=== PATIENT | female | born 1985 | race Caucasian/White ===

== ENCOUNTER 2016-05-19 13:56 | Emergency (ER) | payer BC ==
[~2016-05-19] VITALS: Ht 152.4 cm; Wt 104.1 kg
[~2016-05-19 13:56] MED LIST: ACET-1256 PO; LEVO200T32 PO
[2016-05-19 14:00] VITALS: TEMP 36.8; Ht 152.4 cm; Wt 104.1 kg
[2016-05-19] MEDS ORDERED: PRENTAB65 PO (14:27)
[2016-05-19] MEDS ORDERED: LEVO25TA5 PO (14:27)
[2016-05-19] MEDS ORDERED: LEVO200T6 PO (14:28)
[2016-05-19 14:47] LABS: BASO % 0.3 %; BASO ABS # 0.02 K/uL (0-0.2); COMPLETE YES; HEMATOCRIT 32.4 % (37-47); IG% 0.2 %; LYMPH % 28.1 %; LYMPH ABS # 1.76 K/uL (1.2-3.4); MEAN CELL VOLUME 89.5 fL (80-100); MEAN CORPUSCULAR HEMOGLOBIN 29.8 pg (25-34); MEAN CORPUSCULAR HGB CONC 33.3 g/dl (32-36); MEAN PLATELET VOLUME 9.5 fL (7.4-10.4); MONO % 9.6 %; NEUT % 60.8 %; PLATELET COUNT 262 K/uL (130-400); RED BLOOD COUNT 3.62 M/uL (4.2-5.4); WHITE BLOOD COUNT 6.27 K/uL (4.8-10.8)
[2016-05-19 14:57] LABS: PARTIAL THROMBOPLASTIN RATIO 1.1; PROTHROMBIN TIME (PATIENT) 10.7 SECONDS (9.0-12.0)
[2016-05-19 15:14] LABS: BUN/CREATININE RATIO 14.1 (10-20); CALCIUM 8.4 mg/dl (8.5-10.1); CREATININE 0.87 mg/dl (0.60-1.20); POTASSIUM 3.7 mmol/L (3.5-5.1)
[2016-05-19 15:17] LABS: ALB/GLOB RATIO 1.1 (0.9-2)
[2016-05-19 15:34] LABS: URINE APPEARANCE CLEAR (CLEAR); URINE BILIRUBIN NEG (NEG); URINE COLOR YELLOW; URINE NITRITE NEG (NEG); URINE PH 7.5 (4.5-7.5); URINE SPECIFIC GRAVITY 1.014 (1.000-1.030); UROBILINOGEN NEG (NEG)
[2016-05-19 15:36] LABS: MANUAL MICROSCOPIC REQUIRED? NO; REVIEW REQ? NO
--- NOTE | 2016-05-19 15:47 | DIAGNOSTIC IMAGING REPORT ---
Limited ultrasound <14 WKS SINGLE CLINICAL HISTORY: EVALUATE OB-MEDICAL SCRIBE/VAGINAL BLEEDING vaginal bleeding TECHNIQUE: Transabdominal as well as transvaginal ultrasound COMPARISON STUDY: None FINDINGS: Intrauterine gestational sac is confirmed. pole is not identified. This may gestational sac age is 5 weeks 1 day. It is possible that it is too early to evaluate for viable . The ovaries show no evidence for enlargement. IMPRESSION: 1. Intrauterine gestational sac estimated at 5 3 -- 5 weeks 1 day age. 2. A pole cannot be confirmed based on this exam, although it potentially is secondary to the early gestational age. 3. Follow-up study is recommended in 7-10 days to confirm or exclude viability. Electronically signed by: Jose C Fan M.D. 05/19/2016 3:45 PM Dictated Date/Time: 05/19/2016 3:43 PM
[2016-05-19 17:26] VITALS: BP 110/64; PULSE 91; O2SAT 97
--- NOTE | 2016-05-19 17:52 | EMERGENCY ROOM VISIT NOTE ---
History Report prepared by Akila: Ashvin Doty Under the Supervision of: Dr. Marko Juarez M.D. First contact with patient: 14:07 Chief Complaint: ED VAG BLEEDING Stated Complaint: 7 1/2 WKS PREG., BLEEDING, CRAMPS History of Present Illness The patient is a 30 year old female who presents to the Emergency Room with complaints of mild vaginal bleeding starting today. Yesterday, the patient had an orange-tinge discharge noticed after wiping. Today, the patient started having spotting with bright red blood. She denies passing any blood clots or tissues. She currently complains of a cramping abdominal pain starting today. The patient is currently 7 and a half weeks based on her last period. She denies any prior bleeding with her current . This is her third . She has a history of one miscarriage which occurred very early in the first . She has one daughter. Pt denies LOC, headache, fevers, chills, diaphoresis, visual changes, neck pain, chest pain, breathing difficulties, nausea, vomiting, back pain, melena, hematochezia, urinary symptoms, numbness, weakness, lymphadenopathy, rash, or other complaints. Her first OB-SEMICONDUCTOR PROCESSOR appointment for her current is on May 23. The patient's blood type is O positive. Source of History: patient Onset: today Position: other (global) Symptom Intensity: mild Quality: other (vaginal bleeding) Associated Symptoms: + abdominal pain Review of Systems See HPI for pertinent positives and negatives. A total of ten systems were reviewed and were otherwise negative. Past Medical & Surgical Medical Problems: (1) Miscarriage (2) (3) Sciatica Family History Patient reports no known family medical history. Social History Smoking Status: Never Smoker Marital Status: single Occupation Status: employed Current/Historical Medications Scheduled Levothyroxine Sodium (Levothyroxine Sodium), 25 MCG PO DAILY Levothyroxine Sodium (Levothyroxine Sodium), 200 MCG PO DAILY Multivit-Min W/Fe-Fa (), 1 TAB PO DAILY Allergies Coded Allergies: No Known Allergies (Verified , 05/19/16) Physical Exam Vital Signs Date Time Temp Pulse Resp B/P Pulse Ox O2 Delivery O2 Flow Rate FiO2 05/19/16 17:26 91 16 110/64 97 05/19/16 16:36 79 14 101/64 99 Room Air 05/19/16 15:30 84 118/77 100 Room Air 05/19/16 14:00 36.8 87 20 107/66 100 Room Air Physical Exam GENERAL: Awake, alert, well-appearing, in no distress HENT: Normocephalic, atraumatic. Oropharynx unremarkable. EYES: Normal conjunctiva. Sclera non-icteric. NECK: Supple. No nuchal rigidity. FROM. No JVD. RESPIRATORY: Clear to auscultation. CARDIAC: Regular rate, normal rhythm. Extremities warm and well perfused. Pulses equal. ABDOMEN: Soft, non-distended. Minimal suprapubic tenderness to palpation. No rebound or guarding. No masses. : Normal female anatomy. Cervix is closed with scant amount of bleeding from the os. Small amount of blood in the vaginal vault. MUSCULOSKELETAL: Chest examination reveals no tenderness. The back is symmetrical on inspection without obvious abnormality. There is no CVA tenderness to palpation. No joint edema. LOWER EXTREMITIES: Calves are equal size bilaterally and non-tender. No edema. No discoloration. NEURO: Normal sensorium. No sensory or motor deficits noted. SKIN: No rash or jaundice noted. Medical Decision & Procedures ER Provider Diagnostic Interpretation: US: Radiology results as stated below per my review and radiologist interpretation Limited ultrasound <14 WKS SINGLE CLINICAL HISTORY: EVALUATE OB-SEMICONDUCTOR PROCESSOR/VAGINAL BLEEDING vaginal bleeding TECHNIQUE: Transabdominal as well as transvaginal ultrasound COMPARISON STUDY: None FINDINGS: Intrauterine gestational sac is confirmed. pole is not identified. This may gestational sac age is 5 weeks 1 day. It is possible that it is too early to evaluate for viable . The ovaries show no evidence for enlargement. IMPRESSION: 1. Intrauterine gestational sac estimated at 5 3 -- 5 weeks 1 day age. 2. A pole cannot be confirmed based on this exam, although it potentially is secondary to the early gestational age. 3. Follow-up study is recommended in 7-10 days to confirm or exclude viability. Electronically signed by: Jose C Fan M.D. 05/19/2016 3:45 PM Dictated Date/Time: 05/19/2016 3:43 PM Laboratory Results 05/19/16 14:35 Red Blood Count 3.62, Mean Corpuscular Volume 89.5, Mean Corpuscular Hemoglobin 29.8, Mean Corpuscular Hemoglobin Concent 33.3, Mean Platelet Volume 9.5, Neutrophils (%) (Auto) 60.8, Lymphocytes (%) (Auto) 28.1, Monocytes (%) (Auto) 9.6, Eosinophils (%) (Auto) 1.0, Basophils (%) (Auto) 0.3, Neutrophils # (Auto) 3.82, Lymphocytes # (Auto) 1.76, Monocytes # (Auto) 0.60, Eosinophils # (Auto) 0.06, Basophils # (Auto) 0.02 05/19/16 14:35 Test 05/19/16 14:35 05/19/16 14:45 White Blood Count 6.27 K/uL (4.8-10.8) Red Blood Count 3.62 M/uL (4.2-5.4) Hemoglobin 10.8 g/dL (12.0-16.0) Hematocrit 32.4 % (37-47) Mean Corpuscular Volume 89.5 fL (80-100) Mean Corpuscular Hemoglobin 29.8 pg (25-34) Mean Corpuscular Hemoglobin Concent 33.3 g/dl (32-36) Platelet Count 262 K/uL (130-400) Mean Platelet Volume 9.5 fL (7.4-10.4) Neutrophils (%) (Auto) 60.8 % Lymphocytes (%) (Auto) 28.1 % Monocytes (%) (Auto) 9.6 % Eosinophils (%) (Auto) 1.0 % Basophils (%) (Auto) 0.3 % Neutrophils # (Auto) 3.82 K/uL (1.4-6.5) Lymphocytes # (Auto) 1.76 K/uL (1.2-3.4) Monocytes # (Auto) 0.60 K/uL (0.11-0.59) Eosinophils # (Auto) 0.06 K/uL (0-0.5) Basophils # (Auto) 0.02 K/uL (0-0.2) RDW Standard Deviation 47.9 fL (36.4-46.3) RDW Coefficient of Variation 14.5 % (11.5-14.5) Immature Granulocyte % (Auto) 0.2 % Immature Granulocyte # (Auto) 0.01 K/uL (0.00-0.02) Prothrombin Time 10.7 SECONDS (9.0-12.0) Prothromb Time International Ratio 1.0 (0.9-1.1) Activated Partial Thromboplast Time 28.7 SECONDS (21.0-31.0) Partial Thromboplastin Ratio 1.1 Anion Gap 9.0 mmol/L (3-11) Est Creatinine Clear Calc Drug Dose 104.8 ml/min Estimated GFR () 105.1 Estimated GFR (Non- 90.7 BUN/Creatinine Ratio 14.1 (10-20) Calcium Level 8.4 mg/dl (8.5-10.1) Total Bilirubin 0.6 mg/dl (0.2-1) Aspartate Amino Transf (AST/SGOT) 14 U/L (15-37) Alanine Aminotransferase (ALT/SGPT) 16 U/L (12-78) Alkaline Phosphatase 57 U/L (45-117) Total Protein 7.4 gm/dl (6.4-8.2) Albumin 3.9 gm/dl (3.4-5.0) Globulin 3.5 gm/dl (2.5-4.0) Albumin/Globulin Ratio 1.1 (0.9-2) Human Chorionic Gonadotropin, Quant 3083 mIU/mL Urine Color YELLOW Urine Appearance CLEAR (CLEAR) Urine pH 7.5 (4.5-7.5) Urine Specific Guy 1.014 (1.000-1.030) Urine Protein NEG (NEG) Urine Glucose (UA) NEG (NEG) Urine Ketones NEG (NEG) Urine Occult Blood TRACE (NEG) Urine Nitrite NEG (NEG) Urine Bilirubin NEG (NEG) Urine Urobilinogen NEG (NEG) Urine Leukocyte Esterase NEG (NEG) Urine WBC (Auto) 0 /hpf (0-5) Urine RBC (Auto) 0-4 /hpf (0-4) Urine Hyaline Casts (Auto) 0 /lpf (0-5) Urine Epithelial Cells (Auto) 10-20 /lpf (0-5) Urine Bacteria (Auto) NEG (NEG) Urine Test POS (NEG) Laboratory results reviewed by ms ED Course 1407: The patient was evaluated in room C08. A complete history and physical exam was performed. 1611: I discussed the patient's case with Dr. Betancourt, OB-SEMICONDUCTOR PROCESSOR with [facility]. She recommended bleeding precautions which have already been discussed with the patient. She advised for the patient to keep her OB-SEMICONDUCTOR PROCESSOR appointment on May [id number]: I reevaluated the patient. Discussed results and discharge instructions: She verbalized understanding and agreement. The patient is ready for discharge. Medical Decision Prior records/ancillary studies reviewed. Triage Nursing notes reviewed and agree them. Additional history obtained from the family. The patient's history was concerning for vaginal bleeding and abdominal pain. Differential diagnosis: Etiologies such as ectopic , dysfunction uterine bleeding, bleeding dyscrasia, trauma, infection, as well as others were entertained. Physical examination: As above. Closed os. Minimal blood noted in the cervix and the vaginal vault ER treatment provided: Patient was hydrated with IV fluids On reassessment the patient felt better. Diagnostic interpretation by me: The labs revealed the patient to the Rh positive. CBC, coagulation studies, and chemistries were unremarkable. Quantitative hCG was 3083 Imaging studies: Ultrasound as above Consultation: A consultation was placed with the director of teaching and learning physician, Dr. Betancourt. The case was discussed and diagnostics were reviewed. As the patient is very early vaginal bleeding instructions and precautions are recommended. She will be followed up closely in the office first thing next week. If she worsens in any way or has any complication she will come back to the emergency department for reevaluation.. The patient has first trimester vaginal bleeding. It is too early to tell what will happen with this . There is no evidence of ectopic . Clinically the patient is doing well. She and her significant other feel comfortable with conservative management. She will return if she has any problems. By the evaluation outlined above emergent etiologies such as bleeding dyscrasia , ectopic , trauma, as well as others were deemed relatively unlikely. The patient and significant other were informed about the findings as listed above. All questions were answered and they were pleased with the treatment. Return instructions were outlined and the patient was discharged in stable condition. Outpatient prescription management: None Referral: The patient was referred to WORKFORCE ADVISOR for follow-up for a recheck of her current condition. The chart was completed utilizing [employer] Speech voice recognition software. Grammatical errors, random word insertions, pronoun errors, and incomplete sentences are an occasional consequence of this system due to software limitations, ambient noise, and hardware issues. Any formal questions or concerns about the content, text, or information contained within the body of this dictation should be directly addressed to the physician for clarification. Consults Time Called: 1606 Consulting Physician: Dr. Betancourt, OB-SEMICONDUCTOR PROCESSOR with [facility]. Returned Call: 1 I discussed the patient's case with Dr. Betancourt, OB-SEMICONDUCTOR PROCESSOR with [facility]. She recommended bleeding precautions which have already been discussed with the patient. She advised for the patient to keep her OB-SEMICONDUCTOR PROCESSOR appointment on May 23. Impression Primary Impression: First trimester bleeding Scribe Attestation The scribe's documentation has been prepared under my direction and personally reviewed by me in its entirety. I confirm that the note above accurately reflects all work, treatment, procedures, and medical decision making performed by me. Departure Information Dispostion Home / Self-Care Referrals Karthikeyan Sevilla M.D. (PCP) Forms HOME CARE DOCUMENTATION FORM, IMPORTANT VISIT INFORMATION, WORK / SCHOOL INSTRUCTIONS Patient Instructions My [facility] Additional Instructions Return to the emergency department for passing out, abdominal pain, bleeding more than 3 pads an hour for 3 consecutive hours, or as needed. No tampon use, intercourse, physical exertion, or strenuous activity. Rest and drink plenty of fluids. Follow-up with WORKFORCE ADVISOR as scheduled on Monday.
--- NOTE | 2016-05-20 09:36 | DIAGNOSTIC IMAGING REPORT ---
Limited ultrasound <14 WKS SINGLE CLINICAL HISTORY: EVALUATE OB-THREAD SINGER/VAGINAL BLEEDING vaginal bleeding TECHNIQUE: Transabdominal as well as transvaginal ultrasound COMPARISON STUDY: None FINDINGS: Intrauterine gestational sac is confirmed. pole is not identified. This may gestational sac age is 5 weeks 1 day. It is possible that it is too early to evaluate for viable . The ovaries show no evidence for enlargement. IMPRESSION: 1. Intrauterine gestational sac estimated at 5 3 -- 5 weeks 1 day age. 2. A pole cannot be confirmed based on this exam, although it potentially is secondary to the early gestational age. 3. Follow-up study is recommended in 7-10 days to confirm or exclude viability. Electronically signed by: Jose C Fan M.D. 05/19/2016 3:45 PM Dictated Date/Time: 05/19/2016 3:43 PM
[2016-05-23] MEDS ORDERED: METR500T PO (21:06)
[2016-06-28] MEDS ORDERED: OXYC-57 PO (16:18)
== END 2016-05-19 17:29 | disposition home or self-care (01) ==
LOC: C.EDB 13:58 → C.EDC 17:29
DX: O46.91 Antepartum hemorrhage, unspecified, first trimester (principal)

== ENCOUNTER 2016-05-21 08:09 | Emergency (ER) | payer BC ==
[~2016-05-21] VITALS: Ht 162.6 cm; Wt 100.7 kg
[~2016-05-21 08:09] MED LIST changes: -ACET-1256 PO; -LEVO200T32 PO; +LEVO200T6 PO; +LEVO25TA5 PO; +PRENTAB65 PO
[2016-05-21 08:12] VITALS: TEMP 36.9; Ht 162.6 cm; Wt 100.7 kg
[2016-05-21] MEDS ORDERED: SODIUM CHLORIDE 0.9% 1000ML 1,000 ML IV ONE ×2 (08:30→11:00)
[2016-05-21 08:52] LABS: HEMATOCRIT 33.9 % (37-47); MEAN CELL VOLUME 90.2 fL (80-100); MEAN CORPUSCULAR HEMOGLOBIN 30.6 pg (25-34); MEAN CORPUSCULAR HGB CONC 33.9 g/dl (32-36); MEAN PLATELET VOLUME 9.8 fL (7.4-10.4); PLATELET COUNT 246 K/uL (130-400); RED BLOOD COUNT 3.76 M/uL (4.2-5.4); WHITE BLOOD COUNT 6.09 K/uL (4.8-10.8)
--- NOTE | 2016-05-21 08:58 | EMERGENCY ROOM VISIT NOTE ---
History Report prepared by Akila: Catie Dunaway Under the Supervision of: Dr. Connor Tracy M.D. First contact with patient: 08:21 Chief Complaint: ED VAG BLEEDING Stated Complaint: ABD PAIN, VAGINAL BLEEDING,6 WK PREG History of Present Illness The patient is a 30 year old female who presents to the Emergency Room with complaints of worsening vaginal bleeding that began . She currently rates her discomfort as a 9/10 in severity. The patient states that this is her third , noting that she has had one previous miscarriage and has one child at home. She states that she was evaluated in the emergency department on after consulting her unix engineer with vaginal bleeding. The patient states that today she is passing clots of blood. She also associates lower abdominal pain and severe pain into her left leg. The patient states that lying flat worsens her discomfort. She states that her blood type is O+. The patient denies any fever or chills and mentions that she has had a cholecystectomy in the past. Source of History: patient Onset: Position: other (vaginal) Symptom Intensity: 9/10 Quality: other (bleeding) Timing: worsening Modifying Factors (Worsening): other (lying flat) Associated Symptoms: + abdominal pain (lower), No chills, No fevers Note: Associated Symptoms: severe pain into her left leg Review of Systems No additional complaints since visit two days ago. Past Medical & Surgical Medical Problems: (1) Miscarriage (2) (3) Sciatica Surgical Problems: (1) S/P cholecystectomy (2) S/P thyroid surgery Family History Cancer Diabetes mellitus Heart disease Hypertension Social History Smoking Status: Never Smoker Smokeless Tobacco Use: No Alcohol Use: none Marital Status: Housing Status: lives with family Occupation Status: employed Current/Historical Medications Scheduled Levothyroxine Sodium (Levothyroxine Sodium), 25 MCG PO DAILY Levothyroxine Sodium (Levothyroxine Sodium), 200 MCG PO DAILY Multivit-Min W/Fe-Fa (), 1 TAB PO DAILY Scheduled PRN Oxycodone/Acetaminophen 5MG/325MG (Percocet 5MG/325MG), 1-2 TABLETS PO Q4H PRN for Pain Allergies Coded Allergies: No Known Allergies (Verified , 05/21/16) Physical Exam Vital Signs Date Time Temp Pulse Resp B/P Pulse Ox O2 Delivery O2 Flow Rate FiO2 2/11/17 13:28 80 18 89/51 99 05/21/16 13:04 80 18 89/51 99 Room Air 05/21/16 10:55 74 18 110/66 99 Room Air 05/21/16 09:01 76 20 92/69 100 Room Air 84 103/73 88 93/71 05/21/16 08:12 36.9 105 20 98/70 100 Room Air Physical Exam GENERAL: Patient awake, alert, in moderate to severe distress. Patient appears pale. SKIN: No erythema, pallor, cyanosis or rash HEENT: Normal head, pupils equal, reactive to light and accommodation. Neck: Without adenopathy, no neck vein distention. LUNGS: Clear to auscultation. No wheezes, no rales, no rhonchi. HEART: No murmurs. No gallops. No rubs ABDOMEN: Soft, nontender PELVIC: 20-50 cc dark maroon blood in vaginal vault, os closed to ring forcep, uterus slightly enlarged and tilted to left, nontender, no adnexal masses palpated. EXTREMITIES: No signs of trauma or infection. NEUROLOGIC: Cranial nerves II-XII within normal limits. No gross motor sensory function deficits. Medical Decision & Procedures ER Provider Diagnostic Interpretation: US results are interpretations by the radiologist and per my review. ULTRASOUND OF THE PELVIS CLINICAL HISTORY: Vaginal bleeding. COMPARISON STUDY: Pelvic ultrasound dated 05/19/16. Reportedly 6 weeks . TECHNIQUE: Real-time, grayscale, and color flow sonography of the pelvis is performed both transabdominally and endovaginally. Images are reviewed in the transverse and longitudinal planes. FINDINGS: Uterus: The uterus is normal in size and echotexture, measuring 9.3 x 5.2 x 6.3 cm. Gestation: There is a small gestational sac identified. The mean gestational sac diameter measures 0.88 cm. This is too small for accurate estimation of dates. No yolk sac or parts are identified. Ovaries: The ovaries are normal in size and morphology. The right ovary measures 2.9 x 2.2 x 2.6 cm and the left ovary measures 2.5 x 1.3 x 2.5 cm. A corpus luteum is unremarkable. Normal Doppler waveforms are shown within both ovaries. Pelvis: There is no free fluid in the cul-de-sac. No concerning adnexal lesion is seen. IMPRESSION: 1. There is a small gestational sac identified. No parts are seen and this has not significantly changed from 05/19/2016. This could simply reflect an intrauterine gestation that is too small to visualize or possibly a blighted ovum. Although there is no concerning adnexal lesion identified, without a confirmed intrauterine gestation an ectopic would be impossible to exclude. Close clinical, laboratory, and sonographic follow-up is recommended. 2. The ovaries are normal as visualized noting a corpus luteum on the right. Electronically signed by: Patrick Ta M.D. 05/21/2016 10:15 AM Laboratory Results 05/21/16 08:40 Test 05/21/16 08:40 Red Blood Count 3.76 M/uL (4.2-5.4) Mean Corpuscular Volume 90.2 fL (80-100) Mean Corpuscular Hemoglobin 30.6 pg (25-34) Mean Corpuscular Hemoglobin Concent 33.9 g/dl (32-36) RDW Standard Deviation 47.9 fL (36.4-46.3) RDW Coefficient of Variation 14.5 % (11.5-14.5) Mean Platelet Volume 9.8 fL (7.4-10.4) Human Chorionic Gonadotropin, Quant 2751 mIU/mL Laboratory results as stated above per my review. Medications Administered Medications (Trade) Dose Ordered Sig/Michaelle Route Start Time Stop Time Status Last Admin Dose Admin Sodium Chloride 1,000 ml @ 1,000 mls/hr Q1H ONCE IV 05/21/16 08:30 05/21/16 09:29 DC 05/21/16 08:43 1,000 MLS/HR Sodium Chloride (Nss 1000ml) 1,000 ml @ 1,000 mls/hr Q1H ONCE IV 05/21/16 11:00 05/21/16 11:59 DC 05/21/16 10:59 1,000 MLS/HR Oxycodone/ Acetaminophen (Percocet 5-325mg Tab) 1 tab NOW ONCE PO 05/21/16 12:00 05/21/16 12:01 DC 05/21/16 11:52 1 TAB ED Course 0823: Past medical records reviewed. The patient was evaluated in room B6. A complete history and physical examination was performed. 0830: Ordered Sodium Chloride 1000 ml @ 1000 mls/hr IV. 0831: I performed the pelvic exam at this time. See physical exam for further detail. Per records from 05/17/16 the patient was typed and crossed and her blood type is O+. 1100: Ordered Sodium Chloride 1000 ml @ 1000 mls/hr IV. 1137: I reevaluated the patient and she is resting comfortably. I discussed the exam findings with her and I discussed the treatment plan. She verbalized complete understanding and agreement. She is ready to go home. 1147: I discussed the patients case with Dr. Saxena, unix engineer. He will follow up with the patient in the office. 1200: Ordered Oxycodone/Acetaminophen 1 tab PO. Medical Decision Nurses notes reviewed. Medical history sheet reviewed. Differential diagnosis includes but is not limited to: threatened ab, inevitable ab, complete ab. The patient is here with vaginal bleeding. The patient was seen 2 days ago for the same problem. Ultrasound today as listed above. Quantitative beta hCG is down from what it was 2 days ago. In all likelihood the patient has lost the . I discussed this with the patient and her . I also discussed this with Dr. Saxena over the phone. The patient is having some pelvic pain. She was given 1 Percocet here and prescription for the same. She is to follow up with EXECUTIVE DIRECTOR in 2 days. The patient was encouraged to return here sooner if she has having heavy bleeding or becoming lightheaded. The patient's hemoglobin was checked. She is Rh+. I do not believe the patient has an ectopic . [place] Drug Monitoring Program Search Results: patient reviewed within database, no issues identified Consults Time Called: 1147 Consulting Physician: Dr. Saxena, unix engineer Returned Call: 1146 I discussed the patients case with Dr. Saxena, unix engineer. He will follow up with the patient in the office. Impression Primary Impression: Inevitable Scribe Attestation The scribe's documentation has been prepared under my direction and personally reviewed by me in its entirety. I confirm that the note above accurately reflects all work, treatment, procedures, and medical decision making performed by me. Departure Information Dispostion Home / Self-Care Prescriptions Oxycodone/Acetaminophen 5MG/325MG (PERCOCET 5MG/325MG) Tab 1-2 TABLETS PO Q4H Y for Pain, #10 TAB Prov: Connor Tracy M.D. 05/21/16 Referrals Karthikeyan Sevilla M.D. (PCP) Forms HOME CARE DOCUMENTATION FORM, IMPORTANT VISIT INFORMATION Patient Instructions ED Miscarriage Poss, My [facility] Additional Instructions Drink extra fluids. Stay off your feet as much as possible. Return here if you're having heavy vaginal bleeding/cramping Follow-up with your EXECUTIVE DIRECTOR on Monday.
--- NOTE | 2016-05-21 10:16 | DIAGNOSTIC IMAGING REPORT ---
ULTRASOUND OF THE PELVIS CLINICAL HISTORY: Vaginal bleeding. COMPARISON STUDY: Pelvic ultrasound dated 05/19/16. Reportedly 6 weeks . TECHNIQUE: Real-time, grayscale, and color flow sonography of the pelvis is performed both transabdominally and endovaginally. Images are reviewed in the transverse and longitudinal planes. FINDINGS: Uterus: The uterus is normal in size and echotexture, measuring 9.3 x 5.2 x 6.3 cm. Gestation: There is a small gestational sac identified. The mean gestational sac diameter measures 0.88 cm. This is too small for accurate estimation of dates. No yolk sac or parts are identified. Ovaries: The ovaries are normal in size and morphology. The right ovary measures 2.9 x 2.2 x 2.6 cm and the left ovary measures 2.5 x 1.3 x 2.5 cm. A corpus luteum is unremarkable. Normal Doppler waveforms are shown within both ovaries. Pelvis: There is no free fluid in the cul-de-sac. No concerning adnexal lesion is seen. IMPRESSION: 1. There is a small gestational sac identified. No parts are seen and this has not significantly changed from 05/19/2016. This could simply reflect an intrauterine gestation that is too small to visualize or possibly a blighted ovum. Although there is no concerning adnexal lesion identified, without a confirmed intrauterine gestation an ectopic would be impossible to exclude. Close clinical, laboratory, and sonographic follow-up is recommended. 2. The ovaries are normal as visualized noting a corpus luteum on the right. Electronically signed by: Patrick Ta M.D. 05/21/2016 10:15 AM Dictated Date/Time: 05/21/2016 10:09 AM
[2016-05-21] MEDS ORDERED: OXYC-57 PO (11:58)
[2016-05-21] MEDS ORDERED: OXYCODONE/ACETAMINOPHEN 5-325 TAB PO ONE (12:00)
[2016-05-21 13:28] VITALS: BP 89/51; PULSE 80; O2SAT 99
[2016-05-23] MEDS ORDERED: METR500T PO (21:06)
[2016-06-28] MEDS ORDERED: OXYC-57 PO (16:18)
== END 2016-05-21 13:31 | disposition home or self-care (01) ==
LOC: C.EDB 08:12
DX: O03.9 Complete or unspecified spontaneous abortion without complication (principal); Z3A.01 Less than 8 weeks gestation of pregnancy; Z79.899 Other long term (current) drug therapy

== ENCOUNTER 2016-05-23 11:54 | Observation (INO) | payer BC ==
[2016-05-23] VITALS (7 sets, daily range): BP systolic 90–125; BP diastolic 58–79; PULSE 74–90; TEMP 36.5–37.3; O2SAT 94–100; Ht 162.6 cm; Wt 100.0 kg
[~2016-05-23] VITALS: Ht 162.6 cm; Wt 100.0 kg
[~2016-05-23 11:54] MED LIST changes: +OXYC-57 PO
[2016-05-23] MEDS ORDERED: NURSING VERBAL MED ORDER ONE ×2 (12:45→13:00)
[2016-05-23] MEDS ORDERED: SODIUM CHLORIDE 0.9% 1000ML 1,000 ML IV SCH ×2 (13:00→19:07)
[2016-05-23] MEDS: MoRPHine SULFATE 4 MG/ML 1 ML CARP\\VIAL IV PRN ×2 (13:01→14:10)
[2016-05-23 13:40] LABS: HEMATOCRIT 29.5 % (37-47); MEAN CELL VOLUME 87.8 fL (80-100); MEAN CORPUSCULAR HEMOGLOBIN 29.2 pg (25-34); MEAN CORPUSCULAR HGB CONC 33.2 g/dl (32-36); MEAN PLATELET VOLUME 9.1 fL (7.4-10.4); PLATELET COUNT 235 K/uL (130-400); RED BLOOD COUNT 3.36 M/uL (4.2-5.4); WHITE BLOOD COUNT 5.18 K/uL (4.8-10.8)
[2016-05-23] MEDS ORDERED: INFLUENZA VIRUS QUAD VACCINE 0.5 ML SYR IM. ONE (15:00)
[2016-05-23] MEDS ORDERED: INFLUENZA ADMINISTRATION CHARGE ONE (15:00)
[2016-05-23] MEDS: MoRPHine SULFATE 2 MG/ML CARP IV PRN ×2 (15:08→20:04)
[2016-05-23] MEDS ORDERED: LIDOCAINE HCL 2% 2 ML VIAL (20MG/ML) ONE (16:20)
[2016-05-23] MEDS ORDERED: PHENYLEPHRINE HCL INJ 10 MG/ML VIAL ONE (16:20)
[2016-05-23] MEDS ORDERED: MIDAZOLAM HCL 1 MG/ML 2ML VIAL ONE (16:20)
[2016-05-23] MEDS ORDERED: ROCURONIUM BROMIDE 10 MG/ML 5 ML VIAL ONE ×2 (16:20→18:18)
[2016-05-23] MEDS ORDERED: GLYCOPYRROLATE INJ 0.2 MG/ML VIAL ONE (16:20)
[2016-05-23] MEDS ORDERED: ONDANSETRON INJ 2 MG/ML 2 ML VIAL ONE (16:20)
[2016-05-23] MEDS ORDERED: SUCCINYLCHOLINE CHLORIDE 20 MG/ML 10 ML VIAL IV ONE (16:20)
[2016-05-23] MEDS ORDERED: FENTANYL CITRATE INJ 50 MCG/1 ML 2 ML VIAL ONE ×2 (16:20→18:45)
[2016-05-23] MEDS ORDERED: PROPOFOL IV EMULSION 10 MG/ML 20 ML VIAL IV ONE ×2 (16:20→18:18)
[2016-05-23] MEDS ORDERED: NEOSTIGMINE METHYLSULFATE 5 MG/5 ML SYR ONE (16:20)
[2016-05-23] MEDS ORDERED: DEXAMETHASONE SOD INJ 4 MG/ML VIAL ONE (16:20)
--- NOTE | 2016-05-23 17:39 | History and Physical ---
History & Physical Date & Time of Service: May 23, 2016 at 17:23 Chief Complaint: Missed Primary Care Physician: Karthikeyan Sevilla M.D. History of Present Illness Source: patient Patient is 30yo @ 7w6d weeks by LMP of 03/29/16. She has had pelvic pain and vaginal bleeding. Ultrasound x 3 shows gestational sac with no viable . bHCG has dropped from 3083 to 2751 over 48 hours. Today's ultrasound shows the gestational sac low in the uterus, lower than prior imaging, close to the cervix. Patient was offered options of watchful waiting, cytotec induction, or surgery, and she elected to undergo surgical treatment. History of vaginal delivery x 1, SAB that passed on its own. Past Medical/Surgical History Medical Problems: (1) Miscarriage Status: Resolved (2) Status: Resolved (3) Sciatica Status: Chronic Surgical Problems: (1) S/P cholecystectomy Status: Resolved (2) S/P thyroid surgery Status: Resolved Family History Cancer Diabetes mellitus Heart disease Hypertension Social History Smoking Status: Never Smoker Marital Status: Occupational Status: employed Immunizations History of Influenza Vaccine: Unknown History of Tetanus Vaccine?: Unknown History of Pneumococcal: Unknown History of Hepatitis B Vaccine: Unknown Hepatitis Immunization Date: Oct 14, 2002 Multi-Drug Resistant Organisms History of MDRO: No Allergies Coded Allergies: No Known Allergies (Verified , 05/21/16) Home Medications Scheduled Levothyroxine Sodium (Levothyroxine Sodium), 25 MCG PO DAILY Levothyroxine Sodium (Levothyroxine Sodium), 200 MCG PO DAILY Multivit-Min W/Fe-Fa (), 1 TAB PO DAILY Scheduled PRN Oxycodone/Acetaminophen 5MG/325MG (Percocet 5MG/325MG), 1-2 TABLETS PO Q4H PRN for Pain Review of Systems Constitutional: No problem reported Eyes: No problem reported ENT: No problem reported Respiratory: No problem reported Cardiovascular: No problem reported Abdomen: No nausea, No vomiting Musculoskeletal: + problem reported (left sciatic nerve pain) Genitourinary - Female: + vaginal bleeding, No vaginal discharge Neurologic: No problem reported Psychiatric: No problem reported Endocrine: No problem reported Hematologic / Lymphatic: No problem reported Integumentary: No problem reported Allergic / Immunologic: No problem reported Physical Exam Vital Signs Date Time Temp Pulse Resp B/P Pulse Ox O2 Delivery O2 Flow Rate FiO2 05/23/16 12:42 36.5 88 18 125/79 100 Room Air 05/23/16 12:25 36.5 88 18 125/79 100 Room Air General Appearance: no apparent distress Head: normocephalic, atraumatic Eyes: normal inspection ENT: hearing grossly normal Neck: supple, no JVD Respiratory/Chest: normal breath sounds, no respiratory distress Cardiovascular: regular rate, rhythm Abdomen/GI: non tender, soft Back: normal inspection Extremities/Musculoskelatal: + pertinent finding (pain left buttocks, sciatic) Neurologic/Psych: alert, normal mood/affect, normal reflexes, oriented x 3 Skin: normal color, warm/dry Lymphatic: no adenopathy Diagnostics Laboratory Results Results Past 24 Hours Test 05/23/16 13:31 Range/Units White Blood Count 5.18 4.8-10.8 K/uL Red Blood Count 3.36 4.2-5.4 M/uL Hemoglobin 9.8 12.0-16.0 g/dL Hematocrit 29.5 37-47 % Mean Corpuscular Volume 87.8 80-100 fL Mean Corpuscular Hemoglobin 29.2 25-34 pg Mean Corpuscular Hemoglobin Concent 33.2 32-36 g/dl RDW Standard Deviation 45.9 36.4-46.3 fL RDW Coefficient of Variation 14.2 11.5-14.5 % Platelet Count 235 130-400 K/uL Mean Platelet Volume 9.1 7.4-10.4 fL Impression Assessment and Plan Blighted ovum Plan: Suction D&C in main OR Advanced Directives Existing Living Will: No 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
--- NOTE | 2016-05-23 17:39 | History & Physical Bridge Note ---
H&P Re-Evaluation Bridge Note: I have examined the patient, reviewed the History & Physical and in the interval since the performance of the History & Physical I have noted the following changes of clinical significance: No changes noted
[2016-05-23] MEDS ORDERED: DOXYCYCLINE HYCLATE 100 MG CAP PO SCH (18:00)
[2016-05-23] MEDS ORDERED: FENTANYL CITRATE INJ 50 MCG/1 ML 2 ML VIAL IV PRN (18:30)
[2016-05-23] MEDS ORDERED: ATROPINE SULFATE 0.1 MG/ML 5ML SYR IV PRN (18:30)
[2016-05-23] MEDS ORDERED: NALOXONE HCL 0.4 MG/1 ML VIAL/CARP IV PRN (18:30)
[2016-05-23] MEDS ORDERED: ONDANSETRON INJ 2 MG/ML 2 ML VIAL IV PRN ×2 (18:30→19:15)
[2016-05-23] MEDS ORDERED: PROMETHAZINE HCL INJ 12.5 MG in SODIUM CHLORIDE 0.9% 50ML 50 ML IV PRN (18:30)
[2016-05-23] MEDS ORDERED: EpHEDrine SULFATE INJ 50 MG/ML AMP IV PRN (18:30)
[2016-05-23] MEDS ORDERED: FLUMAZENIL 0.1 MG/1 ML 10 ML VIAL IV PRN (18:30)
--- NOTE | 2016-05-23 18:36 | Medical Student: [facility] ---
Med Student History & Physical Date of Service May 23, 2016. Chief Complaint Missed History of Present Illness Source: patient, partner, clinic records, hospital records Patient is a 30 year old , LMP 03/29/17, 5 weeks 5 days GA by US on 05/19 and 7 weeks 6 days GA by LMP on 03/29, who presented today for vaginal bleeding and lower abdominal pain. The vaginal bleeding and pain began on 05/19/16. The pain was located in her lower abdomen, but she was also experiencing sharp stabbing down radiating from the middle of her left buttock to her left foot. Transabdominal and transvaginal US on 05/19 showed an intrauterine gestational sac 5 weeks 1 day. A pole could not be determined, although that could have been secondary to early gestational age. She came back to the ER on 05/21 and transvaginal US showed a small gestational sac with no parts. Again, the US could reflect an intrauterine gestation that is too small to visualize or a blighted ovum. A right corpus luteum cyst was also visualized. Transvaginal US today in clinic again showed a small gestational sac and no parts. Quantitative beta HCG went down from 3083 on 05/19 to 2781 on 05/21. Patient's PMH is significant for a previous miscarriage about 3-4 years ago. Her surgical history is significant for a cholecystectomy in 2008 and a thyroidectomy in 2000. Obstetrical history is significant for a spontaneous 3-4 years ago, and a at term 8 years ago with no complications. Gynecologic history is significant for menarche beginning at age 14. Menstruation occurs every 26 days and usually last 5 days. Mild cramping occurs with each period. No history of abnormal pap smears or STDs. Patient is blood type O +. Patient denies DIAMOND, vision changes, chest pain, and SOB. She is experiencing mild lower abdominal pain and severe left leg pain that is stabbing in nature. Patient does not feel contractions, movements and does not have any fluid leaks. She is having vaginal bleeding. She needs to change her pad about every 2-3 hours. OB History OB history significant for a spontaneous 3-4 years ago and a term 8 years ago with no complications. 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 Menstruation occurs every 26 days and lasts about 5 days with mild cramping. No history of abnormal pap smears or STDs. Past Medical History PMH is insignificant Past Surgical History Past surgical history is significant for a cholecystectomy in 2008 and a thyroidectomy in 2000. Family History Mother and Father - Diabetes Father - HTN and heart disease Grandmother - Ovarian CA Social History Smoking Status: Never Smoker Smokeless Tobacco Use: No Alcohol Use: none Drug Use: none Marital Status: Housing status: lives with significant other Occupational Status: employed Allergies Coded Allergies: No Known Allergies (Verified , 05/21/16) Home Medications Levothyroxine Sodium (Levothyroxine Sodium), 25 MCG PO DAILY Levothyroxine Sodium (Levothyroxine Sodium), 200 MCG PO DAILY Oxycodone/Acetaminophen 5MG/325MG (Percocet 5MG/325MG), 1-2 TABLETS PO Q4H PRN for Pain Multivit-Min W/Fe-Fa (), 1 TAB PO DAILY Review of Systems Constitutional: No chills, No fever Eyes: No worsening of vision Respiratory: No cough, No shortness of breath Cardiovascular: No chest pain, No palpitations Abdomen: + pain, No constipation, No diarrhea, No nausea, No vomiting Genitourinary - Female: No dysuria Neurologic: + numbness/tingling (left leg ), + weakness (left leg ) Integumentary: No itch, No rash Physical Exam Vital Signs: Vital Signs Past 12 Hours Date Time Temp Pulse Resp B/P Pulse Ox O2 Delivery O2 Flow Rate FiO2 05/23/16 12:42 36.5 88 18 125/79 100 Room Air 05/23/16 12:25 36.5 88 18 125/79 100 Room Air General Appearance: + mild distress Respiratory/Chest: lungs clear, normal breath sounds Cardiovascular: regular rate, rhythm, no edema, no gallop, no JVD, no murmur Abdomen / GI: normal bowel sounds, soft, no organomegaly, + tenderness (lower abdomen ) Back: normal inspection Extremities: no calf tenderness, normal capillary refill, no pedal edema Neurologic/Psych: normal reflexes (2 + left patellar reflex ), + motor weakness (4/5 strength left lower extremity ), + sensory deficit (decrease sensation left lower extremity ) Skin: normal color, warm/dry, no rash Laboratory Results 05/23/16 13:31 Test 05/23/16 13:31 Red Blood Count 3.36 M/uL (4.2-5.4) Mean Corpuscular Volume 87.8 fL (80-100) Mean Corpuscular Hemoglobin 29.2 pg (25-34) Mean Corpuscular Hemoglobin Concent 33.2 g/dl (32-36) RDW Standard Deviation 45.9 fL (36.4-46.3) RDW Coefficient of Variation 14.2 % (11.5-14.5) Mean Platelet Volume 9.1 fL (7.4-10.4) Assessment and Plan 30 year old , 5 weeks 5 days GA by US on 05/19, 7 weeks 6 days GA by LMP on 03/29, who presented for vaginal bleeding and lower abdominal pain for 4 days duration. Quantitative beta HCG decreased from 3083 on 05/19 to 2781 on . Transvaginal US on 05/21 and today showed a small gestational sac with no parts, most likely indicative of a blighted ovum. No heart tones were heard today at OB visit. Plan is to proceed with D & E today for spontaneous . Patient was consented and understands the risks of the procedure.
[2016-05-23] MEDS ORDERED: KETOROLAC TROMETHAMINE 30 MG/ML VIAL ONE (19:09)
[2016-05-23] MEDS ORDERED: PROMETHAZINE HCL INJ 25 MG in SODIUM CHLORIDE 0.9% 50ML 50 ML IV PRN (19:15)
[2016-05-23] MEDS ORDERED: OXYCODONE/ACETAMINOPHEN 5-325 TAB PO PRN ×2 (19:15)
[2016-05-23] MEDS ORDERED: KETOROLAC TROMETHAMINE 30 MG/ML VIAL IV. PRN (19:15)
--- NOTE | 2016-05-23 19:15 | Anesthesiology Progress Note ---
Anesthesia Post Op Note Date & Time May 23, 2016 at 19:14 Vital Signs Pain Intensity: 4 Vital Signs Past 12 Hours Date Time Temp Pulse Resp B/P Pulse Ox O2 Delivery O2 Flow Rate FiO2 05/23/16 19:00 73 20 97/64 100 Mask 10 05/23/16 18:50 74 16 95/62 100 Mask 10 05/23/16 18:40 36.6 84 18 102/65 100 Mask 10 05/23/16 15:50 Room Air 05/23/16 15:50 37.3 80 20 91/58 Room Air 05/23/16 12:42 36.5 88 18 125/79 100 Room Air 05/23/16 12:25 36.5 88 18 125/79 100 Room Air Notes Mental Status: alert / awake / arousable, participated in evaluation Pt Amnestic to Procedure: Yes Nausea / Vomiting: adequately controlled Pain: adequately controlled Airway Patency, RR, SpO2: stable & adequate BP & HR: stable & adequate Hydration State: stable & adequate Anesthetic Complications: no major complications apparent
[2016-05-23] MEDS ORDERED: KETOROLAC TROMETHAMINE 30 MG/ML VIAL IV STA (19:27)
[2016-05-23] MEDS ORDERED: DOXYCYCLINE HYCLATE 100 MG CAP PO ONE (20:00)
[2016-05-23 21:05] LABS: CREATININE 0.7 mg/dl (0.60-1.20)
[2016-05-23] MEDS ORDERED: METR500T PO (21:06)
--- NOTE | 2016-05-23 21:07 | Discharge Instructions ---
Discharge Instructions Visit Reason for Visit: Missed Discharge Discharge Diagnosis / Problem: blighted ovum Discharge Goals Goal(s): Therapeutic intervention Activity Recommendations Activity Limitations: per Instructions/Follow-up section Anesthesia . Post Anesthesia Instructions: If you have had General Anesthesia or IV Sedation: * Do not drive today. * Resume driving when surgeon permits. * Do not make important decisions or sign legal documents today. * Call surgeon for: 1. Temperature elevations greater than 101 degrees F. 2. Uncontrollable pain. 3. Excessive bleeding. 4. Persistent nausea and vomiting. 5. Medication intolerance (nausea, vomiting or rash). * For nausea and vomiting use only clear liquids such as: tea, soda, bouillon until nausea subsides, then gradually increase diet as tolerated. * If you have any concerns or questions, call your surgeon's office. If physician is unavailable and it is an emergency, call 911 or go to the nearest emergency room. . Instructions / Follow-Up Instructions / Follow-Up ACTIVITY RECOMMENDATIONS: * Avoid tampons, douching, hot tubs, pools, and intercourse until bleeding has stopped. * May shower as usual. * No strenuous activity for 24-48 hours. After 24-48 hours, you may do anything you feel like doing (driving and sports are okay). SPECIAL CARE INSTRUCTIONS: Special Diet: * Mild nausea may occur in the immediate post-operative period. * Take clear liquids such as tea, cola or bouillon until all nausea has subsided; you may then resume your normal diet. Special Care: * Light bleeding and vaginal spotting can last from a few days to 3-4 weeks. Call your doctor if bleeding becomes heavier than the heaviest part of your period. * Check your temperature twice a day for one week. If it goes above 100.4 degrees Fahrenheit (38.0 Celsius), notify your doctor. * Call your doctor's office for an appointment for 6 weeks after your surgery. FOLLOW-UP VISIT: Call your doctor's office for an appointment for 6 weeks after your surgery. Diet Recommendations Recommended Home Diet: resume previous diet Procedures Procedures Performed: Dilation and Evacuation Pending Studies Studies pending at discharge: no Medical Emergencies . Who to Call and When: Medical Emergencies: If at any time you feel your situation is an emergency, please call 911 immediately. . Non-Emergent Contact Non-Emergency issues call your: Primary Care Provider, Loom Tuner . . "Provider Documentation" section prepared by Maria Del Rosario Nesbitt.
--- NOTE | 2016-05-23 21:09 | [facility] Post Operative Brief Note ---
Immediate Operative Summary Operative Date May 23, 2016. Pre-Operative Diagnosis Blighted Ovum Post-Operative Diagnosis Same as preop Procedure(s) Performed Dilation and Evacuation Surgeon Dr. Nesbitt Estimated Blood Loss 50ml Findings Uterus with os dilated to 1cm. Small amount of uterine contents evacuated. Specimens A. Products of Conception Drains bladder emptied prior to procedure Anesthesia general Complication(s) None Disposition Recovery Room / PACU
--- NOTE | 2016-05-24 00:31 | OPERATIVE REPORT ---
DATE OF OPERATION: 05/23/2016 PREOPERATIVE DIAGNOSIS: Blighted ovum. POSTOPERATIVE DIAGNOSIS: Same. PROCEDURE: Dilation and evacuation. SURGEON: Maria Del Rosario Nesbitt DO ESTIMATED BLOOD LOSS: 50 mL. FINDINGS: Uterus with the os dilated to 1 cm, small amount of uterine contents evacuated. SPECIMENS: Products of conception. DRAINS: Bladder emptied prior to procedure. ANESTHESIA: General. COMPLICATIONS: None. DISPOSITION: Recovery room in stable and good condition. INDICATIONS FOR PROCEDURE: The patient is a 30-year-old G3, P1-0-1-1 at 7 weeks 6 days by last menstrual period. She has had 3 ultrasounds, all showing a gestational sac with no pole. Additionally, her beta hCG dropped over a 48-hour period. She was counseled in the office by Dr. Walton and given the option to proceed with watchful waiting or trying medication induction or undergo surgery. She elected to proceed with surgery. DESCRIPTION OF PROCEDURE: The patient was seen in her room in the hospital. All risks, benefits, alternatives to surgery were reviewed. She elected to proceed with the surgery. Informed consent was obtained. All questions were answered. She was taken to the operating room where she was prepared and draped in the usual sterile fashion under general anesthesia. A weighted speculum was placed in the vagina. Cervix was visualized and the anterior lip was grasped with a single tooth tenaculum. The cervix was gently dilated to admit an 8 mm suction curette curved tip. The suction curette was used to evacuate the contents of the uterus with multiple passes. Following the suction portion of the curettage, a gentle sweep was made with a sharp curette, all of this tissue was sent to pathology for further evaluation. Excellent hemostasis was achieved at the conclusion of the case, all instruments were removed from the vagina. The patient was awoken from anesthesia and taken to the recovery room in stable and good condition. She will receive 200 mg of doxycycline postoperatively and a prescription for Flagyl 500 mg twice daily x5 days. I attest to the content of the Intraoperative Record and any orders documented therein. Any exceptio ns are noted below.
--- NOTE | 2016-06-06 11:06 | DISCHARGE SUMMARY ---
DATE OF SURGERY: 05/23/2016. ADMISSION DIAGNOSIS: Blighted ovum. DISCHARGE DIAGNOSIS: Same. PROCEDURE PERFORMED: Dilation and evacuation under general anesthesia. COURSE OF STAY: The patient is a 30-year-old G3, P1-0-1-1 who at 7 weeks 6 days by last menstrual period, was found to have gestational sac with no pole. This was confirmed by ultrasound x3. Additionally, her beta hCG was dropping over a 48-hour period. She was admitted from the office to the hospital for surgical treatment. The above noted procedure was performed. The patient's postoperative course was uneventful and she was discharged to home on 05/23/2016. Follow up in the office in 2 weeks. DIET: Regular. ACTIVITY: Pelvic rest. MEDICATIONS: Motrin. CONDITION ON DISCHARGE: Stable and good.
[2016-06-28] MEDS ORDERED: OXYC-57 PO (16:18)
== END 2016-05-23 22:05 | disposition home or self-care (01) ==
LOC: C.MS4N 12:17
PROVIDERS: ADMIT Obstetrics & Gynecology; ATTEND Obstetrics & Gynecology
DX: O02.0 Blighted ovum and nonhydatidiform mole (principal); Z83.3 Family history of diabetes mellitus; Z82.49 Family history of ischemic heart disease and other diseases of the circulatory system

== ENCOUNTER 2016-06-07 07:54 | Emergency (ER) | payer BC ==
[~2016-06-07] VITALS: Ht 162.6 cm; Wt 100.7 kg
[2016-06-07 08:07] VITALS: Ht 162.6 cm; Wt 100.7 kg
[2016-06-07] MEDS ORDERED: ONDANSETRON INJ 2 MG/ML 2 ML VIAL IV STA (08:53)
[2016-06-07] MEDS ORDERED: MoRPHine SULFATE 10 MG/ML CARP/VIAL IV STA (08:53)
[2016-06-07] MEDS ORDERED: SODIUM CHLORIDE 0.9% 1000ML 1,000 ML IV ONE (09:00)
[2016-06-07] MEDS ORDERED: IBUP-1050 PO (09:14)
[2016-06-07 09:53] VITALS: TEMP 37.2
--- NOTE | 2016-06-07 09:56 | DIAGNOSTIC IMAGING REPORT ---
LEFT HIP UNILATERAL 2 VIEWS CLINICAL HISTORY: Left hip pain. Leg numbness. No known injury. COMPARISON: CT of the abdomen and pelvis May 17, 2008. FINDINGS: Alignment of the left hip is anatomic. There is no fracture or suspicious lesion. Left hip joint space is preserved. There is minimal osteophytosis. There is no evidence for avascular necrosis. IMPRESSION: 1. No acute fracture or dislocation of the left hip. 2. Minimal osteophytosis of the left hip with preserved joint space. Electronically signed by: Henrry Rothman M.D. 06/07/2016 9:54 AM Dictated Date/Time: 06/07/2016 9:53 AM
[2016-06-07] MEDS ORDERED: MoRPHine SULFATE 4 MG/ML 1 ML CARP\\VIAL IV STA (09:58)
--- NOTE | 2016-06-07 10:08 | DIAGNOSTIC IMAGING REPORT ---
CT OF THE LUMBAR SPINE WITHOUT CONTRAST CT DOSE: 687.88 mGycm CLINICAL HISTORY: Lumbar pain with left hip and leg pain. No recent trauma. TECHNIQUE: Axial images of the lumbar spine were obtained without IV contrast. Sagittal and coronal reconstructions were viewed. COMPARISON STUDY: None. FINDINGS: For purposes of numbering on this exam, the L5-S1 disc space is assigned to axial image 294 of 338. Alignment of lumbar spine is anatomic. Vertebral body heights are maintained. There is no acute fracture or suspicious lesion by CT. Paravertebral soft tissues are unremarkable. Central canal and neural foramen are suboptimally assessed by CT. There is no intracanalicular mass or fluid collection by CT. There is mild disc space narrowing at L5-S1. There is a suspected mild disc bulge at the L4-L5 level. This likely results in mild narrowing of the central canal. At L5-S1, there is a suspected large left paracentral disc protrusion. This results in moderate to marked narrowing of the left aspect of the canal and left lateral recess. There is moderate narrowing of the left neural foramen as well as suspected moderate during of the right neural foramen at this level. There is mild facet arthrosis at multiple levels within the lumbar spine. IMPRESSION: 1. No acute lumbar spine fracture or subluxation. 2. Suboptimal evaluation of the central canal and neural foramen given CT technique. 3. Suspected large left paracentral disc protrusion at L5-S1 that results in moderate to marked narrowing of the left aspect of the canal and left lateral recess. A nonemergent MRI of the lumbar spine could be performed for confirmation. 4. Mild disc bulge at the L4-L5 level. Electronically signed by: Henrry Rothman M.D. 06/07/2016 10:06 AM Dictated Date/Time: 06/07/2016 9:56 AM
[2016-06-07] MEDS ORDERED: METH4PAK PO (10:36)
[2016-06-07] MEDS ORDERED: OXYC-57 PO (10:36)
[2016-06-07 10:55] VITALS: BP 117/70; PULSE 73; O2SAT 100
--- NOTE | 2016-06-09 12:42 | EMERGENCY ROOM VISIT NOTE ---
ED Visit Note First contact with patient: 08:43 Chief Complaint: Left hip pain. History of Present Illness: Ms. Montanez is a 30-year-old white female who ambulates into the ED complaining of left hip pain and left leg weakness and numbness. Patient reports her symptoms started 3 weeks ago and has been constant but worsening in intensity. She was seen by PCP and this was felt to be related to her at that time; uterus tilted on a nerve, she was 5 weeks at that time. At approximately one week later she miscarried and had a D&C but the pain persisted. Over the last 24 hours pain has dramatically increased. Currently she complains of pain over the lateral aspect of the left hip joint. She describes it as a severe pressure sensation. She rates her discomfort 10/ 10. Her pain then goes down the leg, around the thigh to the level of the ankle. Her pain worsens with palpation and all movements of the hip, knee, weightbearing and ambulation. She has not identified any alleviating factors related to the pain. She has been using [id number] medications without relief of her discomfort. Associated with her pain she receives a sense of tingling in the feet and weakness while ambulating. She denies fevers, chills, sweats, skin eruptions, skin color changes, abdominal pain, nausea, vomiting, diarrhea, constipation, rectal bleeding, black/tarry stools, urinary symptoms, hematuria, flank pain, rectal/genital paresthesias, bowel and bladder dysfunction, recent trauma, repetitive trauma, previous significant injuries or surgeries, lumbar back pain, lumbar diseases, cancer, IV drug use. Review of Systems: As noted above in history of present illness. All body systems were reviewed and found to be negative as noted above. Past Medical History: Status post thyroidectomy, cholecystectomy the ice. Current Medications: Levothyroxine, ibuprofen. Allergies to Medications: Patient denies. Social History: Patient is currently employed; she lives with her and daughter and feels safe in her home environment; she denies tobacco and alcohol use. Physical Examination: Vital Signs: Date Time Temp Pulse Resp B/P Pulse Ox O2 Delivery O2 Flow Rate FiO2 06/07/16 10:55 73 18 117/70 100 06/07/16 09:53 37.2 67 18 117/80 100 Room Air 06/07/16 08:07 36.7 93 18 114/80 98 Room Air GENERAL: 30-year-old female in moderate distress due to pain, nontoxic-appearing , afebrile and hemodynamically stable. NEUROLOGICAL: Awake, alert and oriented to person, place and time. Answering questions appropriately and following commands. SKIN: Warm, dry and pink. No soft tissue eruptions or trauma noted. HEENT: Atraumatic and normocephalic. PERRLA. Sclera white and conjunctiva pink. No drainage from naris. Oral cavity moist and pink. Pharynx is nonerythematous or edematous. Speech normal. No lymphadenopathy. Trachea midline. No jugular venous distention. BACK: No tenderness over the bony cervical and thoracic spine. No CVA tenderness. Mild tenderness over the left side of the L4-S1 area without bony deformity, step-offs, bony crepitus or ecchymosis. There is no tenderness throughout the paraspinous muscles in the lumbar spine. No palpable spasm. Positive straight leg raise test on the left at 30. THORAX: Lungs sounds are clear to auscultation and equal bilaterally with symmetrical chest wall. No wheezing, rales or rhonchi. No crepitus, tenderness , subcutaneous air or deformities noted. HEART: Regular rate and rhythm. No gallops, rubs or murmurs are appreciated. ABDOMEN: Flat, soft and nontender. Positive bowel sounds in all quadrants. No guarding, rigidity or organomegaly. LOWER EXTREMITIES: No gross bony deformity. No shortening or malrotation. Mild tenderness over the left greater trochanter without swelling, bony deformity, bony crepitus or ecchymosis. Decreased range of motion and muscle strength due to pain. No tenderness throughout the thigh, knee, lower leg, ankle or foot. 2+ patellar and Achilles deep tendon reflexes intact and equal bilaterally. 5/5 muscle strength in all movements of the hip, knee and ankle on the right and 4/5 in hip abduction, knee extension and dorsiflexion. She was able to distinguish light sensations through all dermatomes of the lower legs and feet. ED Course: Patient is assessed as noted above. Left Hip X-Rays: Were read by myself and the radiologist showing no acute fractures or dislocations. Minimal osteophytosis with joint space preservation. No signs of avascular necrosis. Lumbar Spine CT: Was reviewed by myself and read by the radiologist showing no acute spinal fracture or subluxation. Large left paracentral disc protrusion at L5-S1 resulting in moderate to marked narrowing of the left aspect of the canal and left lateral recess. Mild disc bulging at the L4-L5 level. Patient was hydrated with normal saline and received a total of 10 mg of morphine IV for pain and 4 mg of Zofran IV. Patient was reassessed multiple times during her stay in the emergency department. Patient's case was reviewed with Dr. Shin; we agreed on diagnostic approach, treatment, disposition and plan. Patient was educated about tonight's findings and instructed on her treatment plan; she verbalized understanding and agreement with this plan. Clinical Impression: Lumbar back pain with radiculopathy affecting the left lower extremity. Decision-Making: Initially my differential diagnosis I considered hip fracture, hip dislocation, avascular necrosis, hip arthritis, herniated disc, cauda equina syndrome, spinal abscess and other causes. Disposition: Patient discharged home in stable condition; prior to departure she was reassessed and subjectively reported she was feeling much better and rated her discomfort 5/10. Plan: Comfort measures were discussed with the patient including ice, rest, proper lifting and moving techniques and a sliding pain medication scale of ibuprofen, acetaminophen and Percocet; appropriate narcotic precautions were discussed with the patient. Patient was prescribed a Medrol Dosepak and instructed on its use. Patient was encouraged to keep her upcoming appointment with her primary care provider for follow-up care and treatment and possible outpatient MRI. Patient was encouraged return the ED for uncontrolled pain, fevers, leg weakness , worsening numbness sensation, rectal/genital paresthesias, bowel and bladder dysfunction, fevers or any new/concerning symptoms.
[2016-06-28] MEDS ORDERED: OXYC-57 PO (16:18)
== END 2016-06-07 10:56 | disposition home or self-care (01) ==
LOC: C.EDB 07:56 → C.EDA 10:56
DX: M54.5 Low back pain (principal); M54.16 Radiculopathy, lumbar region; M25.552 Pain in left hip

== ENCOUNTER → 2016-06-24 | Outpatient (CLI) | payer BC ==
[~2016-06-24] MED LIST changes: +IBUP-1050 PO; +PRENTAB26 PO; -PRENTAB65 PO
--- NOTE | 2016-06-24 10:02 | DIAGNOSTIC IMAGING REPORT ---
LUMBAR SPINE MRI HISTORY: Low back pain. DISC HERNIATION TECHNIQUE: Multiplanar multisequence MRI of the lumbar spine was performed without the use of contrast. COMPARISON: Lumbar spine CT 06/07/2016. FINDINGS: For the purpose of the report the L5-S1 disc space will be located on axial image . Alignment and curvature intact. No fracture or subluxation. The conus terminus at the L1-L2 disc space level. Visualized retroperitoneal soft tissues are unremarkable. Mild disc space area L5-S1. Disc desiccation at L4-L5 and L5-S1. L1-L2: Tiny right paracentral focal disc protrusion without central canal or neural foraminal narrowing. L2-L3: No significant central canal or neural foraminal narrowing. L3-L4: No significant central canal or neural foraminal narrowing. L4-L5: Small focal central disc protrusion demonstrating mild inferior subligamentous migration. No significant central canal or neural foraminal narrowing. L5-S1: Large left paracentral disc extrusion measuring 16 x 9 mm. This compresses the transiting left S1 nerve root. This also results in moderate left-sided central canal narrowing. There is mild bilateral neural foraminal narrowing. IMPRESSION: 1. Large left paracentral disc extrusion at L5-S1 resulting in compression of the transiting left S1 nerve root. 2. Small focal central disc protrusion at L4-L5 without significant central canal or neural foraminal narrowing. 3. Tiny right paracentral focal disc protrusion at L1-L2 without central canal or neural foraminal narrowing. Electronically signed by: Jay Parekh M.D. 06/24/2016 10:01 AM Dictated Date/Time: 06/24/2016 9:42 AM
== END | disposition home or self-care (01) ==
LOC: C.MRI 08:05
PROVIDERS: ATTEND Orthopaedic Surgery Orthopaedic Surgery of the Spine
DX: M51.26 Other intervertebral disc displacement, lumbar region (principal)

== ENCOUNTER → 2016-06-28 | Outpatient (CLI) | payer BC ==
[2016-06-28 17:08] LABS: BASO % 0.4 %; BASO ABS # 0.02 K/uL (0-0.2); COMPLETE YES; EOS % 1.6 %; HEMATOCRIT 36.1 % (37-47); IG% 0.2 %; LYMPH % 34.4 %; LYMPH ABS # 1.74 K/uL (1.2-3.4); MEAN CORPUSCULAR HEMOGLOBIN 29.8 pg (25-34); MEAN CORPUSCULAR HGB CONC 33.8 g/dl (32-36); MEAN PLATELET VOLUME 9.8 fL (7.4-10.4); MONO % 10.5 %; NEUT % 52.9 %; PLATELET COUNT 313 K/uL (130-400); WHITE BLOOD COUNT 5.06 K/uL (4.8-10.8)
[2016-06-28 18:07] LABS: PREG INTERNAL NEGATIVE QC NEG CLEAR BACKGROUND; PREG INTERNAL POSITIVE QC POS CONTROL LINE
== END | disposition home or self-care (01) ==
LOC: C.LABBC 15:08
PROVIDERS: ATTEND Orthopaedic Surgery Orthopaedic Surgery of the Spine
DX: Z01.812 Encounter for preprocedural laboratory examination (principal)

== ENCOUNTER 2016-06-30 12:06 | Observation (INO) | payer BC ==
[2016-06-28 16:18] VITALS: BMI 36.0
--- NOTE | 2016-06-29 11:37 | HISTORY & PHYSICAL EXAMINATION ---
DATE OF ADMISSION: 06/30/2016 CHIEF COMPLAINT: Back and lower extremity difficulty. She has a large disc herniation at L5-S1 lumbar spine. She has failed conservative care. She is miserable, really cannot get comfortable except for supine with her leg up. Fortunately, she has no bowel or bladder incontinence. MEDICAL HISTORY: Negative for kidney disease, carcinoma, anesthesia difficulties. No rheumatoid arthritis. No acid reflux. No hypertension, COPD, asthma. SURGICAL HISTORY: Thyroidectomy, cholecystectomy. ALLERGIES: Negative. MEDICATIONS: Synthroid and Percocet. REVIEW OF SYSTEMS: Denies any blurred vision, double vision, tinnitus, vertigo. Denies chest pain, palpitations, angina. No asthma, wheezing, shortness of breath. No nausea, vomiting, urgency, frequency, dysuria. Major complaint is musculoskeletal back and lower extremity difficulties. OBJECTIVE: VITAL SIGNS: Blood pressure 130/80, pulse of 80, respiratory rate 16, temperature 97.4. HEENT: Pupils react to light and accommodation. Ear, nose and throat clear. CARDIAC: Normal S1 and S2. No S3. LUNGS: Clear to auscultation. No rales, no rhonchi, no wheezing. BACK AND EXTREMITIES: She has pain with straight leg raising. She has pain with flexion and extension. She has weakness of her Achilles reflex, loss of sensation as well on the left hand side. IMPRESSION: Large disc herniation L5-S1 left. DISPOSITION: Includes fairly urgent surgery tomorrow which is 06/30/2016 at [facility] at 1:00 p.m.
[2016-06-30] VITALS (7 sets, daily range): BP systolic 96–119; BP diastolic 53–75; PULSE 84–99; TEMP 36.5–37; O2SAT 91–99; Ht 162.6 cm; Wt 94.5 kg
[~2016-06-30] VITALS: Ht 162.6 cm; Wt 94.5 kg
[~2016-06-30 12:06] MED LIST changes: +ATROPINE SULFATE 0.1 MG/ML 5ML SYR IV PRN; +CEFAZOLIN 2000 MG/60 ML D5W IV SCH; +EpHEDrine SULFATE INJ 50 MG/ML AMP IV PRN; +FENTANYL CITRATE INJ 50 MCG/1 ML 2 ML VIAL IV PRN; +HYDROmorphone INJ 1 MG/ML SYR IV PRN; +LACTATED RINGER'S 1000ML 1,000 ML IV SCH; +ONDANSETRON INJ 2 MG/ML 2 ML VIAL IV PRN; -PRENTAB26 PO; +SODIUM CHLORIDE 0.9% 1000ML 1,000 ML IV SCH
[2016-06-30 13:21] LABS: PREG INTERNAL NEGATIVE QC NEG CLEAR BACKGROUND; PREG INTERNAL POSITIVE QC POS CONTROL LINE
[2016-06-30] MEDS ORDERED: MIDAZOLAM HCL 1 MG/ML 2ML VIAL ONE (13:50)
[2016-06-30] MEDS ORDERED: FENTANYL CITRATE INJ 50 MCG/1 ML 2 ML VIAL ONE ×4 (13:50→15:46)
--- NOTE | 2016-06-30 13:52 | History & Physical Bridge Note ---
H&P Re-Evaluation Bridge Note: I have examined the patient, reviewed the History & Physical and in the interval since the performance of the History & Physical I have noted the following changes of clinical significance: Procedure: Disectomy L5-S1
[2016-06-30] MEDS ORDERED: GELATIN SPONGE SZ 100 ONE (13:58)
[2016-06-30] MEDS ORDERED: THROMBIN FOR SOLN 20000 UNIT KIT ONE (13:59)
[2016-06-30] MEDS ORDERED: BUPIVACAINE/EPINEPHRINE 0.5% MPF 1:200,000 30 ML VIAL ONE (13:59)
[2016-06-30] MEDS ORDERED: VANCOMYCIN HCL 1000MG/20ML VIAL ONE (13:59)
[2016-06-30] MEDS ORDERED: BACITRACIN 50000 UNIT VIAL ONE (13:59)
[2016-06-30] MEDS ORDERED: ROCURONIUM BROMIDE 10 MG/ML 5 ML VIAL ONE (14:27)
[2016-06-30] MEDS ORDERED: LIDOCAINE HCL 2% 2 ML VIAL (20MG/ML) ONE (14:27)
[2016-06-30] MEDS ORDERED: PROPOFOL IV EMULSION 10 MG/ML 20 ML VIAL IV ONE (14:27)
[2016-06-30] MEDS ORDERED: DEXAMETHASONE SOD INJ 4 MG/ML VIAL ONE (14:27)
[2016-06-30] MEDS ORDERED: GLYCOPYRROLATE INJ 0.2 MG/ML VIAL ONE (14:35)
[2016-06-30] MEDS ORDERED: ONDANSETRON INJ 2 MG/ML 2 ML VIAL ONE ×2 (14:35)
[2016-06-30] MEDS ORDERED: NEOSTIGMINE METHYLSULFATE 1 MG/ML 10ML VIAL ONE (14:35)
[2016-06-30] MEDS ORDERED: LORAZEPAM INJ 1 MG in SYRINGE 0 ML IV PRN (15:45)
[2016-06-30] MEDS ORDERED: ACETAMINOPHEN 325 MG TAB PO PRN (15:45)
[2016-06-30] MEDS ORDERED: ONDANSETRON INJ 2 MG/ML 2 ML VIAL IV PRN (15:45)
[2016-06-30] MEDS ORDERED: IBUPROFEN 200 MG TAB PO PRN (15:45)
[2016-06-30] MEDS ORDERED: HYDROmorphone INJ 1 MG/ML SYR IV PRN ×2 (15:45→16:30)
[2016-06-30] MEDS ORDERED: OXYCODONE/ACETAMINOPHEN 5-325 TAB PO PRN (15:45)
[2016-06-30] MEDS ORDERED: MAGNESIUM HYDROXIDE SUSP 30 ML UDC PO PRN (15:45)
[2016-06-30] MEDS ORDERED: LORAZEPAM 1 MG TAB PO PRN ×2 (15:45→20:30)
[2016-06-30] MEDS ORDERED: PROMETHAZINE HCL INJ 12.5 MG in SODIUM CHLORIDE 0.9% 50ML 50 ML IV PRN (15:45)
[2016-06-30] MEDS ORDERED: METOCLOPRAMIDE HCL INJ 5 MG/ML 2 ML VIAL IV PRN (15:45)
[2016-06-30] MEDS ORDERED: HYDROmorphone INJ 2 MG/ML SYR/VIAL IV PRN (15:45)
[2016-06-30] MEDS ORDERED: LORAZEPAM INJ 1 MG in SYRINGE 0.5 ML IV PRN (15:45)
[2016-06-30] MEDS ORDERED: HYDROmorphone INJ 1 MG/ML SYR ONE ×2 (15:46→16:06)
--- NOTE | 2016-06-30 15:46 | [facility] Post Operative Brief Note ---
Immediate Operative Summary Operative Date Jun 30, 2016. Pre-Operative Diagnosis Large Disc Herniation L5-S1 Post-Operative Diagnosis Large Disc Herniation L5-S1 Procedure(s) Performed L5-S1 Discectomy Surgeon Dr. Marko Pedraza Test Architect Surgeon(s) Eligio Penny PA-C Estimated Blood Loss 48mL Findings large disc herniation Specimens none per surgeon Dr. Marko Pedraza Complication(s) None Disposition Recovery Room / PACU
[2016-06-30 16:20] LABS: HEMATOCRIT 32.7 % (37-47)
--- NOTE | 2016-06-30 16:20 | DIAGNOSTIC IMAGING REPORT ---
INTRAOPERATIVE RADIOGRAPH CLINICAL HISTORY: L5-S1 discectomy. Fluoroscopy time: 1 seconds. FINDINGS: A single spot fluoroscopic view of the lower lumbar spine is presented. Surgical implants projecting posteriorly at the level of S1. IMPRESSION: Intraoperative image from L5 -S1 discectomy as above. Electronically signed by: Patrick Ta M.D. 06/30/2016 4:19 PM Dictated Date/Time: 06/30/2016 4:18 PM
[2016-06-30] MEDS ORDERED: ACETAMINOPHEN 1000 MG/100 ML IV IV ONE ×2 (16:21→16:30)
[2016-06-30] MEDS ORDERED: HYDROmorphone INJ 2 MG/ML SYR/VIAL ONE (16:21)
[2016-06-30] MEDS ORDERED: IV FLUIDS COMPLETED PRN (16:30)
[2016-06-30] MEDS ORDERED: KETOROLAC TROMETHAMINE 30 MG/ML VIAL ONE (16:41)
--- NOTE | 2016-06-30 16:58 | Anesthesiology Progress Note ---
Anesthesia Post Op Note Date & Time Jun 30, 2016 at 16:58 Vital Signs Pain Intensity: 7 Vital Signs Past 12 Hours Date Time Temp Pulse Resp B/P Pulse Ox O2 Delivery O2 Flow Rate FiO2 06/30/16 16:45 88 16 97/68 98 Nasal Cannula 2 06/30/16 16:35 86 16 109/61 98 Nasal Cannula 2 06/30/16 16:25 93 16 99/71 99 Nasal Cannula 2 06/30/16 16:15 102 16 111/52 99 Nasal Cannula 2 06/30/16 16:05 92 16 116/73 100 Mask 10 06/30/16 15:55 100 16 95/69 100 Mask 10 06/30/16 15:48 37.2 93 16 109/64 100 Mask 10 06/30/16 12:35 36.7 94 20 119/70 97 Room Air Notes Mental Status: alert / awake / arousable, participated in evaluation Pt Amnestic to Procedure: Yes Nausea / Vomiting: adequately controlled Pain: improving with treatment Airway Patency, RR, SpO2: stable & adequate BP & HR: stable & adequate Hydration State: stable & adequate Anesthetic Complications: no major complications apparent Pain now rated 5/10 in intensity and improving after fentanyl, dilaudid, toradol and IV tylenol. Denies nausea. Will be ok for transfer to the floor.
--- NOTE | 2016-06-30 17:04 | OPERATIVE REPORT ---
DATE OF OPERATION: 06/30/2016 PREOPERATIVE DIAGNOSIS: Large disk herniation L5-S1. POSTOPERATIVE DIAGNOSIS: Same. PROCEDURE: Include lumbar spine discectomy L5-S1. SURGEON: Dr. Pedraza. SOFA INSPECTOR: Eligio Penny PA-C. COMPLICATIONS: Zero. BLOOD LOSS: 48 mL. ANESTHETIC: General. DESCRIPTION OF PROCEDURE: The patient was taken to the main operating room and general intubated anesthetic provided to the patient, placed prone, prepped and draped sterile. We made a skin incision from L5 to the sacrum dissecting the soft tissue, putting a deep self-retaining retractor over the facet joints. We did a left-sided laminectomy at L5-S1, foraminotomy, partial facetectomy. We protected all vascular and bony structures and ligamentous structures. We took off the ligamentum flavum, we retracted the dura in a medial direction. After the foraminotomy was completed, I used a 15 scalpel blade, we made an incision to the disc, we took out considerable amount of disc material with a straight and up and downbiting pituitary rongeur micro and regular. I was pleased with the decompression. We then accentuated the foraminotomy, irrigated thoroughly, closed over vancomycin powder with 1-0 Vicryl, 2-0 and 3-0 nylon on the skin, sterile dressing applied. I also used a Hemovac drain deep to the wound. I also used a small fat graft over the dura. The patient tolerated it well, extubated to PACU stable. No apparent anesthesia or surgical complications. Sponge and needle count correct at the close. I attest to the content of the Intraoperative Record and any orders documented therein. Any exceptio ns are noted below.
[2016-06-30] MEDS ORDERED: INSULIN ASPART 100 UNITS/ML 3 ML PEN SC SCH (17:15)
[2016-06-30] MEDS ORDERED: KETOROLAC TROMETHAMINE 30 MG/ML VIAL IV SCH ×2 (18:00)
[2016-06-30] MEDS: OXYCODONE/ACETAMINOPHEN 5-325 TAB PO PRN ×2 (18:25→22:53)
[2016-06-30] MEDS: SODIUM CHLORIDE 0.9% 1000ML 1,000 ML IV SCH (18:26)
[2016-06-30] MEDS ORDERED: NURSING VERBAL MED ORDER ONE (20:30)
[2016-06-30] MEDS: DEXAMETHASONE INJ 10 MG in SYRINGE 0 ML IV SCH (21:51)
[2016-06-30] MEDS: KETOROLAC TROMETHAMINE 30 MG/ML VIAL IV SCH (21:52)
[2016-06-30] MEDS: CEFAZOLIN IV 2,000 MG in DEXTROSE 5% 50ML 50 ML IV SCH (21:58)
[2016-07-01] MEDS: DEXAMETHASONE INJ 10 MG in SYRINGE 0 ML IV SCH ×2 (03:36→11:23)
[2016-07-01] MEDS: KETOROLAC TROMETHAMINE 30 MG/ML VIAL IV SCH ×2 (03:37→09:42)
[2016-07-01 03:55] VITALS: BP 92/57; PULSE 68; TEMP 36.9; O2SAT 91
[2016-07-01] MEDS: CEFAZOLIN IV 2,000 MG in DEXTROSE 5% 50ML 50 ML IV SCH ×2 (05:35→13:34)
[2016-07-01] MEDS: OXYCODONE/ACETAMINOPHEN 5-325 TAB PO PRN ×2 (05:37→09:47)
[2016-07-01] MEDS ORDERED: BISACODYL 10 MG SUPP PR PRN (06:00)
[2016-07-01] MEDS ORDERED: BISACODYL 5 MG TABEC PO PRN (06:00)
[2016-07-01] MEDS ORDERED: LEVOTHYROXINE 25 MCG TAB PO SCH (06:00)
[2016-07-01] MEDS ORDERED: LEVOTHYROXINE 200 MCG TAB PO SCH (06:00)
[2016-07-01] MEDS: SODIUM CHLORIDE 0.9% 1000ML 1,000 ML IV SCH (06:26)
[2016-07-01 07:15] VITALS: BP 91/56; PULSE 66; TEMP 36.8; O2SAT 94
--- NOTE | 2016-07-01 07:42 | Discharge Instructions ---
Discharge Instructions Date of Service Jul 01, 2016. Admission Reason for Admission: Disc Herniation Discharge Discharge Diagnosis / Problem: spine surgery Discharge Goals Goal(s): Improve function Activity Recommendations Activity Limitations: as noted below Lifting Limitations: until after follow-up appointment Exercise/Sports Limitations: until after follow-up appointment May Resume Sexual Activity: after follow-up appointment Shower/Bathe: keep incision dry Driving or Machine Use: home, rest, recover . Instructions / Follow-Up Instructions / Follow-Up MEDICATIONS: Please take your prescriptions as instructed at your pre-op appointment. SPECIAL CARE: The following information is intended to answer some of the common questions and concerns regarding your surgery. Each patient is an individual and receives individual counselling throughout the course of treatment, from diagnosis to surgery all the way through recovery. What follows is not an exhaustive list, but should be a useful guide to some of the common questions and concerns patients have regarding their surgeries. These are not provided to keep you from calling us; rather, they give you something accurate and concrete to reference as you recover from your procedure. If you need us, we are available to you. As always, if you are not sure about something, call us at [phone]. MEDICAL EMERGENCIES: For these conditions, call 911 or go to your local hospital-based Emergency Department - not [facility] or equivalent. * Paralysis * Severe chest pain or difficulty breathing * Swelling or redness of either leg Spine procedures can be rather complex and though complications are rare, they do occur. In such cases, effective advice regarding emergency situations cannot always be addressed over the telephone. You may be referred to the emergency department for more effective management of your problem. Activity Limitations: It is important to give your body time to heal, so please limit your activities : * In general, don't do anything that moves your spine too much. You should avoid contact sports, twisting or heavy lifting while you recover. * 5-10 pounds is all you should attempt to lift. * You should not plan on driving for approximately 3 weeks and you should avoid traveling more than 30-45 minutes at a time. Longer trips should be broken down with walking breaks spaced appropriately. * Physical therapy is not usually required. * Walking and good posture practices will help you recover and regain your function. * Avoid straining or sudden changes in position. * In general, the goal is to take it easy and recover. Don't cause any new problems. Just relax. Showers: * Do not take a bath, use a Jacuzzi or hot tub or otherwise submerge your incision. * It is usually safe to take a shower 4-5 days after your surgery. * Your incision does not require any special creams or ointments. * Simply clean it with soap and water, dry and re-dress with a clean bandage afterwards. Incision: * Keep incision clean, dry and protected until your first follow-up appointment. * Some amount of drainage and redness is normal. Any drainage should be fairly clear and not have a foul odor. * If you feel anything is wrong or you have excessive drainage, please call us. * Your stitches and davie will be removed 10-14 days after your surgery. At the time of your first post-op visit. * Neck surgeries are typically closed with a suture underneath the skin. The steri-strips over the incision should be maintained until we see you in the office. Bracing: * You may be provided with a back or neck brace to encourage good posture and prevent injury. It will remind you not to do too much as you heal and will alert others to the fact that you have had a surgery. * Back braces may be removed for showers and when you are resting at home. They must be worn when you are walking around for any period of time or for travel. * For neck surgery, you will likely be provided with two cervical collars. The soft collar ([place] or foam rubber) is worn most commonly throughout the day and while sleeping. The plastic collar (provided at the hospital) is for showering/bathing. * Except while eating, collars should remain in place. More specifically, bracing is provided for a purpose and should be worn. * Please obtain your brace or collars prior to your operation and bring them to the hospital with you on the day of surgery. * You should also bring your collars to your post-op appointment with Dr. Pedraza. You should always take good care of your body and practice healthy habits, especially following surgery. You should: * Follow your doctor's treatment plan * Sit and stand properly with good posture (ears over shoulders, shoulders over hips) Don't slouch * Learn to lift correctly * Exercise regularly (low-impact aerobic exercise is especially good, but check with your doctor first) * Generally, be up and walking for 5-10 minutes at a time at least 3-4 times per day from the day you get home * Increasing walking to tolerance until you can walk for 20-30 minutes at a time * Attain and maintain a healthy body weight * Eat healthy foods ( a well-balanced, low-fat diet rich in fruits and vegetables) and get enough calcium * Avoid excessive use of alcohol When to call our office - If you notice any of the following: * Increased pain not relieve by pain medicine * Fevers greater then 100 degrees F, chills or flu symptoms * Increased redness around incision * Drainage from the incision that is not clear * Any foul smelling drainage * Swelling or fluid collection beneath the skin Miscellaneous: * In the hospital, you may be given a walker or cane for support while walking. These are temporary needs and are intended to prevent injuries due to falls. You may discontinue them when you feel strong and steady enough on your feet. * Sleep in a comfortable position. We find that many patients find a lounge chair or recliner with several pillows to be beneficial in the early post-operative period. * The support stockings should be used for 7-10 days and may be discontinued when you are back to walking more and conducting usual household activities. No problem is insignificant. We are here to help you and get you well. Contact us at [phone]. Definitions: Foraminotomy: If part of the disc or a bone spur (osteophyte) is pressing on a nerve as it leaves the vertebra (through an exit called the foramen), a foraminotomy may be done. Otomy means "to make an opening." A foraminotomy is making the opening of the foramen larger, so the nerve can exit without being compressed. Laminotomy: Similar to the foraminotomy, a laminotomy makes a larger opening, this time in your bony plate protecting your spinal canal and spinal cord (the lamina). The lamina may be pressing on your nerve, so the surgeon may make more room for the nerves using a laminotomy. Laminectomy: Sometimes, a laminotomy is not sufficient. The surgeon may need to remove all or part of the lamina. This procedure is called a laminectomy. This can often be done at many levels without any harmful effects. Current Hospital Diet Patient's current hospital diet: Regular Diet Discharge Diet Recommended Diet: Regular Diet Procedures Procedures Performed: L5-S1 Discectomy Pending Studies Studies pending at discharge: no Medical Emergencies . Who to Call and When: Medical Emergencies: If at any time you feel your situation is an emergency, please call 911 immediately. . Non-Emergent Contact Non-Emergency issues call your: Specialist Call Non-Emergent contact if: you have any medication questions . "Provider Documentation" section prepared by Marko Pedraza. VTE Core Measure Inpt VTE Proph given/why not?: Treatment not tolerated
[2016-07-01] MEDS ORDERED: POLYETHYLENE (MIRALAX) 17 GM PACK PO SCH (09:00)
[2016-07-01 11:10] VITALS: BP 118/72; PULSE 112; O2SAT 98
[2016-07-01] MEDS ORDERED: NURSING DECISION MEDICATION ORDER SCH (11:30)
[2016-07-01 12:00] VITALS: BP 95/60; PULSE 74; TEMP 36.6; O2SAT 98
[2016-07-01 14:17] VITALS: BP 95/60; PULSE 74; TEMP 36.6; O2SAT 98
[2016-07-01] MEDS ORDERED: NURSING VERBAL MED ORDER ONE (14:30)
[2016-07-01] MEDS ORDERED: OXYCODONE HCL IR 5 MG TAB (IMMEDIATE RELEASE) ONE (14:33)
[2016-07-01] MEDS ORDERED: OXYCODONE HCL IR 5 MG TAB (IMMEDIATE RELEASE) PO ONE (14:45)
--- NOTE | 2016-07-19 14:09 | DISCHARGE SUMMARY ---
SUBJECTIVE: She is improved, stable date of discharge 07/01/2016. Vital signs stable, alert, oriented. Minimal complaints of pain. Denies chest pain, shortness of breath. ASSESSMENT: Status post discectomy, doing well in the short run with no worrisome issues currently. DISPOSITION: Includes discharge home. Instructions, precautions, education. Keep her wound clean and dry. Follow up in the office in 10 days. Instructions have been provided in great detail along with prescriptions.
== END 2016-07-01 14:45 | disposition home or self-care (01) ==
LOC: ENRESERVTM → ENRESERV → ENRESERVDT → C.ACU 12:06 → C.3E 13:00
PROVIDERS: ADMIT Orthopaedic Surgery Orthopaedic Surgery of the Spine; ATTEND Orthopaedic Surgery Orthopaedic Surgery of the Spine
DX: M51.26 Other intervertebral disc displacement, lumbar region (principal)

== ENCOUNTER 2016-07-23 14:05 | Inpatient (IN) | payer BC ==
[~2016-07-23] VITALS: Ht 160 cm; Wt 91.0 kg
[~2016-07-23 14:05] MED LIST changes: -ATROPINE SULFATE 0.1 MG/ML 5ML SYR IV PRN; -CEFAZOLIN 2000 MG/60 ML D5W IV SCH; -EpHEDrine SULFATE INJ 50 MG/ML AMP IV PRN; -FENTANYL CITRATE INJ 50 MCG/1 ML 2 ML VIAL IV PRN; -HYDROmorphone INJ 1 MG/ML SYR IV PRN; -LACTATED RINGER'S 1000ML 1,000 ML IV SCH; -ONDANSETRON INJ 2 MG/ML 2 ML VIAL IV PRN; -SODIUM CHLORIDE 0.9% 1000ML 1,000 ML IV SCH
[2016-07-23] MEDS ORDERED: SODIUM CHLORIDE 0.9% 1000ML 1,000 ML IV STA (14:44)
[2016-07-23 14:55] LABS: BASO % 0.3 %; BASO ABS # 0.03 K/uL (0-0.2); COMPLETE YES; EOS % 4.7 %; HEMATOCRIT 37.2 % (37-47); IG% 0.1 %; LYMPH % 20.8 %; LYMPH ABS # 1.85 K/uL (1.2-3.4); MEAN CELL VOLUME 87.3 fL (80-100); MEAN CORPUSCULAR HGB CONC 34.4 g/dl (32-36); MEAN PLATELET VOLUME 9.9 fL (7.4-10.4); MONO % 8.9 %; NEUT % 65.2 %; PLATELET COUNT 334 K/uL (130-400); RED BLOOD COUNT 4.26 M/uL (4.2-5.4)
[2016-07-23 15:06] LABS: BUN/CREATININE RATIO 12.3 (10-20); CALCIUM 9.1 mg/dl (8.5-10.1); CREATININE 0.79 mg/dl (0.60-1.20); PARTIAL THROMBOPLASTIN RATIO 1.1; POTASSIUM 3.3 mmol/L (3.5-5.1); PROTHROMBIN TIME (PATIENT) 10.8 SECONDS (9.0-12.0)
[2016-07-23 15:09] LABS: ALB/GLOB RATIO 1.2 (0.9-2)
[2016-07-23] MEDS ORDERED: PRENTAB26 PO (15:21)
--- NOTE | 2016-07-23 16:42 | DIAGNOSTIC IMAGING REPORT ---
MRI OF THE LUMBAR SPINE WITHOUT CONTRAST CLINICAL HISTORY: Low back and left leg pain. Recent spine surgery. COMPARISON STUDY: MRI of the lumbar spine June 24, 2016. TECHNIQUE: Utilizing a 1.5 Shabana magnet and dedicated coil, multiplanar, multiecho imaging of the lumbar spine was performed without IV contrast. FINDINGS: For purposes of numbering on this exam, the L5-S1 disc space is assigned to axial image 27 of 30. There are findings consistent with a left L5-S1 hemilaminectomy. Alignment of lumbar spine is anatomic. Vertebral body heights are maintained. There is no intracanalicular mass or fluid collection. Paravertebral soft tissues are unremarkable. L1-2: Central canal and neural foramen are patent. There is a tiny right paracentral disc protrusion. L2-3: The central canal and neural foramen are patent. L3-4: The central canal and neural foramen are patent. L4-5: There is a central annular tear with a small central disc protrusion. There is no central canal or neural foraminal narrowing. This is unchanged since MRI of June 24, 2016. L5-S1: Interval postoperative findings are noted since MRI of June 24, 2016. Evaluation is suboptimal given the lack of postcontrast imaging. A suspected large left upper central disc protrusion is noted which results in marked narrowing of the left lateral recess with mass effect upon the descending left S1 nerve root. The neural foramen are patent at this level. IMPRESSION: 1. Status post interval left hemilaminectomy at the L5-S1 level. 2. Large left paracentral disc protrusion at L5-S1 which results in marked narrowing of the left lateral recess with mass effect upon the descending left S1 nerve root. 3. No change in a small central disc protrusion and annular tear at L4-L5. Electronically signed by: Henrry Rothman M.D. 07/23/2016 4:40 PM Dictated Date/Time: 07/23/2016 4:33 PM
--- NOTE | 2016-07-23 17:01 | DIAGNOSTIC IMAGING REPORT ---
FIRST TRIMESTER ULTRASOUND CLINICAL HISTORY: 2 wks preg, severe back pain, r/o ectopic COMPARISON STUDY: ultrasound May 21, 2016. TECHNIQUE: Transabdominal and transvaginal sonography of the pelvis was performed. FINDINGS: The uterus measures 8.5 x 5 x 7.4 cm. Endometrium measures 1.1 cm in thickness. There is a tiny cystic structure within the endometrium which measures 0.28 x 0.2 x 0.22 cm for a mean diameter 0.23 cm. This is indeterminate. The right ovary measures 2.6 x 1.8 x 2.4 cm and the left measures 3.6 x 2 x 2.7 cm. There is color flow within each ovary. There is a small amount of fluid within the cul-de-sac. IMPRESSION: 1. Tiny endometrial cystic focus which measures 0.23 cm. This is indeterminate and could reflect a tiny intrauterine gestational sac. Given positive test, differential considerations include a normal early intrauterine gestation, sonographically occult ectopic and missed spontaneous . Close clinical follow-up, including serial beta hCG levels, is recommended. 2. Normal sonographic appearance of the ovaries. 3. Small amount of fluid within the pelvis. Electronically signed by: Henrry Rothman M.D. 07/23/2016 4:59 PM Dictated Date/Time: 07/23/2016 4:55 PM
--- NOTE | 2016-07-23 17:55 | EMERGENCY ROOM VISIT NOTE ---
History Report prepared by Akila: Eligio Hall Under the Supervision of: Dr. Pop Ruiz D.O. First contact with patient: 14:31 Chief Complaint: LEG PAIN,LEG INJURY Stated Complaint: POST OP BACK SURGERY, PAIN DOWN L LEG History of Present Illness The patient is a 30 year old female who presents to the Emergency Room with complaints of persistent left leg pain beginning yesterday. She had back surgery 3 weeks ago for a herniated disc, and that yesterday, while standing in the kitchen washing dishes, she sneezed which caused a sudden pain in her back radiating down the back of her left leg to her calf. She did not taking anything for pain, and reports she is about 2 weeks per a home test. Her last period was 1 month ago, and she has not had vaginal bleeding since then. She adds that she had a miscarriage in this past May. The patient notes having similar symptoms before her back surgery, but thought she was doing better. She denies having any abdominal pain. Source of History: patient Onset: yesterday Position: leg (left) Quality: other (leg pain) Timing: other (persistent) Associated Symptoms: + back pain, No abdominal pain Note: The patient denies having vaginal bleeding. Review of Systems See HPI for pertinent positives & negatives. A total of 10 systems reviewed and were otherwise negative. Past Medical & Surgical Medical Problems: (1) Lumbar disc herniation with radiculopathy (2) Miscarriage (3) (4) Sciatica Surgical Problems: (1) S/P cholecystectomy (2) S/P thyroid surgery Family History Cancer Diabetes mellitus Heart disease Hypertension Social History Smoking Status: Never Smoker Alcohol Use: none Drug Use: none Marital Status: Housing Status: lives with family Occupation Status: employed Current/Historical Medications Scheduled Levothyroxine Sodium (Levothyroxine Sodium), 25 MCG PO QAM Levothyroxine Sodium (Levothyroxine Sodium), 200 MCG PO QAM Multivit/Min/Iron/Fol Ac/Pren ( Vitamin), 1 TAB PO DAILY Allergies Coded Allergies: No Known Allergies (Verified , 06/28/16) Physical Exam Vital Signs Date Time Temp Pulse Resp B/P Pulse Ox O2 Delivery O2 Flow Rate FiO2 07/23/16 18:45 88 18 94/60 100 Room Air 07/23/16 17:51 79 110/58 07/23/16 16:57 99 16 137/48 96 Room Air 07/23/16 14:15 36.5 97 18 105/74 100 Room Air Physical Exam CONSTITUTIONAL/VITAL SIGNS: Reviewed / noted above. GENERAL: Non-toxic in appearance. INTEGUMENTARY: Warm, dry, and [place]. HEAD: Normocephalic. EYES: without scleral icterus or trauma. ENT/OROPHARYNX: clear and moist. LYMPHADENOPATHY/NECK: Is supple without lymphadenopathy or meningismus. RESPIRATORY: Lungs clear and equal. CARDIOVASCULAR: Regular rate and rhythm. GI/ABDOMEN: Soft and nontender. No organomegaly or pulsatile mass. No rebound or guarding. Normal bowel sounds. EXTREMITIES: Warm and well perfused. Normal lower extremity reflexes. BACK: Post surgical findings. No evidence of infection. NEUROLOGICAL: Intact without focal deficits. PSYCHIATRIC: normal affect. MUSCULOSKELETAL: Normally developed with good muscle tone. Medical Decision & Procedures ER Provider Diagnostic Interpretation: Radiology results as stated below per my review and radiologist interpretation: MRI OF THE LUMBAR SPINE WITHOUT CONTRAST FINDINGS: For purposes of numbering on this exam, the L5-S1 disc space is assigned to axial image 27 of 30. There are findings consistent with a left L5-S1 hemilaminectomy. Alignment of lumbar spine is anatomic. Vertebral body heights are maintained. There is no intracanalicular mass or fluid collection. Paravertebral soft tissues are unremarkable. L1-2: Central canal and neural foramen are patent. There is a tiny right paracentral disc protrusion. L2-3: The central canal and neural foramen are patent. L3-4: The central canal and neural foramen are patent. L4-5: There is a central annular tear with a small central disc protrusion. There is no central canal or neural foraminal narrowing. This is unchanged since MRI of June 24, 2016. L5-S1: Interval postoperative findings are noted since MRI of June 24, 2016. Evaluation is suboptimal given the lack of postcontrast imaging. A suspected large left upper central disc protrusion is noted which results in marked narrowing of the left lateral recess with mass effect upon the descending left S1 nerve root. The neural foramen are patent at this level. IMPRESSION: 1. Status post interval left hemilaminectomy at the L5-S1 level. 2. Large left paracentral disc protrusion at L5-S1 which results in marked narrowing of the left lateral recess with mass effect upon the descending left S1 nerve root. 3. No change in a small central disc protrusion and annular tear at L4-L5. Electronically signed by: Henrry Rothman M.D. 07/23/2016 4:40 PM Dictated Date/Time: 07/23/2016 4:33 PM FIRST TRIMESTER ULTRASOUND FINDINGS: The uterus measures 8.5 x 5 x 7.4 cm. Endometrium measures 1.1 cm in thickness. There is a tiny cystic structure within the endometrium which measures 0.28 x 0.2 x 0.22 cm for a mean diameter 0.23 cm. This is indeterminate. The right ovary measures 2.6 x 1.8 x 2.4 cm and the left measures 3.6 x 2 x 2.7 cm. There is color flow within each ovary. There is a small amount of fluid within the cul-de-sac. IMPRESSION: 1. Tiny endometrial cystic focus which measures 0.23 cm. This is indeterminate and could reflect a tiny intrauterine gestational sac. Given positive test, differential considerations include a normal early intrauterine gestation, sonographically occult ectopic and missed spontaneous . Close clinical follow-up, including serial beta hCG levels, is recommended. 2. Normal sonographic appearance of the ovaries. 3. Small amount of fluid within the pelvis. Electronically signed by: Henrry Rothman M.D. 07/23/2016 4:59 PM Dictated Date/Time: 07/23/2016 4:55 PM Laboratory Results 07/23/16 14:29 Red Blood Count 4.26, Mean Corpuscular Volume 87.3, Mean Corpuscular Hemoglobin 30.0, Mean Corpuscular Hemoglobin Concent 34.4, Mean Platelet Volume 9.9, Neutrophils (%) (Auto) 65.2, Lymphocytes (%) (Auto) 20.8, Monocytes (%) (Auto) 8.9, Eosinophils (%) (Auto) 4.7, Basophils (%) (Auto) 0.3, Neutrophils # (Auto) 5.80, Lymphocytes # (Auto) 1.85, Monocytes # (Auto) 0.79, Eosinophils # (Auto) 0.42, Basophils # (Auto) 0.03 07/23/16 14:29 Test 07/23/16 14:29 White Blood Count 8.90 K/uL (4.8-10.8) Red Blood Count 4.26 M/uL (4.2-5.4) Hemoglobin 12.8 g/dL (12.0-16.0) Hematocrit 37.2 % (37-47) Mean Corpuscular Volume 87.3 fL (80-100) Mean Corpuscular Hemoglobin 30.0 pg (25-34) Mean Corpuscular Hemoglobin Concent 34.4 g/dl (32-36) Platelet Count 334 K/uL (130-400) Mean Platelet Volume 9.9 fL (7.4-10.4) Neutrophils (%) (Auto) 65.2 % Lymphocytes (%) (Auto) 20.8 % Monocytes (%) (Auto) 8.9 % Eosinophils (%) (Auto) 4.7 % Basophils (%) (Auto) 0.3 % Neutrophils # (Auto) 5.80 K/uL (1.4-6.5) Lymphocytes # (Auto) 1.85 K/uL (1.2-3.4) Monocytes # (Auto) 0.79 K/uL (0.11-0.59) Eosinophils # (Auto) 0.42 K/uL (0-0.5) Basophils # (Auto) 0.03 K/uL (0-0.2) RDW Standard Deviation 42.6 fL (36.4-46.3) RDW Coefficient of Variation 13.3 % (11.5-14.5) Immature Granulocyte % (Auto) 0.1 % Immature Granulocyte # (Auto) 0.01 K/uL (0.00-0.02) Prothrombin Time 10.8 SECONDS (9.0-12.0) Prothromb Time International Ratio 1.0 (0.9-1.1) Activated Partial Thromboplast Time 28.2 SECONDS (21.0-31.0) Partial Thromboplastin Ratio 1.1 Anion Gap 10.0 mmol/L (3-11) Est Creatinine Clear Calc Drug Dose 113.5 ml/min Estimated GFR () 118.1 Estimated GFR (Non- 101.9 BUN/Creatinine Ratio 12.3 (10-20) Calcium Level 9.1 mg/dl (8.5-10.1) Total Bilirubin 1.1 mg/dl (0.2-1) Aspartate Amino Transf (AST/SGOT) 10 U/L (15-37) Alanine Aminotransferase (ALT/SGPT) 20 U/L (12-78) Alkaline Phosphatase 49 U/L (45-117) Total Protein 8.0 gm/dl (6.4-8.2) Albumin 4.3 gm/dl (3.4-5.0) Globulin 3.7 gm/dl (2.5-4.0) Albumin/Globulin Ratio 1.2 (0.9-2) Human Chorionic Gonadotropin, Quant 874 mIU/mL Laboratory results as stated above per my review. Medications Administered Medications (Trade) Dose Ordered Sig/Michaelle Route Start Time Stop Time Status Last Admin Dose Admin Sodium Chloride (Nss 1000ml) 1,000 ml @ 999 mls/hr Q1H1M STAT IV 07/23/16 14:44 07/23/16 15:44 DC 07/23/16 15:06 999 MLS/HR Acetaminophen (Tylenol Tab) 1,000 mg STK-MED ONCE PO 07/23/16 18:39 07/23/16 18:40 DC 07/23/16 18:36 1,000 MG ED Course 1437: Previous medical records were reviewed. The patient was evaluated in room C3. A complete history and physical examination was performed. 1444: Ordered NSS 1,000 ml @ 999 mls/hr IV. 1700: Discussed the patient's case with Dr. Pedraza. The patient will be evaluated for further treatment and disposition. Medical Decision differential considered includes cauda equina syndrome, conus medullaris, spinal cord compression syndrome, peripheral nerve compression, fractures or subluxations, intra-abdominal pathology such as abdominal aortic aneurysm or kidney stones, muscle strain, transverse myelitis, spinal cord injury. This is a 30-year-old female who presents to the ED with a chief complaint of severe low back pain that radiates down her left leg. The patient had a lumbar discectomy 3 weeks ago. She states that she was feeling fine up until yesterday. She states that she sneezed and developed the pain since then. The patient also reports that she is about 2 weeks . Last menstrual period was 4 weeks ago. The patient reports that her pain is similar to the pain she had prior to her back surgery. Her vital signs are normal. Her physical exam did not reveal any abdominal tenderness. There are postsurgical changes in the back without evidence of an infection. There is no tenderness to the lumbar region. Patient's reflexes are normal. She does have some increased pain with raising her left leg. MRI of the lumbar region reveals a large left paracentral disc protrusion at the L5-S1 level resulting in market narrowing of the left lateral recess with mass effect upon the descending left S1 nerve root. Pelvic ultrasound was performed and reveals a possible small intrauterine gestational sac. The patient's hCG level was 874. She is O+. CBC and chemistry panel were unremarkable. The patient was advised that anything but Tylenol was class C and not considered safe in . The patient has had a miscarriage in the past. She did not want stronger pain medication. She was hydrated with IV fluids. After speaking with the patient about the results of the test. The patient is nervous about taking medication that was not completely safe in . The patient does not feel comfortable going home because she is in significant pain. I spoke with Dr. Pedraza about this. He will keep the patient for observation for pain management and have ASPH[employer] P[employer] SUPERINTENDENT see the patient and possibly pain management to see what a good game plan would be for the patient. Consults Time Called: 1655 Consulting Physician: Dr. Pedraza, Orthopedics Returned Call: 1700 Discussed the patient's case with Dr. Pedraza. The patient will be evaluated for further treatment and disposition. Impression Primary Impression: Lumbar disc herniation with radiculopathy Additional Impression: First trimester Scribe Attestation The scribe's documentation has been prepared under my direction and personally reviewed by me in its entirety. I confirm that the note above accurately reflects all work, treatment, procedures, and medical decision making performed by me. Departure Information Dispostion Being Evaluated By Surgeon Referrals No Doctor, Assigned (PCP) Patient Instructions My [facility] Problem Qualifiers
[2016-07-23] MEDS ORDERED: ACETAMINOPHEN 500 MG TAB PO PRN (18:00)
[2016-07-23] MEDS ORDERED: NURSING VERBAL MED ORDER ONE (18:15)
[2016-07-23] MEDS ORDERED: ACETAMINOPHEN 500 MG TAB PO ONE (18:39)
[2016-07-23 19:15] VITALS: Ht 160 cm; Wt 91.0 kg
[2016-07-23] MEDS: LACTATED RINGER'S 1000ML 1,000 ML IV SCH (21:32)
[2016-07-23 22:55] VITALS: BP 111/67; PULSE 84; TEMP 36.9; O2SAT 96
[2016-07-23] MEDS: ACETAMINOPHEN 325 MG TAB PO PRN (23:50)
[2016-07-24] MEDS: ACETAMINOPHEN 325 MG TAB PO PRN ×5 (06:18→23:57)
[2016-07-24] MEDS: LACTATED RINGER'S 1000ML 1,000 ML IV SCH ×2 (06:18→18:36)
[2016-07-24 07:20] VITALS: BP 72/47; PULSE 84; TEMP 36.7; O2SAT 95
--- NOTE | 2016-07-24 08:46 | HISTORY & PHYSICAL EXAMINATION ---
DATE OF ADMISSION: 07/24/2016 CHIEF COMPLAINT: Back and left lower extremity difficulty. SUBJECTIVE: Harini is a delightful patient. She is 30 years of age. She had lumbar spine discectomy surgery L5-S1 for a large herniation on a somewhat urgent basis on 06/30/2016; so approximately 3+ weeks ago. She had a nice short term recovery. She was at the sink on Monday, had a coughing spell, re-herniated the disc fragment at the same space which is L5-S1. She came to my office for evaluation and treatment. She was placed on Tylenol, went home. At that point in time, it was in the back and buttock region. It did not radiate below her knee. Yesterday, which was Monday, she came right back to the Emergency Room. She was miserable and poorly functional. She was re-imaged. She had disc herniation, same spot L5-S1, large herniation compromising the nerve canal. The ER physicians called me and I admitted her to my service yesterday evening approximately at 6:00 p.m. I am seeing her this morning at approximately 7:30 a.m. She has severe back and lower extremity difficulty. She is at bed rest. She was able to get up to the bathroom, but minimally and was in tears after she got back into bed she can barely get comfortable. Her symptoms were very much like they were a month ago. MEDICAL HISTORY: Benign. No hypertension, COPD or asthma. SOCIAL HISTORY: She is healthy young lady at 30. PAST SURGICAL HISTORY: Cholecystectomy and thyroidectomy. ALLERGIES: Negative. MEDICATIONS: Synthroid and Percocet. REVIEW OF SYSTEMS: She denies blurred vision, double vision, tinnitus, vertigo, numbness and tingling of course; but no nausea or vomiting. OBJECTIVE: VITAL SIGNS: Blood pressure 130/80, pulse of 80, afebrile. HEENT: Pupils react to light and accommodation. CARDIAC: Normal S1, S2. LUNGS: Clear. ABDOMEN: Soft, nontender, good bowel sounds. She has significant pain with straight leg raising on the left. She has lost Achilles reflex on the left. Loss of sensation, moderate. IMAGES: Which were just done yesterday demonstrates a large disc herniation at L5-S1, recurrent. IMPRESSION: Large, recurrent disc herniation L5-S1 on the left. DISPOSITION: Includes admission to my service for IV medication along with some Tylenol for pain. I will be consulting pain management along with anesthesia along with VETERINARY ANATOMIST to get their input. As far as pain control and management; this can be safely performed as we get to handle on the situation. I have a strong feeling she is going to need re-surgery. It may even be a fusion at the L5-S1 level for the recurrent disc as she cannot afford to go through this; again it is a delicate issue, but posterior lumbar interbody fusion is not out of the realm possibility at L5-S1. This will be approximately a 2 hour surgical endeavor under general anesthetic. As far as getting to surgery, it may be Monday or of this coming week which is coming up in 2-4 days. I will not be able to get to it tomorrow which is Easter Monday because of other patients ahead of her. We will await input from the other physicians. We thank everybody for the participation. ROLA
--- NOTE | 2016-07-24 09:02 | Anesthesiology Progress Note ---
Anesthesia Progress Note Date of Service Jul 24, 2016. Progress Notes The patient is a 30 y/o female who will possibly have back surgery on 07/26/[address] Pedraza for disc herniation in L5/S1. The patient previously had surgery on her back one month ago and was doing well until she sneezed in her kitchen which caused a reherniation of the disc. The patient also just found out that she is about 4 weeks by hcg and ultrasound. The patient had recently had a D and E for missed AB in May. Other PMH includes hypothyroidism and obesity. The patient has a history of PONV but otherwise tolerates anesthesia. Labs were significant for potassium of 3.3. On exam the patient is pleasant. She has a MP 2 airway with good neck extension. Teeth are intact. Lungs are clear and heart is RRR. She is an ASA 2. I [address] Dr[address] Alvarez to the room to discuss the risk and benefits of surgery on her . Dr. Alvarez stated that while there are increased risks to the fetus with surgery and anesthesia there are also risks of the patient lying in pain such as DVT as well as stress and pain hormones to the fetus. Additionally, the may not go to term or may have issues even if the patient did not require back surgery. The patient understood the risks and is willing to proceed with whatever Dr. Alvarez and Dr. Pedraza is the best plan. The patient was consented to a general anesthetic. I discussed the risks of anesthesia including those related to . She was counseled to remain NPO after midnight except for sips of water with pills tomorrow if the surgery is scheduled for Monday.
[2016-07-24 14:56] VITALS: BP 95/63; PULSE 77; TEMP 36.8; O2SAT 95
--- NOTE | 2016-07-24 16:35 | GYNECOLOGICAL CONSULTATION ---
DATE OF CONSULTATION: 07/24/2016 REQUESTING PHYSICIAN: Marko Pedraza DO PROVIDING PHYSICIAN: Elizabeth Alvarez MD CHIEF COMPLAINT: Back pain and . HISTORY OF PRESENT ILLNESS: This is a 30-year-old G3, P1-0-1-1, who is currently admitted to the hospital with recurrent lumbar disk herniation. Recent history includes a back surgery done by Dr. Pedraza to repair a prior lumbar herniation, which was about 3 weeks ago. Prior to that surgery, the patient was in poor condition with limited mobility. After surgery, she felt significantly better. The patient was at home yesterday evening and doing dishes when she sneezed and reports that at that time, she had sudden onset of incapacitating low back pain, which began to radiate down her legs. She returned to the hospital, where she was found to have a recurrence of her herniation from the L5 to sacral levels. Dr. Pedraza had requested gynecologic consultation before taking the patient for repeat repair of this due to her becoming in the interim. Interestingly, Harini has had a recent miscarriage, for which she was managed with a D\T\E in May of 2016. Her quants were not followed, so we do not have evidence that they went definitively to 0. However, she reports a last menstrual period of 06/23/2016. She reports sexual activity which could have been consistent with the conception on July 07. Two days ago, when she would have had her menstrual period but missed it, she got a positive home test. Based on her last menstrual period of June 23, she is currently estimated to be 4 weeks 3 days gestational age. She reports that there has been no vaginal bleeding, no cramping and no symptoms as yet either. OBSTETRIC HISTORY: She is a 3, para 1-0-1-1. She had an uncomplicated vaginal delivery 8 years ago for a healthy daughter. She had the aforementioned miscarriage treated by D\T\Es at May and then she has the current . ALLERGIES: No known drugs. CURRENT MEDICATIONS: vitamins and 225 mcg daily of Synthroid. 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 PAST SURGICAL HISTORY: Complete thyroidectomy, D\T\E, gallbladder removal and a prior back surgery. FAMILY HISTORY: Negative for any related problems or defects. SOCIAL HISTORY: She is a female who does not use tobacco, alcohol or recreational drugs. PHYSICAL EXAMINATION: VITAL SIGNS: This patient is noted to have a blood pressure during this admission of 111/67 and 72/47, pulse ox 95%-96%, respiratory rate 16, pulse 84, and temperature 36.7. GENERAL: She is alert, seated in semi-Robert's position in bed and appears to be in mild distress, especially with any movements. She is speaking fluently and is obviously frustrated with her current condition. HEART: Shows regular rate and rhythm. No rubs, murmurs or gallops. LUNGS: Clear to auscultation bilaterally. ABDOMEN: Soft and nontender. GENITOURINARY: Deferred at this time. LABORATORY VALUES: On admission, had a white count of 8.9, hemoglobin 12.8, and platelets of 334 and a quantitative hCG was reported at 874. ASSESSMENT AND PLAN: This is a 30-year-old G3, P1-0-1-1 with at 4 weeks and 3 days based on a positive home test and quant of 800+, admitted for recurrent herniation of the lumbar disk with significant disability resulting from the same. METAL MODEL BUILDER is consulted from the standpoint of management and considerations in treatment of her back surgery given her current . My discussion with Dr. Pedraza this morning, as well as with the patient, and also with Dr. Cabrera who saw her concurrently with myself, was that in general, care of a maternal medical issue should not be deferred or delayed unnecessarily on the basis of a concurrent . Mom's health is of course paramount to wellbeing. If the patient were to remain bedbound due to her back issues, she would be at increased risk for blood clots, deep venous thromboses, pulmonary embolus and other serious complications. Therefore, getting the patient up and moving as well as treating her pain are not merely a matter of compassion, but also of preventing significant health complications. We discussed that the period of in which the fetus is most susceptible to teratogenetic agents is organogenesis, which is generally thought to include the gestational ages up to about 8 weeks. During that time, if it is possible to avoid general anesthesia or teratogenetic agents, it would be solis to do so; however, as I pointed out to the patient this morning, were she to have a ruptured appendix, it would be addressed with surgery even during organogenesis. If her back surgery is felt to be urgent, it may need to be completed without delay. We further discussed that, as she is well aware, early pregnancies do carry some risk of miscarriage. We discussed that while this is a desired and we will do everything possible to maximize maternal and wellbeing and minimize risks by making balanced medical choices, unfortunately her medical condition requires treatment and cannot go ignored. She expressed good understanding of these unfortunate realities and expressed her gratitude that the team is taking into consideration doing what we can to protect both her and the baby. At this point, her quantitative hCG is very low, and the is so early that US cannot even demonstrate that it is intrauterine. I would recommend and will order a followup quantitative hCG to be done in 48 hours after her most recent one to document that it is rising appropriately. Assuming that the continues normally and her surgery or other back treatments are successful, we recommend that her first visit be around 8 weeks. The patient relays to me today that she already has been scheduled. ROLA
--- NOTE | 2016-07-24 20:29 | PROGRESS NOTE ---
DATE: 07/23/2016 SUBJECTIVE: Her pain is still very difficult to control. She is mostly at bed rest. I can get her out of bed to the bathroom and that is about all. She has loss of sensation, slight loss of reflex. She has no bowel or bladder consequences. No fevers, sweats or chills. Images demonstrate large disc herniation lumbar spine L5-S1. IMPRESSION: A delightful young lady, 30 years of age with a large disc herniation lumbar spine, is also 4 weeks . DISPOSITION: Includes pain medication tonight and tomorrow which is Monday, pain management and we will see her in consultation. She may be a candidate for injection. As it stands right now, I will be scheduling her for surgery on this coming Monday which should be 26 July under general anesthetic. It will be approximately a 2 to 2.5 hours surgery, posterior lumbar interbody fusion. I have gone over the procedure with the patient. She is alert, understands and asked intelligent questions.
[2016-07-24 22:56] VITALS: BP 96/54; PULSE 79; TEMP 36.8; O2SAT 95
[2016-07-24 23:59] VITALS: BP 99/66; PULSE 82
[2016-07-25] VITALS (7 sets, daily range): BP systolic 80–126; BP diastolic 54–85; PULSE 65–99; TEMP 36.6–37.1; O2SAT 94–100
[2016-07-25] MEDS: ACETAMINOPHEN 325 MG TAB PO PRN (06:22)
[2016-07-25] MEDS: LACTATED RINGER'S 1000ML 1,000 ML IV SCH ×2 (07:25→19:22)
[2016-07-25] MEDS ORDERED: OXYCODONE/ACETAMINOPHEN 5-325 TAB PO PRN (07:45)
[2016-07-25] MEDS ORDERED: NALOXONE HCL 0.4 MG/1 ML VIAL/CARP IV PRN (09:00)
[2016-07-25] MEDS: LEVOTHYROXINE 200 MCG TAB PO SCH (09:03)
[2016-07-25] MEDS: PRENATAL VITAMIN TAB PO SCH (09:03)
[2016-07-25] MEDS: LEVOTHYROXINE 25 MCG TAB PO SCH (09:03)
--- NOTE | 2016-07-25 10:10 | Pain Management Consultation ---
Pain Management Consultation Date of Consultation Jul 25, 2016. Reason for Consultation Assistance with perioperative pain management. History Uvaldo Montanez is a 30-year-old G3, P1-0-1-[address] female [address] [facility] with recurrent disc herniation. She is also approximately 4 weeks with a positive hCG. She underwent a recent L5/S1 disc surgery for radiculopathy on 06/30/2016. She reports that she was at a kitchen counter and had a vigorous sneeze and had immediate pain in the back and both lower extremities. Today she complains experiencing left-sided low back pain with radiation into the posterior aspect of her thigh and posterior lateral aspect of her left lower extremity all the way to the ankle. Pain is described a sharp and stabbing with burning component. She also reports experiencing weakness in the left lower extremity in a generalized manner but denies any paresthesia, settling seizure, bowel bladder incontinence. She rates the pain as 10/10 when severe and 4/10 when minimal. Next When she remains in supine, immobile position, she reports being relatively "comfortable". Any movement the trunk such as rotating, or ambulating to go to the bathroom, causes her severe left lower extremity pain. Pain occurs with activities required for daily living. Currently, she is ordered oxycodone/acetaminophen and regular acetaminophen. She has not used the oxycodone/acetaminophen. She reports minimal efficacy form the acetaminophen. She has undergone spine surgery evaluation and tentatively repeat surgery is scheduled to be performed tomorrow. She has also undergone anesthesia and obstetric evaluation and she is agreeable to proceeding with surgery because of severe symptoms and radiculapathy. Pain management consultation was requested for assistance and recommendation regarding perioperative analgesic management. Past Medical/Surgical History (1) S/P cholecystectomy (2) S/P thyroid surgery Social / Work History Marital Status: Housing Status: lives with significant other Occupation: employed Allergies Coded Allergies: No Known Allergies (Verified , 06/28/16) Medications Current Inpatient Medications Medications (Trade) Dose Ordered Sig/Michaelle Route Start Time Stop Time Status Last Admin Dose Admin Lactated Ringer's (Lr 1000ml) 1,000 ml @ 80 mls/hr [id number] IV 07/23/16 18:30 08/22/16 18:29 07/25/16 07:25 80 MLS/HR Acetaminophen (Tylenol Tab) `1-2 tabs for pain 1 tab ... Q4H PRN PO 07/23/16 18:30 08/22/16 18:29 07/25/16 06:22 650 MG Levothyroxine Sodium (Synthroid Tab) 25 mcg DAILYBB PO 07/25/16 09:00 08/24/16 08:59 Levothyroxine Sodium (Synthroid Tab) 200 mcg DAILYBB PO 07/25/16 09:00 08/24/16 08:59 Prenat Multivit/ Power/Iron/Folic Ac ( Vitamin Tab) 1 tab DAILY PO 07/25/16 09:00 08/24/16 08:59 Oxycodone/ Acetaminophen (Percocet 5-325mg Tab) 1 tab Q4H PRN PO 07/25/16 07:45 08/08/16 07:44 Review of Systems Denies any recent history of fever, night sweats, unexplained weight loss, or constitutional symptoms. Otherwise, 8 point review of system has been reported to be negative. Physical Exam Height & Weight: Height 5 feet, 3.00 inches. Weight 91.000 (Kilograms) 200 (Pounds) Last Vital Signs Documentation Date Time Temp Pulse Resp B/P Pulse Ox O2 Delivery O2 Flow Rate FiO2 07/25/16 07:41 100/68 07/25/16 07:20 Room Air 07/25/16 07:16 36.9 81 20 100 Exam: Harini Montanez is alert and oriented. Mood and affect are appropriate. Short- term and long-term memory is intact. Sensorium is clear. Inspection of the lumbar spine demonstrates normal curvatures. No lesions are noted in the lumbar spine region. Provocative testing of the facet joints is unremarkable. Provocative testing of the sacroiliac joints bilaterally including 5 provocative tests is unremarkable. Diffuse myofascial tenderness is identifiable in the paraspinous musculature in the left distal lumbar spine. Neurologically, straight leg raising is severely positive on the left side at 15 and worsens with Achilles stretch. Straight leg raising is negative on the right side past 90 and no changes noted Achilles stretch. Sensation in the lower extremities is negative without deficit. She has weakness in the left foot dorsiflexion and extensor hallucis longus on the left side. Although the appears to some motor weakness left shimmy generally, it is more from guarding from pain rather than true, intrinsic weakness. No pathologic reflexes are noted in the lower extremities. Gait was not tested.. Patellar Reflex L +2 R +2 Achilles Reflex L +2 R +2 Laboratory / Imaging Results Laboratory Results (Last CBC): 07/23/16 14:29 Red Blood Count 4.26, Mean Corpuscular Volume 87.3, Mean Corpuscular Hemoglobin 30.0, Mean Corpuscular Hemoglobin Concent 34.4, Mean Platelet Volume 9.9, Neutrophils (%) (Auto) 65.2, Lymphocytes (%) (Auto) 20.8, Monocytes (%) (Auto) 8.9, Eosinophils (%) (Auto) 4.7, Basophils (%) (Auto) 0.3, Neutrophils # (Auto) 5.80, Lymphocytes # (Auto) 1.85, Monocytes # (Auto) 0.79 H, Eosinophils # (Auto ) 0.42, Basophils # (Auto) 0.03 Imaging: MRI performed this admission demonstrates: IMPRESSION: 1. Status post interval left hemilaminectomy at the L5-S1 level. 2. Large left paracentral disc protrusion at L5-S1 which results in marked narrowing of the left lateral recess with mass effect upon the descending left S1 nerve root. 3. No change in a small central disc protrusion and annular tear at L4-L5. Electronically signed by: Henrry Rothman M.D. 07/23/2016 4:40 PM Dictated Date/Time: 07/23/2016 4:33 PM [place] Drug Monitoring Program Search Results: patient reviewed within database, no issues identified Assessment 1. Acute disc herniation. 2. Lumbar radiculopathy. 3. Early first trimester . Recommendations 1. Risks of opioid use in general during , specifically with the use of IV morphine and hydromorphone, in the first trimester were discussed with the patient. She was informed that opioids in general, and specifically IV morphine and hydromorphone, are classified as category C during ...meaning that the risk of the use including, teratogenicity, during the first trimester versus the benefits must be evaluated. The risks of uncontrolled pain, debility, possibility of DVT and PE from being immobile, as well as postoperative pain must outweigh the risk of use of opioids in early . Apparently, patient has significant pain at the present time and will require potent analgesics postoperatively for surgical pain from undergoing further discectomy and fusion. Understandings and risks to the developing fetus, She would like to proceed with the use of IV agents. She accepts the potential side effects and risks to the developing fetus in early . Therefore, we will provide Harini with IV hydromorphone DECORATOR INSPECTOR with the use of minimal dosages to provide sufficient pain relief. Would recommend the use of lowest dosages and shortness duration of hydromorphone or oxycodone after surgery. Would not recommend use of opioids postoperatively throughout the as it might cause opiate dependence. [employer] Voice Recognition This chart was completed in part utilizing [employer] Voice Recognition Software. Random word insertions, pronoun errors, and incomplete sentences are an occasional consequence of this system due to software limitations and ambient noise. Any questions or concerns about the content, text or information contained within the body of this dictation should be directly addressed to the provider for clarification.
[2016-07-25] MEDS: HYDROmorphone HCL 0.5MG/ML 50 ML CASSETTE IV PRN ×2 (11:30→23:10)
[2016-07-25] MEDS: SODIUM CHLORIDE 0.9% 1000ML 1,000 ML IV SCH (11:31)
[2016-07-25] MEDS: LOCK-OUT PCA TITRATION SCH (16:00)
[2016-07-26] VITALS (10 sets, daily range): BP systolic 87–104; BP diastolic 55–70; PULSE 71–108; TEMP 36.6–36.9; O2SAT 96–100
[2016-07-26] MEDS: LEVOTHYROXINE 200 MCG TAB PO SCH (06:00)
[2016-07-26] MEDS: LEVOTHYROXINE 25 MCG TAB PO SCH (06:00)
[2016-07-26] MEDS: HYDROmorphone HCL 0.5MG/ML 50 ML CASSETTE IV PRN ×4 (07:05→22:58)
[2016-07-26] MEDS: LACTATED RINGER'S 1000ML 1,000 ML IV SCH (07:33)
[2016-07-26] MEDS: LOCK-OUT PCA TITRATION SCH ×4 (08:00→23:52)
[2016-07-26] MEDS: SODIUM CHLORIDE 0.9% 1000ML 1,000 ML IV SCH ×2 (08:51→20:42)
[2016-07-26] MEDS: PRENATAL VITAMIN TAB PO SCH (09:00)
[2016-07-26] MEDS ORDERED: NURSING VERBAL MED ORDER ONE (15:45)
[2016-07-26] MEDS ORDERED: CEFAZOLIN IV 2,000 MG/60 ML D5W IV ONE (15:50)
--- NOTE | 2016-07-26 15:50 | History & Physical Bridge Note ---
H&P Re-Evaluation Bridge Note: I have examined the patient, reviewed the History & Physical and in the interval since the performance of the History & Physical I have noted the following changes of clinical significance: No changes noted L5-S1 discectomy and probable fusion L5-S1,
[2016-07-26] MEDS ORDERED: GELATIN SPONGE SZ 100 ONE (16:04)
[2016-07-26] MEDS ORDERED: THROMBIN FOR SOLN 20000 UNIT KIT ONE (16:04)
[2016-07-26] MEDS ORDERED: BACITRACIN 50000 UNIT VIAL ONE (16:05)
[2016-07-26] MEDS ORDERED: BUPIVACAINE/EPINEPHRINE 0.5% MPF 1:200,000 30 ML VIAL ONE (16:05)
[2016-07-26] MEDS ORDERED: VANCOMYCIN HCL 1000MG/20ML VIAL ONE (16:05)
[2016-07-26] MEDS ORDERED: FENTANYL CITRATE INJ 50 MCG/1 ML 2 ML VIAL ONE ×2 (16:06)
[2016-07-26] MEDS ORDERED: LACTATED RINGER'S 1000ML 1,000 ML IV PRN (16:08)
[2016-07-26] MEDS ORDERED: HYDROmorphone INJ 1 MG/ML SYR IV PRN (16:15)
[2016-07-26] MEDS ORDERED: FENTANYL CITRATE INJ 50 MCG/1 ML 2 ML VIAL IV PRN (16:15)
[2016-07-26] MEDS ORDERED: ONDANSETRON INJ 2 MG/ML 2 ML VIAL IV PRN (16:45)
[2016-07-26] MEDS ORDERED: ATROPINE SULFATE 0.1 MG/ML 5ML SYR IV PRN (16:45)
[2016-07-26] MEDS ORDERED: HYDROmorphone INJ 2 MG/ML SYR/VIAL IV PRN (16:45)
[2016-07-26] MEDS ORDERED: LIDOCAINE HCL 2% 2 ML VIAL (20MG/ML) ONE (17:03)
[2016-07-26] MEDS ORDERED: NEOSTIGMINE METHYLSULFATE 5 MG/5 ML SYR ONE (17:03)
[2016-07-26] MEDS ORDERED: ROCURONIUM BROMIDE 10 MG/ML 5 ML VIAL ONE ×2 (17:03→17:18)
[2016-07-26] MEDS ORDERED: METOCLOPRAMIDE HCL INJ 5 MG/ML 2 ML VIAL ONE (17:03)
[2016-07-26] MEDS ORDERED: ONDANSETRON INJ 2 MG/ML 2 ML VIAL ONE (17:03)
[2016-07-26] MEDS ORDERED: HYDROmorphone INJ 2 MG/ML SYR/VIAL ONE (17:03)
[2016-07-26] MEDS ORDERED: PROPOFOL IV EMULSION 10 MG/ML 20 ML VIAL IV ONE (17:03)
[2016-07-26] MEDS ORDERED: GLYCOPYRROLATE INJ 0.2 MG/ML VIAL ONE (17:03)
[2016-07-26] MEDS ORDERED: DiphenhydrAMINE HCL 50 MG/ML VIAL ONE (17:03)
[2016-07-26] MEDS ORDERED: SODIUM CHLORIDE 0.9% 1000ML 1,000 ML IV SCH (18:51)
--- NOTE | 2016-07-26 18:53 | [facility] Post Operative Brief Note ---
Immediate Operative Summary Operative Date Jul 26, 2016. Pre-Operative Diagnosis Large, Recurrent Disc Herniation L5-S1 Post-Operative Diagnosis Large, Recurrent Disc Herniation L5-S1 Procedure(s) Performed L5-S1 Posterior Lumbar Interbody Fusion Surgeon Dr. Marko Pedraza Delivery Crew Member Surgeon(s) Eligio Penny PA-C Estimated Blood Loss 150ML Findings large disc and instability Specimens none, Per Surgeon Complication(s) None Disposition Recovery Room / PACU
[2016-07-26] MEDS ORDERED: METOCLOPRAMIDE HCL INJ 5 MG/ML 2 ML VIAL IV PRN (19:00)
[2016-07-26] MEDS ORDERED: LORAZEPAM 1 MG TAB PO PRN (19:00)
[2016-07-26] MEDS ORDERED: LORAZEPAM INJ 1 MG in SYRINGE 0.5 ML IV PRN (19:00)
[2016-07-26] MEDS ORDERED: MAGNESIUM HYDROXIDE SUSP 30 ML UDC PO PRN (19:00)
[2016-07-26] MEDS ORDERED: HYDROmorphone HCL 0.5MG/ML 50 ML CASSETTE IV PRN (19:00)
[2016-07-26] MEDS ORDERED: NALOXONE HCL 0.4 MG/1 ML VIAL/CARP IV PRN (19:00)
[2016-07-26] MEDS ORDERED: PROMETHAZINE HCL INJ 12.5 MG in SODIUM CHLORIDE 0.9% 50ML 50 ML IV PRN (19:00)
[2016-07-26] MEDS: HYDROmorphone INJ 2 MG/ML SYR/VIAL IV PRN ×5 (19:10→19:30)
--- NOTE | 2016-07-26 20:55 | Anesthesiology Progress Note ---
Anesthesia Post Op Note Date & Time Jul 26, 2016 at 20:55 Vital Signs Pain Intensity: 4 Vital Signs Past 12 Hours Date Time Temp Pulse Resp B/P Pulse Ox O2 Delivery O2 Flow Rate FiO2 07/26/16 20:20 36.6 92 12 96/61 99 Nasal Cannula 4.0 07/26/16 19:40 36.5 96 18 97/57 99 Nasal Cannula 4 07/26/16 19:30 83 18 97/50 99 Nasal Cannula 4 07/26/16 19:20 74 18 98/51 99 Nasal Cannula 4 07/26/16 19:10 74 18 109/55 100 Mask 10 07/26/16 19:00 74 18 114/51 100 Mask 10 07/26/16 18:53 36.8 85 18 114/51 100 Mask 10 07/26/16 15:24 37 77 18 95/58 97 Room Air 07/26/16 12:02 36.9 71 16 89/58 97 Room Air Notes Mental Status: alert / awake / arousable, participated in evaluation Pt Amnestic to Procedure: Yes Nausea / Vomiting: adequately controlled Pain: adequately controlled Airway Patency, RR, SpO2: stable & adequate BP & HR: stable & adequate Hydration State: stable & adequate Anesthetic Complications: no major complications apparent
[2016-07-27] VITALS (7 sets, daily range): BP systolic 88–100; BP diastolic 57–69; PULSE 87–98; TEMP 36.7–37.2; O2SAT 93–100
[2016-07-27] MEDS: CEFAZOLIN IV 2,000 MG in DEXTROSE 5% 50ML 50 ML IV SCH ×3 (00:02→15:37)
[2016-07-27] MEDS ORDERED: BISACODYL 10 MG SUPP PR PRN (06:00)
[2016-07-27] MEDS ORDERED: BISACODYL 5 MG TABEC PO PRN (06:00)
[2016-07-27] MEDS: LEVOTHYROXINE 200 MCG TAB PO SCH (06:08)
[2016-07-27] MEDS: LEVOTHYROXINE 25 MCG TAB PO SCH (06:08)
[2016-07-27] MEDS: HYDROmorphone HCL 0.5MG/ML 50 ML CASSETTE IV PRN ×3 (07:02→23:43)
--- NOTE | 2016-07-27 07:03 | OPERATIVE REPORT ---
DATE OF OPERATION: 07/26/2016 PREOPERATIVE DIAGNOSIS: Large recurrent disc herniation, lumbar spine. POSTOPERATIVE DIAGNOSIS: Same. PROCEDURES: Include a posterior lumbar spine decompression laminectomy, foraminotomy, partial facetectomy, removal and excision of a huge disc herniation several fragments at L5-S1, posterior lumbar interbody L5-S1, pedicle screw instrumentation L5-S1. SURGEON: Dr. Pedraza. HAND TUBE BENDER: Eligio Penny PA-C. COMPLICATIONS: Zero. ESTIMATED BLOOD LOSS: 150. DESCRIPTION OF PROCEDURE: The patient was taken to the operating room. General intubated anesthetic provided to the patient, placed prone, prepped and draped sterile. I made a skin incision and fascial incision, dissecting the soft tissue down the same plane, down on the lamina of L5-S1. We were able to put in deep self-retaining retractors. We were 4 inches just to the spine itself. We then started decompression laminectomy of L5 and S1, foraminotomies, partial facetectomies bilaterally. I was able to retract the dura and nerve root over on the left hand side, taking out large amounts of disc material that had herniated into the nerve root. I thought at the end we were free of obstruction. We then prepared the spine for a posterior lumbar interbody fusion. Different shaving techniques from the Kadmon were used to shave up to a size 10. We then put in some pedicle screws. We safely got pedicle screws into 5 and sacrum. They were near anatomic, well placed on using anatomic landmarks and C-arm guidance. We then put in the interbody cage. This was first preceded and packed with autograft. We also locked down the pedicle screw construct. We then bone grafted out over transverse processes as well. We closed the fascia to fascia with #1 Vicryl suture, 2-0 in a subcuticular layer, 3-0 nylon on the skin, sterile dressing applied. This was all closed over vancomycin powder and a Hemovac drain. Sterile dressing was applied. The patient returned supine to PACU stable. No apparent complications. I attest to the content of the Intraoperative Record and any orders documented therein. Any exceptio ns are noted below.
[2016-07-27] MEDS: SODIUM CHLORIDE 0.9% 1000ML 1,000 ML IV SCH ×3 (07:21→07:54)
[2016-07-27] MEDS ORDERED: NURSING VERBAL MED ORDER ONE ×2 (07:30→08:45)
--- NOTE | 2016-07-27 07:39 | DIAGNOSTIC IMAGING REPORT ---
INTRAOPERATIVE RADIOGRAPH CLINICAL HISTORY: L5-S1 spinal fusion. Fluoroscopy time: 6 seconds. FINDINGS: A single spot fluoroscopic view of the lower lumbar spine is presented. There has been discectomy at L5-S1 with laminectomy and posterior fusion. Interpedicular screws are present at both levels. The orthopedic hardware appears intact. IMPRESSION: Intraoperative image from L5 -S1 spinal fusion as above. Electronically signed by: Patrick Ta M.D. 07/26/2016 6:41 PM Dictated Date/Time: 07/26/2016 6:35 PM
--- NOTE | 2016-07-27 07:40 | ORTHOPEDICS PROGRESS NOTE ---
DATE: 07/27/2016 Alert, oriented. Pain is moderately controlled. Vital signs stable. Alert, oriented. No chest pain or shortness of breath. No abdominal distention. ASSESSMENT: Status post revision lumbar spine surgery. She had a posterior lumbar spine interbody fusion performed. We finished up last night at 6:30 p.m. DISPOSITION: We will get her up and try to get her ambulatory today. We will continue with her DIRECTOR IMMUNOLOGY for approximately another 8-12 hours. We will then transfer over to p.o. medications. I anticipate her being in the hospital today and tomorrow, home Monday which would be in 48 hours from now.
[2016-07-27] MEDS: LOCK-OUT PCA TITRATION SCH ×2 (07:53→16:00)
[2016-07-27] MEDS ORDERED: DC PCA ONE (07:59)
[2016-07-27] MEDS ORDERED: HYDROmorphone INJ 2 MG/ML SYR/VIAL IV PRN (08:00)
[2016-07-27] MEDS ORDERED: HYDROmorphone INJ 1 MG/ML SYR IV PRN (08:00)
[2016-07-27] MEDS ORDERED: OXYCODONE/ACETAMINOPHEN 5-325 TAB PO PRN ×2 (08:00)
[2016-07-27] MEDS: PRENATAL VITAMIN TAB PO SCH (09:20)
[2016-07-27] MEDS: POLYETHYLENE (MIRALAX) 17 GM PACK PO SCH (09:22)
[2016-07-27] MEDS: ONDANSETRON INJ 2 MG/ML 2 ML VIAL IV PRN ×3 (10:21→18:16)
--- NOTE | 2016-07-27 10:57 | Pain Management Progress Note ---
Pain Management Progress Note Date of Service Jul 27, 2016. Subjective Ms. Montanez is seen for follow-up this morning. She underwent lumbar spine surgery yesterday uneventfully. This morning she reports improvement radicular symptoms and has been able to move the lower extremities without any pain in the leg. She complains experiencing low back pain related to the surgery. She is currently undergoing physical therapy in bed. Has been using IV hydromorphone NETWORK SUPPORT MANAGER. Denies any other complaints this morning. Objective Vital Signs: Last Vital Signs Documentation Date Time Temp Pulse Resp B/P Pulse Ox O2 Delivery O2 Flow Rate FiO2 07/27/16 08:14 Room Air 07/27/16 07:30 36.7 87 16 88/57 95 07/27/16 04:05 2.0 Physical Exam: Harini is alert and oriented. Mood and affect are appropriate. Short-term and long-term memory is intact. Sensorium is clear. She diminishes intact sensation and motor strength in lower extremities. Dressing is intact in the lumbar spine. The diffuse tenderness to palpation of the operative site. Laboratory (Last CBC): 07/23/16 14:29 Red Blood Count 4.26, Mean Corpuscular Volume 87.3, Mean Corpuscular Hemoglobin 30.0, Mean Corpuscular Hemoglobin Concent 34.4, Mean Platelet Volume 9.9, Neutrophils (%) (Auto) 65.2, Lymphocytes (%) (Auto) 20.8, Monocytes (%) (Auto) 8.9, Eosinophils (%) (Auto) 4.7, Basophils (%) (Auto) 0.3, Neutrophils # (Auto) 5.80, Lymphocytes # (Auto) 1.85, Monocytes # (Auto) 0.79 H, Eosinophils # (Auto ) 0.42, Basophils # (Auto) 0.03 Assessment 1. Status post lumbar spine surgery for recurrent herniated disc. 2. First trimester . Recommendations 1. Continue judicious use of IV NETWORK SUPPORT MANAGER. 2. Recommend after 24 hours, recommended patient be switched to oral oxycodone for the minimal duration postoperatively after discharge. 3. If any further assistance required, please reconsult [facility] pain service. [employer] Voice Recognition This chart was completed in part utilizing [employer] Voice Recognition Software. Random word insertions, pronoun errors, and incomplete sentences are an occasional consequence of this system due to software limitations and ambient noise. Any questions or concerns about the content, text or information contained within the body of this dictation should be directly addressed to the provider for clarification.
--- NOTE | 2016-07-27 11:00 | Anesthesiology Progress Note ---
Anesthesia Post Op Note Date & Time Jul 27, 2016 at 10:59 Vital Signs Pain Intensity: 0.0 Vital Signs Past 12 Hours Date Time Temp Pulse Resp B/P Pulse Ox O2 Delivery O2 Flow Rate FiO2 07/27/16 08:14 Room Air 07/27/16 07:30 36.7 87 16 88/57 95 Room Air 07/27/16 06:34 96 Room Air 07/27/16 04:05 36.7 88 16 91/58 99 Nasal Cannula 2.0 07/26/16 23:50 36.7 93 16 96/62 100 Nasal Cannula 4.0 07/26/16 23:45 Nasal Cannula 2.0 Notes Mental Status: alert / awake / arousable, participated in evaluation Pt Amnestic to Procedure: Yes Nausea / Vomiting: improving with treatment Pain: adequately controlled Airway Patency, RR, SpO2: stable & adequate BP & HR: stable & adequate Hydration State: stable & adequate Anesthetic Complications: no major complications apparent
[2016-07-28 03:50] VITALS: BP 99/65; PULSE 100; TEMP 36.9; O2SAT 93
[2016-07-28] MEDS: ONDANSETRON INJ 2 MG/ML 2 ML VIAL IV PRN ×3 (06:15→19:32)
[2016-07-28] MEDS: HYDROmorphone HCL 0.5MG/ML 50 ML CASSETTE IV PRN (06:59)
[2016-07-28] MEDS: LEVOTHYROXINE 25 MCG TAB PO SCH (07:26)
[2016-07-28] MEDS: LEVOTHYROXINE 200 MCG TAB PO SCH (07:26)
[2016-07-28 07:42] VITALS: BP 90/59; PULSE 98; TEMP 36.8; O2SAT 92
[2016-07-28] MEDS ORDERED: NURSING VERBAL MED ORDER ONE (09:00)
[2016-07-28] MEDS: LOCK-OUT PCA TITRATION SCH ×2 (09:10)
[2016-07-28] MEDS: POLYETHYLENE (MIRALAX) 17 GM PACK PO SCH (09:11)
[2016-07-28] MEDS: PRENATAL VITAMIN TAB PO SCH (09:11)
[2016-07-28 12:24] VITALS: BP 96/65; PULSE 101; TEMP 36.8; O2SAT 95
[2016-07-28] MEDS: ACETAMINOPHEN 325 MG TAB PO PRN ×2 (13:32→19:31)
--- NOTE | 2016-07-28 13:33 | Discharge Instructions ---
Discharge Instructions Date of Service Jul 28, 2016. Admission Reason for Admission: Post Op Back Surgery, Pain Down L Leg Discharge Discharge Diagnosis / Problem: disc herniation Discharge Goals Goal(s): Improve function Activity Recommendations Activity Limitations: as noted below Lifting Limitations: until after follow-up appointment Exercise/Sports Limitations: until after follow-up appointment May Resume Sexual Activity: after follow-up appointment Shower/Bathe: keep incision dry Driving or Machine Use: . Current Hospital Diet Patient's current hospital diet: Regular Diet Discharge Diet Recommended Diet: Regular Diet Procedures Procedures Performed: L5-S1 Posterior Lumbar Interbody Fusion Pending Studies Studies pending at discharge: no Medical Emergencies . Who to Call and When: Medical Emergencies: If at any time you feel your situation is an emergency, please call 911 immediately. . Non-Emergent Contact Non-Emergency issues call your: Surgeon . "Provider Documentation" section prepared by Marko Pedraza. . VTE Core Measure Inpt VTE Proph given/why not?: Cesar Corado
[2016-07-28 15:05] VITALS: BP 95/64; PULSE 105; TEMP 37.1; O2SAT 96
[2016-07-28 23:36] VITALS: BP 108/73; PULSE 91; TEMP 37; O2SAT 99
[2016-07-29] MEDS: ACETAMINOPHEN 325 MG TAB PO PRN (06:01)
[2016-07-29] MEDS: LEVOTHYROXINE 25 MCG TAB PO SCH (06:01)
[2016-07-29] MEDS: LEVOTHYROXINE 200 MCG TAB PO SCH (06:01)
[2016-07-29 07:11] VITALS: BP 98/65; PULSE 65; TEMP 37.1; O2SAT 92
[2016-07-29] MEDS: PRENATAL VITAMIN TAB PO SCH (08:48)
[2016-07-29] MEDS: POLYETHYLENE (MIRALAX) 17 GM PACK PO SCH (08:48)
[2016-07-29 10:51] VITALS: BP 98/65; PULSE 65; TEMP 37.1; O2SAT 92
--- NOTE | 2016-07-29 12:07 | DISCHARGE SUMMARY ---
SUBJECTIVE: She is alert, oriented. Pain controlled. No shortness of breath, chest pain, confusion. OBJECTIVE: Vital signs stable. Wound clean, dry. ASSESSMENT: Post-spinal surgery, lumbar spine PLIF procedure posterior lumbar interbody fusion. Doing well in the short run. DISPOSITION: We will get her up and ambulatory today. Discharge her home today. She has prescription on her chart. Instructions, precautions provided here at the hospital and were provided to her in the past.
== END 2016-07-29 11:00 | disposition home or self-care (01) | DRG 460 ==
LOC: ENRESERVDT → ENRESERVTM → C.EDB 14:06 → C.MSW 18:07
PROVIDERS: ADMIT Orthopaedic Surgery Orthopaedic Surgery of the Spine; ATTEND Orthopaedic Surgery Orthopaedic Surgery of the Spine
PROC: 01NA0ZZ Release Lumbosacral Plexus, Open Approach (ICD-10-PCS; principal; 2016-07-26 14:30)
PROC: 0SG30AJ Fusion of Lumbosacral Joint with Interbody Fusion Device, Posterior Approach, Anterior Column, Open Approach (ICD-10-PCS; principal; 2016-07-26 14:30)
PROC: 0SG30J1 Fusion of Lumbosacral Joint with Synthetic Substitute, Posterior Approach, Posterior Column, Open Approach (ICD-10-PCS; principal; 2016-07-26 14:30)
DX: M51.17 Intervertebral disc disorders with radiculopathy, lumbosacral region (principal); Z98.890 Other specified postprocedural states; Z33.1 Pregnant state, incidental; Z3A.01 Less than 8 weeks gestation of pregnancy; E66.9 Obesity, unspecified; Z68.35 Body mass index [BMI] 35.0-35.9, adult; E89.0 Postprocedural hypothyroidism; Z90.49 Acquired absence of other specified parts of digestive tract

== ENCOUNTER → 2016-08-18 | Outpatient (CLI) | payer BC ==
[~2016-08-18] MED LIST changes: -IBUP-1050 PO; +LEVO150T PO; +ONDA4TAB10 SL; -OXYC-57 PO; +PRENTAB26 PO
== END | disposition home or self-care (01) ==
LOC: C.PAPS 07:42
PROVIDERS: ATTEND Obstetrics & Gynecology
DX: O26.891 Other specified pregnancy related conditions, first trimester (principal); R87.610 Atypical squamous cells of undetermined significance on cytologic smear of cervix (ASC-US)

== ENCOUNTER → 2016-08-19 | Outpatient (CLI) | payer BC ==
[2016-08-19 16:40] LABS: BASO % 0.3 %; BASO ABS # 0.02 K/uL (0-0.2); COMPLETE YES; EOS % 2.9 %; IG% 0.3 %; LYMPH % 21.5 %; LYMPH ABS # 1.72 K/uL (1.2-3.4); MEAN CORPUSCULAR HEMOGLOBIN 29.3 pg (25-34); MEAN CORPUSCULAR HGB CONC 32.6 g/dl (32-36); MONO % 8.9 %; NEUT % 66.1 %; PLATELET COUNT 318 K/uL (130-400); RED BLOOD COUNT 3.89 M/uL (4.2-5.4); WHITE BLOOD COUNT 7.99 K/uL (4.8-10.8)
[2016-08-19 17:11] LABS: THYROID STIMULATING HORMONE 16.4 uIu/ml (0.300-4.500)
== END | disposition home or self-care (01) ==
LOC: C.LAB1850 15:39
PROVIDERS: ATTEND Obstetrics & Gynecology
DX: Z34.81 Encounter for supervision of other normal pregnancy, first trimester (principal); E03.9 Hypothyroidism, unspecified

== ENCOUNTER → 2016-08-19 | Outpatient (CLI) | payer BC ==
[2016-08-22 11:23] LABS: CHLAMYDIA TRACH RNA*** NOT DETECTED (NOT DETECTED); GC (NEIS GONORRHOEAE)RNA** NOT DETECTED (NOT DETECTED)
== END | disposition home or self-care (01) ==
LOC: C.LABSPEC 17:20
PROVIDERS: ATTEND Obstetrics & Gynecology
DX: Z34.81 Encounter for supervision of other normal pregnancy, first trimester (principal)

== ENCOUNTER → 2016-09-14 | Outpatient (CLI) | payer BC, OTHER ==
[2016-09-14 15:29] LABS: THYROID STIMULATING HORMONE 57.3 uIu/ml (0.300-4.500)
== END | disposition home or self-care (01) ==
LOC: C.LAB1850 13:14
PROVIDERS: ATTEND Internal Medicine Endocrinology, Diabetes & Metabolism
DX: O99.280 Endocrine, nutritional and metabolic diseases complicating pregnancy, unspecified trimester (principal)

== ENCOUNTER → 2016-09-28 | Outpatient (CLI) | payer BC, OTHER ==
[2016-09-28 12:36] LABS: THYROID STIMULATING HORMONE 4.13 uIu/ml (0.300-4.500)
== END | disposition home or self-care (01) ==
LOC: C.LAB1850 10:49
PROVIDERS: ATTEND Internal Medicine Endocrinology, Diabetes & Metabolism
DX: E89.0 Postprocedural hypothyroidism (principal)

== ENCOUNTER → 2016-10-14 | Outpatient (CLI) | payer BC, OTHER ==
[~2016-10-14] MED LIST changes: -LEVO150T PO; -ONDA4TAB10 SL
[2016-10-14 11:52] LABS: THYROID STIMULATING HORMONE 1.61 uIu/ml (0.300-4.500)
[2016-10-14 12:49] LABS: GTGD 50 Grams
== END | disposition home or self-care (01) ==
LOC: C.LAB1850 09:53
PROVIDERS: ATTEND Internal Medicine Endocrinology, Diabetes & Metabolism
DX: Z34.82 Encounter for supervision of other normal pregnancy, second trimester (principal); O99.280 Endocrine, nutritional and metabolic diseases complicating pregnancy, unspecified trimester; E89.0 Postprocedural hypothyroidism; Z3A.00 Weeks of gestation of pregnancy not specified

== ENCOUNTER → 2016-10-25 | Outpatient (CLI) | payer OTHER ==
[2016-10-25 10:34] LABS: THYROID STIMULATING HORMONE 1.66 uIu/ml (0.300-4.500)
== END | disposition home or self-care (01) ==
LOC: C.LAB1850 08:44
PROVIDERS: ATTEND Obstetrics & Gynecology
DX: O99.280 Endocrine, nutritional and metabolic diseases complicating pregnancy, unspecified trimester (principal); E03.9 Hypothyroidism, unspecified; O28.1 Abnormal biochemical finding on antenatal screening of mother; Z3A.00 Weeks of gestation of pregnancy not specified

== ENCOUNTER → 2016-12-01 | Outpatient (CLI) | payer OTHER ==
[2016-12-01 10:55] LABS: THYROID STIMULATING HORMONE 5.27 uIu/ml (0.300-4.500)
[2016-12-05 15:38] LABS: TSI <89 % baseline (<140)
== END | disposition home or self-care (01) ==
LOC: C.LAB1850 09:27
PROVIDERS: ATTEND Internal Medicine Endocrinology, Diabetes & Metabolism
DX: O99.280 Endocrine, nutritional and metabolic diseases complicating pregnancy, unspecified trimester (principal); E89.0 Postprocedural hypothyroidism; Z3A.00 Weeks of gestation of pregnancy not specified

== ENCOUNTER → 2016-12-29 | Outpatient (CLI) | payer OTHER ==
[2016-12-29 10:58] LABS: THYROID STIMULATING HORMONE 0.309 uIu/ml (0.300-4.500)
== END | disposition home or self-care (01) ==
LOC: C.LAB1850 09:37
PROVIDERS: ATTEND Internal Medicine Endocrinology, Diabetes & Metabolism
DX: O99.280 Endocrine, nutritional and metabolic diseases complicating pregnancy, unspecified trimester (principal)

== ENCOUNTER → 2017-01-10 | Outpatient (CLI) | payer OTHER ==
[2017-01-10 12:01] LABS: URINE APPEARANCE CLEAR (CLEAR); URINE BILIRUBIN NEG (NEG); URINE COLOR DK YELLOW; URINE EPITHELIAL CELL AUTO 20-30 /lpf (0-5); URINE NITRITE NEG (NEG); URINE PH 6.5 (4.5-7.5); URINE SPECIFIC GRAVITY 1.025 (1.000-1.030); UROBILINOGEN NEG (NEG)
[2017-01-10 12:09] LABS: MANUAL MICROSCOPIC REQUIRED? NO; REVIEW REQ? NO
== END | disposition home or self-care (01) ==
LOC: C.LABSPEC 11:28
PROVIDERS: ATTEND Obstetrics & Gynecology
DX: Z34.82 Encounter for supervision of other normal pregnancy, second trimester (principal)

== ENCOUNTER → 2017-01-24 | Outpatient (CLI) | payer OTHER ==
[2017-01-24 10:40] LABS: HEMATOCRIT 34.7 % (37-47)
[2017-01-24 10:50] LABS: THYROID STIMULATING HORMONE 0.425 uIu/ml (0.300-4.500)
[2017-01-24 12:25] LABS: HEMATOCRIT 33.6 % (37-47)
== END | disposition home or self-care (01) ==
LOC: C.LAB1850 09:05
PROVIDERS: ATTEND Internal Medicine Endocrinology, Diabetes & Metabolism
DX: Z34.83 Encounter for supervision of other normal pregnancy, third trimester (principal); Z34.82 Encounter for supervision of other normal pregnancy, second trimester; O99.280 Endocrine, nutritional and metabolic diseases complicating pregnancy, unspecified trimester; Z3A.00 Weeks of gestation of pregnancy not specified; E03.9 Hypothyroidism, unspecified

== ENCOUNTER 2017-03-01 13:44 | Emergency (ER) | payer OTHER ==
[~2017-03-01] VITALS: Ht 160 cm; Wt 104.4 kg
[2017-03-01 13:45] VITALS: TEMP 36.5; Ht 160 cm; Wt 104.4 kg
[2017-03-01] MEDS ORDERED: ONDANSETRON INJ 2 MG/ML 2 ML VIAL IV STA (13:56)
[2017-03-01] MEDS ORDERED: SODIUM CHLORIDE 0.9% 1000ML 1,000 ML IV ONE ×2 (14:00→15:00)
[2017-03-01] MEDS ORDERED: LEVO150T PO (14:09)
[2017-03-01 14:13] LABS: BASO % 0.1 %; BASO ABS # 0.01 K/uL (0-0.2); COMPLETE YES; EOS % 0.3 %; IG% 0.4 %; LYMPH % 11.3 %; LYMPH ABS # 1.18 K/uL (1.2-3.4); MEAN CORPUSCULAR HEMOGLOBIN 27.7 pg (25-34); MEAN CORPUSCULAR HGB CONC 32.6 g/dl (32-36); MEAN PLATELET VOLUME 10.7 fL (7.4-10.4); MONO % 7.8 %; NEUT % 80.1 %; PLATELET COUNT 287 K/uL (130-400); RED BLOOD COUNT 4.47 M/uL (4.2-5.4); WHITE BLOOD COUNT 10.44 K/uL (4.8-10.8)
[2017-03-01 14:30] LABS: BUN/CREATININE RATIO 13.4 (10-20); CALCIUM 8.4 mg/dl (8.5-10.1); CREATININE 0.6 mg/dl (0.60-1.20); POTASSIUM 3.8 mmol/L (3.5-5.1)
[2017-03-01 14:40] LABS: ALB/GLOB RATIO 0.6 (0.9-2); THYROID STIMULATING HORMONE 2.39 uIu/ml (0.300-4.500)
[2017-03-01] MEDS ORDERED: ONDA4TAB10 SL (15:25)
[2017-03-01] MEDS ORDERED: ONDANSETRON HOME PACK 4MG OD TAB PO ONE (15:30)
[2017-03-01 15:44] VITALS: BP 90/54; PULSE 85; O2SAT 100
--- NOTE | 2017-03-01 17:21 | EMERGENCY ROOM VISIT NOTE ---
History First contact with patient: 13:49 Chief Complaint: DEHYDRATION Stated Complaint: DEHYDRATED,9 MON PREG, TO LD FOR STRESS TEST AFTER Nursing Triage Summary: Pt c/o n/v/d all day, Cnc Router Operator sent her in to have fluids and then go upstairs (L&D for stress test) 9 months . History of Present Illness The patient is a 31 year old female who presents to the Emergency Room with complaints of nausea and vomiting 8 episodes today. The patient did not have symptoms yesterday. Chills reports having 2 episodes of diarrhea. The patient is evidently 9 months (36 weeks) with no complications to this point. She contacted her CERTIFIED MASSAGE THERAPIST, who referred her to the ER for evaluation and IV fluids. The patient is expected to go up to labor and delivery for a nonstress test after her ER visit. She does follow with the [facility]. The patient does report some abdominal discomfort during vomiting, but no other distinct pain. She does not report recent travel history. She states that her daughter was ill with similar symptoms last week. The patient has not had difficulty urinating. She rates her discomfort a 2/10 and has not been able to tolerate anything for her symptoms. She considers herself usually healthy, only taking Synthroid daily. Review of Systems More than 10 systems were reviewed and otherwise negative with the exception of history of present illness. Past Medical/Surgical History Medical Problems: (1) Lumbar disc herniation with radiculopathy (2) Miscarriage (3) (4) Sciatica Surgical Problems: (1) S/P cholecystectomy (2) S/P thyroid surgery Family History Cancer Diabetes mellitus Heart disease Hypertension Social History Smoking Status: Never Smoker Alcohol Use: none Drug Use: none Marital Status: Housing Status: lives with family Occupation Status: employed Current/Historical Medications Scheduled Levothyroxine Sodium (Synthroid), 300 MCG PO DAILY Multivit/Min/Iron/Fol Ac/Pren ( Vitamin), 1 TAB PO DAILY Ondasetron Odt (Zofran Odt), 4 MG SL Q6H Physical Exam Vital Signs Date Time Temp Pulse Resp B/P (MAP) Pulse Ox O2 Delivery O2 Flow Rate FiO2 03/01/17 15:44 85 18 90/54 100 03/01/17 14:41 94 20 98 Room Air 03/01/17 14:28 90 03/01/17 13:45 36.5 123 18 110/73 99 Room Air Physical Exam VITALS: Vitals are noted on the nurse's note and reviewed by myself. Vital signs with tachycardia. GENERAL: Well-developed, well-nourished, white female, who is in no acute distress and resting comfortably. Patient is cooperative with the examination. MOUTH: Mucous membranes moist. Tonsils are not enlarged. Pharynx without erythema, blood, or exudate. Uvula midline. Airway patent. NECK: Supple without nuchal rigidity. No lymphadenopathy. No thyromegaly. Cervical spine is nontender. HEART: Tachycardic rate with regular rhythm LUNGS: Clear to auscultation bilaterally without wheezes, rales or rhonchi. No retractions or accessory muscle use. ABDOMEN: Positive normal bowel sounds x 4. Soft and consistent with nine-month . No distinct palpable tenderness. NEURO: Patient was alert and oriented to person place and time. CN II through XII grossly intact. Medical Decision & Procedures Laboratory Results 03/01/17 14:00 Red Blood Count 4.47, Mean Corpuscular Volume 85.0, Mean Corpuscular Hemoglobin 27.7, Mean Corpuscular Hemoglobin Concent 32.6, Mean Platelet Volume 10.7, Neutrophils (%) (Auto) 80.1, Lymphocytes (%) (Auto) 11.3, Monocytes (%) (Auto) 7.8, Eosinophils (%) (Auto) 0.3, Basophils (%) (Auto) 0.1, Neutrophils # (Auto) 8.37, Lymphocytes # (Auto) 1.18, Monocytes # (Auto) 0.81, Eosinophils # (Auto) 0.03, Basophils # (Auto) 0.01 03/01/17 14:00 Test 03/01/17 14:00 White Blood Count 10.44 K/uL (4.8-10.8) Red Blood Count 4.47 M/uL (4.2-5.4) Hemoglobin 12.4 g/dL (12.0-16.0) Hematocrit 38.0 % (37-47) Mean Corpuscular Volume 85.0 fL (80-100) Mean Corpuscular Hemoglobin 27.7 pg (25-34) Mean Corpuscular Hemoglobin Concent 32.6 g/dl (32-36) Platelet Count 287 K/uL (130-400) Mean Platelet Volume 10.7 fL (7.4-10.4) Neutrophils (%) (Auto) 80.1 % Lymphocytes (%) (Auto) 11.3 % Monocytes (%) (Auto) 7.8 % Eosinophils (%) (Auto) 0.3 % Basophils (%) (Auto) 0.1 % Neutrophils # (Auto) 8.37 K/uL (1.4-6.5) Lymphocytes # (Auto) 1.18 K/uL (1.2-3.4) Monocytes # (Auto) 0.81 K/uL (0.11-0.59) Eosinophils # (Auto) 0.03 K/uL (0-0.5) Basophils # (Auto) 0.01 K/uL (0-0.2) RDW Standard Deviation 44.9 fL (36.4-46.3) RDW Coefficient of Variation 14.6 % (11.5-14.5) Immature Granulocyte % (Auto) 0.4 % Immature Granulocyte # (Auto) 0.04 K/uL (0.00-0.02) Anion Gap 11.0 mmol/L (3-11) Est Creatinine Clear Calc Drug Dose 159.8 ml/min Estimated GFR () 142.8 Estimated GFR (Non- 123.2 BUN/Creatinine Ratio 13.4 (10-20) Calcium Level 8.4 mg/dl (8.5-10.1) Total Bilirubin 0.9 mg/dl (0.2-1) Aspartate Amino Transf (AST/SGOT) 23 U/L (15-37) Alanine Aminotransferase (ALT/SGPT) 29 U/L (12-78) Alkaline Phosphatase 166 U/L (45-117) Total Protein 7.7 gm/dl (6.4-8.2) Albumin 2.9 gm/dl (3.4-5.0) Globulin 4.8 gm/dl (2.5-4.0) Albumin/Globulin Ratio 0.6 (0.9-2) Thyroid Stimulating Hormone (TSH) 2.390 uIu/ml (0.300-4.500) Medications Administered Medications (Trade) Dose Ordered Sig/Michaelle Route Start Time Stop Time Status Last Admin Dose Admin Sodium Chloride 1,000 ml @ 999 mls/hr Q1H1M ONCE IV 03/01/17 14:00 03/01/17 15:00 DC 03/01/17 14:08 999 MLS/HR Ondansetron HCl (Zofran Inj) 4 mg NOW STAT IV 03/01/17 13:56 03/01/17 13:58 DC 03/01/17 14:08 4 MG Sodium Chloride 1,000 ml @ 999 mls/hr Q1H1M ONCE IV 03/01/17 15:00 03/01/17 16:00 DC 03/01/17 14:57 999 MLS/HR Ondansetron HCl (ZOFRAN ODT 4MG Home Pack) 1 homepack UD ONCE PO 03/01/17 15:30 03/01/17 15:31 DC 03/01/17 15:44 1 HOMEPACK ED Course Physical exam and history were performed. Nursing notes, EMR, and Medication List were personally reviewed. Patient appears to have nausea, vomiting, and diarrhea today prompting her presentation to the emergency department. On examination she is slightly tachycardic but does not appear toxic. IV access was established and labs were obtained. The patient was hydrated with normal saline and given IV Zofran. heart tones were performed by nursing, and heart rate is 140. The patient will review those above and was reviewed. She does have very slightly elevated white blood cell count, however this is felt to be from her vomiting. She does not have a significant anemia, bandemia, or significant electrolyte imbalance. TSH shows euthyroid state. Her remaining labs are essentially unremarkable. Overall the patient had significant improvement of her symptoms after hydration and antiemetics. She had normalization of her heart rate, which was in the 80s at the end of her stay. Overall the patient appears well and I do suspect that her symptoms are viral in etiology. At this time the patient will be taken upstairs to labor and delivery for a nonstress test. The patient will be given a home pack of Zofran and continuation prescription to be used if needed. She was otherwise invited back to the ER with any new, worsening, or concerning symptoms. The chart was completed utilizing [employer] Voice Recognition Software. Grammatical errors, random word insertions, pronoun errors, and incomplete sentences are an occasional consequence of this system due to software limitations, ambient noise, and hardware issues. Any formal questions or concerns about the content, text, or information contained within the body of this dictation should be directly addressed to the provider for clarification. . Medical Decision Differential diagnosis: Etiologies such as gastroenteritis, food borne illness, infections, appendicitis , diverticulitis, inflammatory bowel disease, obstruction, GI bleed, biliary pathology, as well as others were entertained. Blood Pressure Screening Patient's blood pressure: Normal blood pressure Impression Primary Impression: Nausea & vomiting Additional Impressions: Dehydration Departure Information Prescriptions Ondasetron Odt (ZOFRAN ODT) 4 Mg Tab 4 MG SL Q6H for Nausea, #12 TAB Prov: Gunnar Hussein PA-C 03/01/17 Referrals Karthikeyan Sevilla M.D. (PCP) Patient Instructions [facility] Problem Qualifiers Primary Impression: Nausea & vomiting Vomiting type: unspecified Vomiting Intractability: non-intractable Qualified Codes: R11.2 - Nausea with vomiting, unspecified Additional Impressions: Weeks of gestation: 36 weeks Qualified Codes: Z3A.36 - 36 weeks gestation of
== END 2017-03-01 15:47 | disposition home or self-care (01) ==
LOC: C.EDB 13:45 → C.EDC 15:47
DX: O99.89 Other specified diseases and conditions complicating pregnancy, childbirth and the puerperium (principal); E86.0 Dehydration; Z3A.36 36 weeks gestation of pregnancy; Z90.49 Acquired absence of other specified parts of digestive tract; Z80.9 Family history of malignant neoplasm, unspecified; Z83.3 Family history of diabetes mellitus; Z82.49 Family history of ischemic heart disease and other diseases of the circulatory system; Z79.899 Other long term (current) drug therapy

== ENCOUNTER 2017-03-01 16:00 | Outpatient (CLI) | payer OTHER ==
[~2017-03-01 16:00] MED LIST changes: +LEVO150T PO; +ONDA4TAB10 SL
== END 2017-03-01 16:40 | disposition home or self-care (01) ==
LOC: C.LD 16:00 → C.OPB 16:00
PROVIDERS: ATTEND Obstetrics & Gynecology
DX: O36.8190 Decreased fetal movements, unspecified trimester, not applicable or unspecified (principal); Z3A.00 Weeks of gestation of pregnancy not specified

== ENCOUNTER → 2017-03-07 | Outpatient (CLI) | payer OTHER | END | disposition home or self-care (01) | LOC: C.LABSPEC 13:19 | PROVIDERS: ATTEND Obstetrics & Gynecology | DX: Z34.83 Encounter for supervision of other normal pregnancy, third trimester (principal); Z3A.00 Weeks of gestation of pregnancy not specified ==

== ENCOUNTER 2017-03-29 05:51 | Inpatient (IN) | payer OTHER ==
[~2017-03-29] VITALS: Ht 160 cm; Wt 108.0 kg
[~2017-03-29 05:51] MED LIST changes: -LEVO200T6 PO; -LEVO25TA5 PO
[2017-03-29] MEDS ORDERED: LACTATED RINGER'S 1000ML 1,000 ML IV SCH ×2 (06:01→10:41)
[2017-03-29] MEDS ORDERED: LACTATED RINGER'S 1000ML 1,000 ML IV PRN (06:01)
[2017-03-29] MEDS ORDERED: EpHEDrine SULFATE INJ 50 MG/ML AMP ONE (06:11)
[2017-03-29] MEDS ORDERED: BUPIVACAINE 0.25% 30 ML VIAL ONE (06:11)
[2017-03-29] MEDS ORDERED: FENTANYL 2MCG/ML ROPIV 1.25MG/ML 100ML BAG EPI ONE (06:11)
[2017-03-29] MEDS ORDERED: FENTANYL CITRATE INJ 50 MCG/1 ML 2 ML VIAL ONE (06:12)
[2017-03-29 06:18] LABS: HEMATOCRIT 34.5 % (37-47); MEAN CELL VOLUME 82.5 fL (80-100); MEAN CORPUSCULAR HEMOGLOBIN 27.3 pg (25-34); MEAN PLATELET VOLUME 11.2 fL (7.4-10.4); PLATELET COUNT 221 K/uL (130-400); RED BLOOD COUNT 4.18 M/uL (4.2-5.4); WHITE BLOOD COUNT 7.32 K/uL (4.8-10.8)
[2017-03-29 06:54] VITALS: Ht 160 cm; Wt 108.0 kg
[2017-03-29] MEDS ORDERED: LACTATED RINGER'S 1000ML 500 ML IV PRN (07:04)
[2017-03-29] MEDS ORDERED: NALOXONE HCL INJ 1 MG in SODIUM CHLORIDE 0.9% 1000ML 1,000 ML IV PRN (07:04)
[2017-03-29] MEDS ORDERED: NALBUPHINE HCL INJ 10 MG/ML AMP IV PRN (07:15)
[2017-03-29] MEDS ORDERED: DiphenhydrAMINE HCL 50 MG/ML VIAL IV PRN (07:15)
[2017-03-29] MEDS ORDERED: EpHEDrine SULFATE INJ 50 MG/ML AMP IV PRN (07:15)
[2017-03-29] MEDS ORDERED: FENTANYL 2MCG/ML ROPIV 1.25MG/ML 100ML BAG EPI PRN (07:15)
[2017-03-29] MEDS ORDERED: NALOXONE HCL INJ 0.4 MG/1 ML VIAL/CARP IV PRN (07:15)
[2017-03-29] MEDS ORDERED: ONDANSETRON INJ 2 MG/ML 2 ML VIAL IV PRN (07:45)
[2017-03-29] MEDS ORDERED: CALCIUM CARBONATE 500 MG CHEWABLE PO PRN (07:45)
[2017-03-29] MEDS ORDERED: ONDANSETRON INJ 2 MG/ML 2 ML VIAL ONE (07:59)
[2017-03-29] MEDS ORDERED: CALCIUM CARBONATE 500 MG CHEWABLE ONE (08:00)
[2017-03-29] MEDS ORDERED: OXYTOCIN 30 UNITS/500ML NSS IV ONE (10:31)
[2017-03-29] MEDS ORDERED: SUPERCREAM 0.870 % 15GM JAR EXT PRN (10:45)
[2017-03-29] MEDS ORDERED: OXYTOCIN 30 UNITS/500ML NSS IV PRN (10:45)
[2017-03-29] MEDS ORDERED: HYDROCORTISONE ACETATE 25 MG SUPP PR PRN (10:45)
[2017-03-29] MEDS ORDERED: OXYCODONE/ACETAMINOPHEN 5-325 TAB PO PRN (10:45)
[2017-03-29] MEDS ORDERED: ACETAMINOPHEN 325 MG TAB PO PRN (10:45)
[2017-03-29] MEDS ORDERED: LANOLIN OINT EXT PRN ×2 (10:45)
[2017-03-29] MEDS ORDERED: BENZOCAINE 20% AER SPR 82.5 GM CAN EXT PRN (10:45)
--- NOTE | 2017-03-29 11:35 | DELIVERY SUMMARY ---
DATE OF OPERATION: 03/29/2017 VAGINAL DELIVERY NOTE DATE OF DELIVERY: 03/29/2017 PREOPERATIVE DIAGNOSIS: 1. Dawson intrauterine at 39-6/7 weeks. 2. Spontaneous onset of labor. 3. Group B strep negative. POSTOPERATIVE DIAGNOSIS: 1. Dawson intrauterine at 39-6/7 weeks. 2. Spontaneous onset of labor. 3. Group B strep negative. 4. Shoulder dystocia lasting 2 minutes. PROCEDURE: Spontaneous vaginal delivery and repair of first degree laceration. SURGEON: Dr. Alvarez. ASSIST: None. ESTIMATED BLOOD LOSS: 300. COMPLICATIONS: None. DISPOSITION: Stable in labor and delivery. DESCRIPTION: Harini Montanez is a 31-year-old 3, para 1 with a previous vaginal delivery of a 9+ pound infant. She was admitted by my partner Dr. Aguilera with spontaneous onset of labor. I accepted care of the patient on the morning of 03/29/2017. Several hours later the patient was found to be completely dilated by the nurse and when I came into the room to check on the patient I found them beginning to push. The patient was pushing very well. I therefore prepped for delivery. The patient through the next several pushes brought the head to and ultimately to delivery in an SHANITA position. There was a notably long time from delivery of the crown to complete delivery of the infant's face and then a turtle effect was noted. The patient was placed in McRobert's position. The nursing staff was notified that we had a significant shoulder dystocia and the emergency alert was activated to bring additional staff to the room. Through the next push significant suprapubic pressure was applied from the posterior aspect of the 's right shoulder and the patient was instructed to push. This did not result in delivery of the anterior arm. Therefore, pressure was removed and I made an attempt to physiologically sweep and deliver the 's left/posterior arm which was successful. Through the next push with again suprapubic pressure and McRobert's position the mother was able to deliver the right/anterior shoulder of the . At that point the dystocia was considered resolved however it did take several additional pushes to deliver the remainder of the as there was a fairly large trunk as well on the infant. The infant was ultimately delivered and placed on the maternal abdomen for the cord to be quickly clamped and cut by myself. Of note, the infant was making respiratory efforts even while on the maternal abdomen. The infant was moved to the warmer where resuscitation continues. Of note, both arms and hands of the were seen to move in a normal and equivalent fashion. A first degree peroneal laceration was noted and was repaired with 3-0 Vicryl. The placenta was then delivered and was found to be intact with a 3-vessel cord however it was large in appearance and was therefore sent for examination. Fundal massage was completed and IV dilute Pitocin was run and the fundus was firm with minimal lochia immediately after delivery. I spent some time in the room explaining to the patient, the father of the baby and accompanying supportive family members the nature of a shoulder dystocia, the maneuvers that had been used and we discussed that although there is currently no evidence of injury to this infant the will be examined by a talent development coordinator and monitored for any signs of injury that could have occurred during the delivery. At this moment I am not strongly suspicious of a fracture or specific injury to this . Questions were answered to the satisfaction of the patient and family and at the present time both mother and baby are in good condition having tolerated their delivery well. I attest to the content of the Intraoperative Record and any orders documented therein. Any exception s are noted below.
[2017-03-29] MEDS: LEVOTHYROXINE 150 MCG TAB PO SCH (13:08)
--- NOTE | 2017-03-29 13:10 | Anesthesia Procedure Note ---
Anesthesia Epidural Removal Nt Date & Time Mar 29, 2017 at 13:10 Vital Signs Pain Intensity: 8.0 Notes Mental Status: alert / awake / arousable, participated in evaluation Nausea / Vomiting: adequately controlled Pain: adequately controlled Airway Patency, RR, SpO2: stable & adequate BP & HR: stable & adequate Hydration State: stable & adequate Neuraxial Anesthesia: was administered Anesthetic Complications: no major complications apparent, pt satisfied with anesthetic care Epidural: removed without complications, with tip intact
[2017-03-29 13:30] VITALS: BP 134/76; PULSE 73; TEMP 36.3
[2017-03-29 16:40] VITALS: BP 128/78; PULSE 70; TEMP 36.4
[2017-03-29] MEDS: IBUPROFEN 600 MG TAB PO PRN (20:25)
[2017-03-29] MEDS: DOCUSATE SODIUM 100 MG CAP PO SCH (20:26)
[2017-03-29 20:40] VITALS: BP 110/74; PULSE 75; TEMP 36.7
[2017-03-29 23:30] VITALS: BP 99/64; PULSE 66; TEMP 36.6
[2017-03-30 04:05] VITALS: BP 96/65; PULSE 71; TEMP 36.6
--- NOTE | 2017-03-30 07:09 | Progress Note ---
Subjective Mar 30, 2017. Subjective conversation w/ patient, physical exam Ambulation: ambulating normally Voiding: no voiding problems Passing Gas: Yes Diet Tolerance: Regular Diet Lochia: Moderate Feeding Type: Breast Feeding Review of Systems Constitutional: No fever, No chills Respiratory: No cough Cardiac: No chest pain Breast: No problem reported Abdomen: No nausea, No vomiting Female : No problem reported Objective Vital Signs Date Time Temp Pulse Resp B/P (MAP) Pulse Ox O2 Delivery O2 Flow Rate FiO2 03/30/17 04:05 36.6 71 18 96/65 (75) Room Air 03/29/17 23:30 36.6 66 16 99/64 (76) Room Air 03/29/17 23:30 Room Air 03/29/17 20:40 36.7 75 16 110/74 (86) Room Air 03/29/17 20:40 Room Air 03/29/17 16:40 Room Air 03/29/17 16:40 36.4 70 16 128/78 (95) Room Air 03/29/17 13:30 36.3 73 20 134/76 (95) Physical Exam General Appearance: WELL-APPEARING, NO APPARENT DISTRESS Respiratory/Chest: no respiratory distress, no accessory muscle use Cardiovascular: no edema Abdomen: non tender, soft Fundus: Firm Extremities: no calf tenderness Laboratory Results Last 24 Hours Test 03/30/17 06:45 Assessment and Plan Problem List Medical Problems: (1) Dehydration Status: Acute (2) First trimester bleeding Status: Acute (3) First trimester Status: Acute (4) Inevitable Status: Acute (5) Lumbar back pain with radiculopathy affecting left lower extremity Status: Acute (6) Nausea and vomiting Status: Acute (7) Status: Acute Post- Day#: 1 Continue Routine Care: Routine post care
[2017-03-30 07:14] LABS: HEMATOCRIT 31.5 % (37-47)
[2017-03-30 07:15] VITALS: BP 100/67; PULSE 72; TEMP 36.5; O2SAT 95
--- NOTE | 2017-03-30 07:17 | Discharge Instructions ---
Discharge Instructions Date of Service Mar 30, 2017. Admission Reason for Admission: LABOR Discharge Discharge Diagnosis / Problem: vaginal delivery Discharge Goals Goal(s): Specific Goal(s) Activity Recommendations Activity Limitations: per Instructions/Follow-up section . Instructions / Follow-Up Instructions / Follow-Up ACTIVITY RECOMMENDATIONS: * Gradual return to full activity over the next 2-3 weeks. * No lifting - nothing heavier than baby over the next 2-3 weeks. * Do not engage in vigorous exercise, sexual activity or sports until cleared by your physician. * Do not drive or operate any motorized equipment until cleared by your physician. * You may shower/bathe daily. MEDICATIONS: For discomfort or pain, you may use Acetaminophen (Tylenol), Ibuprofen (Advil), or Naproxen (Aleve) following the package directions. For constipation you may use Colace following the package directions. BREAST CARE: If you are not breast feeding: * Wear a supportive bra 24 hours a day for one to two weeks. * Avoid stimulating your breasts and nipples as much as possible during the first few weeks after delivery. * When taking a shower, have the warm water hit your back, not breasts. * When your breasts feel full, apply ice packs. Usually three to four times a day helps ease the discomfort. * Take a mild pain medication (Tylenol / Motrin) when you are uncomfortable. If breast feeding: * Use breast milk to lubricate nipples. Lansinoh cream may be used for sore nipples. You do not need to remove cream prior to breast feeding. If using a different brand of cream, check the label for directions regarding removal of cream prior to nursing. * Wear a supportive bra. * If having problems with breasts or breast feeding, call a qm consultant or your health care provider. EPISIOTOMY CARE: After delivery, if you have an episiotomy (stitches), the following steps will ease discomfort and aid healing. * For the first 24 hours after delivery, place ice packs next to your episiotomy to help reduce swelling. * After the first 24 hour-period, sitz baths, either portable or in the tub, are suggested. A shower with a shower arm sprayed over the episiotomy may be comforting. * Julee care should be done after each voiding and bowel movement. Squirt warm water from a plastic bottle over the perineum (region of the body between the anus and urinary opening) and pat dry. * Use Dermoplast to ease discomfort. Shake container. Roslyn directly over the episiotomy. Place a Tucks on a clean sanitary pad next to your episiotomy. SPECIAL CARE INSTRUCTIONS: When you are discharged from the hospital, it is important for you to follow the instructions listed below: * During the first week at home, you should be able to care for yourself and your baby. In addition, the usual light household activities are encouraged. * Limit your activities to the way you feel. Do not try to clean the house or move furniture. Be sensible. * If you actively engage in sports and have done so up until the time of your delivery, you may resume these activities as soon as you feel able. This may take up to one month or even longer. Use good judgment. * Continue to take your vitamins for at least six weeks after the of your baby. * Your diet need not be limited unless you were on a special diet before your delivery. Breast-feeding mothers need around 2500 calories per day and at least 64-80 ounces of fluid per day (8 to 10 glasses). * You should eat foods from the four major food groups. Crash diets or fad diets are to be avoided. Eating lean meats, fresh fruits and vegetables, low-fat dairy products, high fiber foods and a regular exercise program, will help you get back to your pre- weight without putting your health at risk. * Constipation is sometimes a problem after delivery. Take a mild laxative as needed. If breast feeding, Milk of Magnesia is acceptable to use. You may use a suppository or Fleets enema if no episiotomy. * A daily shower or tub bath is suggested. Be sure to thoroughly and gently dry the perineum. * A bloody vaginal discharge will usually continue until around four weeks post . A small amount of bleeding may continue for as long as six weeks. Vaginal discharge changes from the bright red bleeding after delivery to pink then brownish and finally yellowish-pink before becoming white and disappearing. * Bleeding may increase with activity. Your first period may come in 4-8 weeks. If you are breast feeding, your period may be delayed even longer. * Cowlic (sex) can begin whenever both you and your partner feel comfortable and do not have any form of genital infection. It is recommended that you wait at least six weeks for internal and external healing to occur. If you have questions, please talk to your health care practitioner. A condom should be used to prevent infection and . * Foreplay, gentle intercourse and lubrication is very important the first several times to prevent pain. A water-based lubricant such as K-Y jelly or Astroglide may be used. * If you have RH negative blood and your baby is RH positive, you will receive RHOGAM by injection prior to discharge. The nurse will give you a card to keep with you that has the date and place that you received RHOGAM after delivery. * During your care, you had a Rubella screen done to check for the presence of rubella antibodies in your blood. If your test was negative, you will receive a Rubella vaccine prior to discharge. This vaccine may cause a fever, soreness at the injection site and flu-like symptoms. If these symptoms persist, notify your health care practitioner. is not advised for one month after a Rubella vaccine. * Verbalizes understanding of car seat law as reviewed with patient nursing. * Car Seat hand-out given and reviewed with patient by nursing. * Shaken baby information reviewed with patient by nursing. Call you doctor if: * Heavy bleeding (saturating several pads an hour) or passing clots the size of your fist. * A fever >101 degrees F (38.3 degrees C) on two occasions four hours apart and /or chills. * Unusual pain in the pelvic or vaginal areas. * "Baby Blues" lasting longer than two weeks. If you have any questions or concerns, call your health care practitioner at . FOLLOW UP VISIT: * Please call the office at to schedule a 6 week examination. It is important you keep this appointment. It is important for you to make arrangements for either yearly or twice yearly check-ups thereafter. Current Hospital Diet Patient's current hospital diet: Regular OB Diet Discharge Diet Recommended Diet: Regular Diet Pending Studies Studies pending at discharge: no Medical Emergencies . Who to Call and When: Medical Emergencies: If at any time you feel your situation is an emergency, please call 911 immediately. . Non-Emergent Contact Non-Emergency issues call your: Primary Care Provider . . "Provider Documentation" section prepared by Elizabeth Alvarez. . VTE Core Measure Inpt VTE Proph given/why not?: Treatment not indicated
[2017-03-30] MEDS: LEVOTHYROXINE 150 MCG TAB PO SCH (07:19)
[2017-03-30] MEDS: PRENATAL VITAMIN TAB PO SCH (07:20)
[2017-03-30] MEDS: FERROUS SULFATE 325 MG TAB PO SCH (07:20)
[2017-03-30] MEDS: DOCUSATE SODIUM 100 MG CAP PO SCH ×2 (07:20→19:48)
[2017-03-30] MEDS ORDERED: DIPHTHERIA/TETANUS/PERTUSSIS 0.5 ML SYR/VIAL IM. ONE (11:00)
[2017-03-30 12:10] VITALS: BP_DIAS 67; PULSE 72; TEMP 36.5
[2017-03-30 15:30] VITALS: BP 100/65; PULSE 76; TEMP 36.6
[2017-03-30] MEDS: IBUPROFEN 600 MG TAB PO PRN (19:48)
[2017-03-31 00:50] VITALS: BP 89/54; PULSE 68; TEMP 36.7; O2SAT 97
--- NOTE | 2017-03-31 07:23 | Progress Note ---
Subjective Mar 31, 2017. Subjective conversation w/ patient, physical exam Ambulation: ambulating normally Voiding: no voiding problems Objective Vital Signs Date Time Temp Pulse Resp B/P (MAP) Pulse Ox O2 Delivery O2 Flow Rate FiO2 03/31/17 00:50 36.7 68 16 89/54 (66) 97 Room Air 03/31/17 00:50 Room Air 03/30/17 15:30 Room Air 03/30/17 15:30 36.6 76 20 100/65 (77) Room Air 03/30/17 12:10 36.5 72 20 03/30/17 08:10 Room Air Physical Exam General Appearance: WELL-APPEARING, NO APPARENT DISTRESS Fundus: Firm, Non-Tender Extremities: no calf tenderness Assessment and Plan Problem List Medical Problems: (1) Dehydration Status: Acute (2) First trimester bleeding Status: Acute (3) First trimester Status: Acute (4) Inevitable Status: Acute (5) Lumbar back pain with radiculopathy affecting left lower extremity Status: Acute (6) Nausea and vomiting Status: Acute (7) Status: Acute Post- Day#: 2 Continue Routine Care: - desires d/c - instructions given - f/u in 6 weeks
[2017-03-31 07:50] VITALS: BP 104/72; PULSE 77; TEMP 36.8; O2SAT 96
[2017-03-31] MEDS: LEVOTHYROXINE 150 MCG TAB PO SCH (07:57)
[2017-03-31] MEDS: PRENATAL VITAMIN TAB PO SCH (08:56)
[2017-03-31] MEDS: DOCUSATE SODIUM 100 MG CAP PO SCH (08:56)
[2017-03-31] MEDS: FERROUS SULFATE 325 MG TAB PO SCH (08:56)
[2017-03-31 11:00] VITALS: BP_DIAS 72; PULSE 77; TEMP 36.8
== END 2017-03-31 11:30 | disposition home or self-care (01) | DRG 775 ==
LOC: C.OPB 05:51 → C.LD 05:51 → C.OPB 06:00 → C.LD 06:00 → C.OBG 13:25
PROVIDERS: ADMIT Obstetrics & Gynecology; ATTEND Obstetrics & Gynecology
PROC: 0HQ9XZZ Repair Perineum Skin, External Approach (ICD-10-PCS; principal; 2017-03-29)
PROC: 10E0XZZ Delivery of Products of Conception, External Approach (ICD-10-PCS; principal; 2017-03-29)
DX: O66.0 Obstructed labor due to shoulder dystocia (principal); O70.0 First degree perineal laceration during delivery; O99.284 Endocrine, nutritional and metabolic diseases complicating childbirth; E03.9 Hypothyroidism, unspecified; E86.0 Dehydration; Z37.0 Single live birth; Z3A.39 39 weeks gestation of pregnancy

== ENCOUNTER → 2017-05-11 | Outpatient (CLI) | payer OTHER | END | disposition home or self-care (01) | LOC: C.LAB1850 13:17 | PROVIDERS: ATTEND Internal Medicine Endocrinology, Diabetes & Metabolism | DX: E89.0 Postprocedural hypothyroidism (principal) ==

== ENCOUNTER → 2017-11-01 | Outpatient (CLI) | payer OTHER ==
[~2017-11-01] MED LIST changes: -ONDA4TAB10 SL
== END | disposition home or self-care (01) ==
LOC: C.LAB1850 07:53
PROVIDERS: ATTEND Internal Medicine Endocrinology, Diabetes & Metabolism
DX: E89.0 Postprocedural hypothyroidism (principal)

== ENCOUNTER 2018-07-02 02:11 | Inpatient (IN) ==
[2018-07-02] MEDS ORDERED: LACTATED RINGER'S 1,000 ML IV PRN (03:05)
[2018-07-02] MEDS ORDERED: OXYTOCIN 30 UNITS/500 ML BAG IV PRN (03:05)
[2018-07-02] MEDS ORDERED: LACTATED RINGER'S 1,000 ML IV SCH (03:15)
[2018-07-02 03:43] LABS: Hematocrit (blood only) 32.5 % (37-47); Hemoglobin 10.6 g/dL (12.0-16.0); Mean Corpuscular Volume 85.3 fL (80-100); Mean Platelet Volume 10.4 fL (7.4-10.4); Platelet Count 212 K/uL (130-400); RDW Standard Deviation 46.5 fL (36.4-46.3); Red Blood Count 3.81 M/uL (4.2-5.4); White Blood Count 8.53 K/uL (4.8-10.8)
[2018-07-02 03:47] LABS: Mean Corpuscular Hgb Conc 32.6 g/dL (32-36)
--- NOTE | 2018-07-02 07:44 | Obstetrical Progress Note ---
Date of Service July 02, 2018 37 weeks presents at 3 in the morning with a cervix that was 3 cm actively tavon the contractions are mild during this time 4 hours later I did recheck the patient she was still 3 cm 50% she says her contractions are more painful and she had a rapid labor last time I informed the patient we cannot induce labor as she was before 39 weeks but we would observe her for 1 more check in 2 hours then reassess Physical Exam Vital Signs (Past 24 Hours): Last Vital Signs Temp 36.9 C 07/02/18 07:03 Pulse 94 H 07/02/18 07:03 Resp 18 07/02/18 07:03 BP 102/59 L 07/02/18 07:03
[2018-07-02 11:22] VITALS: BP 102/65; PULSE 100
[2018-07-02 11:23] VITALS: TEMP 99
--- NOTE | 2018-07-02 11:50 | Obstetrical Progress Note ---
Date of Service July 02, 2018 Assessment & Plan (1) False labor after 37 completed weeks of gestation: d/c home, reactive nst. f/u in office in one wk Subjective pt feels ctx continuing, no change from when i examined her earlier but feels th ey are stronger than when she came in at 2am. no rom. +fm. Physical Exam Vital Signs (Past 24 Hours): Last Vital Signs Temp 37.2 C 07/02/18 11:20 Pulse 100 H 07/02/18 11:20 Resp 18 07/02/18 11:20 BP 102/65 07/02/18 11:20 Genitourinary: Manual OB Exam: + cervical dilation 3 cm, + cervical effacement 50%, + station high and + amniotic fluid OB Exam Monitor Tracing: + external FHT monitor used (reactive) and + external uterine monitor used (q4) Results & Data Laboratory Results urine dip neg protein, neg glucose
[2018-07-02] MEDS ORDERED: STROKE PATIENT DISCHARGE STA (11:59)
--- NOTE | 2018-07-03 11:14 | Discharge Summary ---
Date of Service July 11, 2018 Discharge Data Consultations 07/02/18 03:06 Consult Anesthesiology Stat
--- NOTE | 2018-07-10 11:24 | Discharge Summary ---
ADMISSION DIAGNOSES: 1. A 37-week intrauterine . 2. Prior history of rapid labor. DISCHARGE DIAGNOSIS: False labor. BRIEF HISTORY AND HOSPITAL COURSE: A 32-year-old who presented for my partner Dr. Dior on the day of her admission with contractions and approximately 3 cm dilated. She was 37 weeks. She reported a history of rapid labor. She was observed for at least 8 hours with no change in her cervix and was recommended to be discharged to home. She was not in labor. She was to followup as scheduled for her routine care. ROLA
== END 2018-07-02 12:28 | disposition home or self-care (01) | DRG 833 ==
LOC: OPB 02:11 → 4S1 02:14

== ENCOUNTER 2018-07-08 03:59 | Inpatient (IN) ==
[2018-07-08] MEDS ORDERED: LACTATED RINGER'S 1,000 ML IV PRN (05:18)
[2018-07-08] MEDS ORDERED: LACTATED RINGER'S 1,000 ML IV SCH ×4 (05:30→17:30)
[2018-07-08] MEDS ORDERED: ePHEDrine sulfate 50 MG/ML AMP ONE ×2 (05:31→08:18)
[2018-07-08] MEDS ORDERED: BUPIVACAINE 0.25% 30 ML VIAL ONE (05:31)
[2018-07-08] MEDS ORDERED: fentaNYL citrate 100 MCG/2 ML VIAL ONE (05:31)
[2018-07-08] MEDS ORDERED: fentaNYL 2MCG/ML ROPIV 1.25MG/ML 100 ML BAG EPI ONE (05:32)
[2018-07-08 05:41] LABS: Hematocrit (blood only) 35.3 % (37-47); Hemoglobin 11.7 g/dL (12.0-16.0); Mean Corpuscular Hgb Conc 33.1 g/dL (32-36); Mean Corpuscular Volume 83.3 fL (80-100); Mean Platelet Volume 10.8 fL (7.4-10.4); Platelet Count 224 K/uL (130-400); RDW Coefficient of Variation 15.3 % (11.5-14.5); RDW Standard Deviation 45.8 fL (36.4-46.3); Red Blood Count 4.24 M/uL (4.2-5.4); White Blood Count 8.66 K/uL (4.8-10.8)
[2018-07-08] MEDS ORDERED: CITRIC ACID/SODIUM CITRATE 15 ML UDC PO SCH (06:00)
--- NOTE | 2018-07-08 06:09 | Anesthesiology Consultation ---
Date of Service July 08, 2018 Assessment & Plan (1) Encounter for pre-operative examination: Chart Review Chart Review: Patient NOT seen in Pre Admission Testing and Acceptable Risk for Labor Epidural Consults Requested none Proposed Anesthesia Anesthesia Type: Labor Epidural Risk / Benefits Reviewed With: PT / POA / Parent / Guardian, Accepts Plan and Informed Consent Obtained History Height/Weight Height: 5 ft 3 in Weight: 110.223 kg Allergies Allergy/AdvReac Type Severity Reaction Status Date / Time No Known Allergies Allergy Verified 03/12/18 23:50 Medications Home Medications Medication Instructions Recorded Confirmed Last Taken PNV cmb#95-ferrous fumarate-FA 1 tab PO DAILY 07/08/18 07/08/18 Unknown [] levothyroxine [Synthroid] 137 mcg PO DAILY 07/08/18 07/08/18 Unknown Active Medications Generic Name Dose Route Start Last Admin Trade Name Freq PRN Reason Stop Dose Admin Lactated Ringer's 1,000 mls @ 125 mls/hr 07/08/18 05:30 07/08/18 06:40 Lr IV 07/10/18 05:29 125 mls/hr .Q8H ADAM Administration Lactated Ringer's 1,000 mls @ 999 mls/hr 07/08/18 05:18 07/08/18 06:40 Lr IV 08/07/18 05:17 0 mls/hr .Q1H1M PRN Infusion (Pre-Anesthesia) Past Medical History Medical History Hx of migraines Sciatica (Chronic) Dehydration (Acute) Lumbar disc herniation with radiculopathy (Acute) History of thyroid disorder Past Family History Family History Other FHx: migraine headaches Past Surgical History Surgical History History of back surgery Lumbar fusion x 2 Hx of cholecystectomy Hx of discectomy Hx of thyroidectomy Past Anesthesia History No Hx of Anesthesia Complications History of PONV No Motion Sickness Screening History of Motion Sickness: No Social History Smoking Status: Never smoker Hx Alcohol Use: No Hx Substance Use: No Exercise / Class Metabolic Activity II 4-5 Yardwork/Stairs/Walk up hill Negative for chest pain or shortness of breath. Physical Exam Vital Signs Last Vital Signs Temp 36.5 C 07/08/18 07:01 Pulse 88 07/08/18 07:24 Resp 18 07/08/18 07:01 BP 96/55 L 07/08/18 07:24 Pulse Ox 99 07/08/18 07:19 Constitutional + obese (Gravid uterus) ENMT Mouth: no TMJ abnormality and oral opening not small Thyromental Distance: > or= 3.5 Finger Breadths Mallampati Class: II Neck normal visual inspection; neck extension not limited Respiratory normal respiratory effort Auscultation: lungs clear to auscultation bilaterally Cardiovascular Rate/Rhythm: regular rate and regular rhythm Heart Sounds: no murmur Psychiatric A+Ox3, euthymic affect Orientation: alert and oriented x 3 Testing Laboratory Results 07/08/18 05:30
[2018-07-08] MEDS ORDERED: LIDOCAINE/EPINEPHRINE 2% 1:200,000 20 ML SDV ONE (07:18)
[2018-07-08] MEDS ORDERED: CEFAZOLIN 2000MG 2,000 MG/15 ML SYR IV STA (07:20)
[2018-07-08] MEDS ORDERED: CITRIC ACID/SODIUM CITRATE 15 ML UDC ONE (07:20)
--- NOTE | 2018-07-08 07:23 | Labor Progress Brief Note ---
Date of Service July 08, 2018 Subjective 32yo in labor, admitted overnight with RN exam changing from 3cm to 4cm with contractions Q3min. FHT reassuring. Patient labored spontaneously until requesting epidural this morning. When I came to see her she was in the midst of receiving epidural, so I waited until she was comfortable about 15min afterwards to check her. At that time I find cervix to be 8/100/no presenting part. Bedside US shows fetus in breech position. Patient is surprised and note s that Dr. Dior felt confident he was able to appreciate vertex last week when cervix was 2-3cm dilated in office. Patient counseled that unfortunately position can change, and agrees to section without delay. Assessment & Plan (1) Breech presentation of fetus: Advanced labor in multiparous patient with new finding of breech presentation. Emergent section recommended, consent done, patient moving to OR now. Fetus number: single or unspecified fetus Qualified Code(s): O32.1XX0 - Maternal care for breech presentation, not applicable or unspecified Physical Exam Vital Signs (Past 24 Hours): Last Vital Signs Temp 36.5 C 07/08/18 07:01 Pulse 84 07/08/18 07:14 Resp 18 07/08/18 07:01 BP 96/60 L 07/08/18 07:12 Pulse Ox 98 07/08/18 07:14
[2018-07-08] MEDS ORDERED: OXYTOCIN 10 UNITS/ML VIAL ONE ×4 (07:50→08:17)
[2018-07-08] MEDS ORDERED: MoRPHine SULFATE PF 1 MG/ML 10 ML AMP/VIAL ONE (07:50)
[2018-07-08] MEDS ORDERED: ONDANSETRON INJ 2 MG/ML 2 ML VIAL ONE (07:50)
[2018-07-08] MEDS ORDERED: CEFAZOLIN 250 MG/ML 1 GM VIAL ONE (07:50)
[2018-07-08] MEDS ORDERED: PROMETHAZINE HCL INJ 25 MG/ML 1 ML VIAL ONE (08:17)
[2018-07-08] MEDS ORDERED: PHENYLEPHRINE 100MCG/ML 5ML SYR ONE (08:18)
--- NOTE | 2018-07-08 08:24 | Post Operative Brief Note ---
Immediate Post Op Note v1 Date of Surgery July 08, 2018 Pre & Post Diagnosis Operation Date: 07/08/18 07:25 Pre-Op Diagnosis: 1. Transverse Spine-Down Presentation 2. Labor Post-Op Diagnosis: 1. Transverse Spine-Down Presentation 2. Labor Procedure Operation Date: 07/08/18 07:25 Actual Procedures p Primary T-incision caesarean section for the of a viable female at 0744. - Elizabeth Alvarez MD Surgeon Elizabeth Alvarez MD Auto Tech Gabby Watt RN Estimated Blood Loss 600 Findings Consistent with Post-Op Diagnosis Drains Zayas Catheter Complications none Disposition Accompanied Patient To Recovery: Yes Disposition: L&D
[2018-07-08 08:32] LABS: Base Excess Cord Venous Blood -2.3 mEq/L (-7.7-1.9); Cord Venous Blood HCO3 23 mmol/L (18.4-26.8); Cord Venous Blood PCO2 43 mmHg (30.4-57.2); Cord Venous Blood PO2 35 mmHg (14.1-43.3); Cord Venous Blood pH 7.35 (7.20-7.44)
[2018-07-08] MEDS ORDERED: PROPOFOL IV EMULSION 10 MG/ML 20 ML VIAL IV ONE (08:44)
[2018-07-08] MEDS ORDERED: SUCCINYLCHOLINE CHLORIDE 20 MG/ML 10 ML VIAL ONE (08:44)
[2018-07-08] MEDS ORDERED: ONDANSETRON INJ 2 MG/ML 2 ML VIAL IV PRN ×2 (08:55→09:15)
[2018-07-08] MEDS ORDERED: BENZOCAINE 20% AER SPR 82.5 GM CAN EXT PRN (08:55)
[2018-07-08] MEDS ORDERED: PROMETHAZINE HCL 25 MG in SODIUM CHLORIDE 0.9% 50 ML IV PRN ×2 (08:55→09:15)
[2018-07-08] MEDS ORDERED: KETOROLAC 30 MG/ML VIAL IV PRN (08:55)
[2018-07-08] MEDS ORDERED: SUPERCREAM 0.870% 15 GM JAR EXT PRN (08:55)
[2018-07-08] MEDS ORDERED: HYDROCORTISONE ACETATE 25 MG SUPP PR PRN (08:55)
[2018-07-08] MEDS ORDERED: DiphenhydrAMINE HCL 50 MG/ML VIAL IV PRN ×2 (08:55→09:15)
[2018-07-08] MEDS ORDERED: LEVOTHYROXINE SODIUM 137 MCG TABLET PO SCH (09:00)
--- NOTE | 2018-07-08 09:00 | Operative Report ---
Post Operative Report Pre & Post Diagnosis Labor Transverse spine-down presentation of fetus Procedure Primary T-incision section Surgeon Elizabeth Alvarez MD Cabin Supervisor Gabby Watt RN Estimated Blood Loss 600 Findings Consistent with Post-Op Diagnosis Specimens Cord gas, placenta Drains Curran Anesthesia Type Spinal Complications none Disposition Accompanied Patient To Recovery: Yes Disposition: L&D Description of Procedure The patient was brought to the operating room and placed on the table in the supine position with a leftward tilt, then prepped and draped in standard sterile fashion. A hard time out was taken prior to proceeding. A pfannensteil incision was created sharply and carried down to the fascia using bovie electrocautery. The fascia was nicked and then extended using rhodes scissors. The edges of the fascia were grasped with Rose clamps and elevated, then sharply and bluntly dissected off the underlying rectus. The midline of the rectus was identified and bluntly . The peritoneum was bluntly entered, and this entry was extended using pressure from the surgeon's hands. The bladder retractor was placed and the lower uterine segment was examined and found to be well developed. A bladder flap was created and the retractor was replaced behind this flap to protect the bladder. A transverse lower uterine incision was then created, with final entry to the uterine cavity made in a blunt manner with the surgeon's finger. Clear amniotic fluid was encountered. The fetus was encountered in transverse, spine-down, head to maternal L. The arm immediatey presented through the hysterotomy and was gently replaced. Each foot was identified and brought to the incision. Traction on the feet was unable to effect delivery of the legs or sacrum as the uterus was tavon firmly. A bandage scissor was used to T the incision approximately care home to the fundus. The legs and sacrum were then successfully delivered and the infant was rotated to sacrum-anterior presentation. The arms were swept in physiologic fashion and the head was delivered in flexion. The cord was doubly clamped and cut, then the infant which was moving its extremities and making respiratory effort was taken to the warmer for radiation oncology nurse care. The placenta was manually extracted, then the uterus was gently exteriorized from the maternal abdomen. The cavity was cleared of clot and debris using a dry lap sponge. The angles of the incision were identified with allis clamps, and repair began with two-layer closure of the vertical portion of the incision. The transverse part of the hysterotomy was then repaired in running locked fashion using 0-vicryl suture, followed by a second imbricating layer. The tubes and ovaries were examined and found to be normal bilaterally. The posterior gutter was irrigated and cleared of clot and debris. The uterus was then gently re-internalized to the abdomen. Two figure of eight sutures of chromic were used to address ooze at two points along the repair, and lobo was applied liberally. The lateral gutters were cleared of clot and debris using a damp lap sponge, and a final exam of the hysterotomy revealed good hemostasis. The rectus muscles were allowed to reapproximate naturally. The angle of the fascia was grasped with a Rose clamp and the fascia was then repaired in running non-locked fashion with 1-vicryl suture. At the completion of repair, the fascia was examined and found to be free of any defect. The subcutaneous tissue was copiously irrigated and then reapproximated using 3-0 chromic. The skin was then closed using 4-0 monocryl in a running subcuticular fashion and a dermabond dressing was applied. The curran was noted to be draining clear yellow urine as the patient was transferred back to her recovery room. I attest to the content of the Intraoperative Record and any orders documented therein. Any exceptions are noted below.
[2018-07-08] MEDS ORDERED: NALBUPHINE HCL INJ 10 MG/ML AMP IV PRN (09:15)
[2018-07-08] MEDS ORDERED: ePHEDrine sulfate 50 MG/ML AMP IV PRN ×2 (09:15)
[2018-07-08] MEDS ORDERED: LACTATED RINGER'S 500 ML IV PRN (09:15)
[2018-07-08] MEDS ORDERED: NALOXONE HCL 0.08 MG in SYRINGE 1.8 ML IV PRN (09:15)
[2018-07-08] MEDS ORDERED: MoRPHine SULFATE PF 1 MG/ML 10 ML AMP/VIAL EPI ONE (09:15)
[2018-07-08] MEDS ORDERED: ATROPINE SULFATE 0.1 MG/ML 10ML SYR IV PRN (09:15)
[2018-07-08] MEDS ORDERED: MoRPHine SULFATE 2 MG/ML CARP IV PRN (09:15)
[2018-07-08] MEDS ORDERED: NALOXONE HCL 0.4 MG/1 ML VIAL/CARP IV PRN (09:15)
[2018-07-08] MEDS ORDERED: NO NARCOTICS OR SEDATIVES SCH (09:15)
[2018-07-08] MEDS ORDERED: ACETAMINOPHEN 1000 MG/100 ML IV IV PRN (09:15)
[2018-07-08] MEDS ORDERED: NALOXONE HCL 1 MG in SODIUM CHLORIDE 0.9% 1000ML 1,000 ML IV PRN (09:15)
[2018-07-08] MEDS ORDERED: SODIUM CHLORIDE 0.9% 1000ML 1,000 ML IV SCH (09:15)
--- NOTE | 2018-07-08 09:21 | Anesthesiology Progress Note ---
Date of Service July 08, 2018 Anesthesia Post Procedure Vital Signs Vital Signs: Temp Pulse Resp BP Pulse Ox 07/08/18 09:16 82 100 07/08/18 09:13 75 81/49 L 07/08/18 09:11 71 99 07/08/18 09:06 80 97 07/08/18 09:05 79 93 07/08/18 09:02 71 96/53 L 07/08/18 09:01 72 98 07/08/18 08:56 68 98 07/08/18 08:52 90 111/57 L 07/08/18 08:51 91 H 98 07/08/18 08:46 88 98 07/08/18 08:43 84 109/53 L 07/08/18 08:42 16 07/08/18 08:41 84 98 07/08/18 08:36 84 95 07/08/18 08:32 36.4 C L 70 16 107/53 L 07/08/18 08:31 71 96 07/08/18 07:24 99 H 96/55 L 98 07/08/18 07:23 81 101/55 L 07/08/18 07:19 92 H 104/59 L 99 07/08/18 07:14 84 98 07/08/18 07:12 83 96/60 L 07/08/18 07:09 80 98/64 L 100 07/08/18 07:06 96 H 99/62 L 07/08/18 07:04 74 99 07/08/18 07:03 88 101/62 07/08/18 07:01 36.5 C 18 07/08/18 07:00 47 L 101/56 L 07/08/18 06:59 114 H 100 07/08/18 06:57 87 112/64 07/08/18 06:54 88 111/57 L 98 07/08/18 06:51 90 107/57 L 07/08/18 06:49 92 H 100 07/08/18 06:48 92 H 114/61 07/08/18 06:45 83 117/66 07/08/18 06:44 84 100 07/08/18 06:39 72 121/58 L 100 07/08/18 06:34 69 100 07/08/18 06:33 67 120/71 07/08/18 06:30 63 117/67 07/08/18 06:29 64 100 07/08/18 06:27 96 H 115/58 L 07/08/18 06:25 78 110/65 07/08/18 06:24 78 100 07/08/18 06:19 75 100 07/08/18 06:18 74 115/55 L 92 07/08/18 06:15 72 145/65 H 07/08/18 06:14 72 100 07/08/18 06:12 73 123/67 07/08/18 06:09 74 100 07/08/18 04:35 36.3 C L 18 07/08/18 04:08 80 116/66 Pain Intensity Abdomen: Pain Intensity: 7 Notes Mental Status: alert / awake / arousable and participated in evaluation Nausea / Vomiting: adequately controlled Pain: adequately controlled Airway Patency, RR, SpO2: stable & adequate BP & HR: stable & adequate Hydration State: stable & adequate Neuraxial Anesthesia: was administered and sensory block is resolving Anesthetic Complications: no major complications apparent
--- NOTE | 2018-07-08 09:21 | Anesthesia Procedure Note ---
Date of Service July 08, 2018 Anesthesia Post Epidural Note Vital Signs Vital Signs: Temp Pulse Resp BP Pulse Ox 36.4 C L 82 16 81/49 L 100 07/08/18 08:32 07/08/18 09:16 07/08/18 08:52 07/08/18 09:13 07/08/18 09:16 Pain Intensity Abdomen: Pain Intensity: 7 Notes Mental Status: alert / awake / arousable and participated in evaluation Nausea / Vomiting: adequately controlled Pain: adequately controlled Airway Patency, RR, SpO2: stable & adequate BP & HR: stable & adequate Hydration State: stable & adequate Neuraxial Anesthesia: was administered and sensory block is resolving Anesthetic Complications: no major complications apparent and Pt Satisfied with anesthetic care Epidural: Removed without complications and With tip intact
[2018-07-08] MEDS ORDERED: OXYTOCIN 30 UNITS in LACTATED RINGER'S 1,000 ML IV SCH (09:30)
[2018-07-08] MEDS: KETOROLAC 30 MG/ML VIAL IV PRN ×2 (09:36→20:20)
[2018-07-08] MEDS: SIMETHICONE 80 MG CHEW PO SCH ×4 (12:54→20:19)
[2018-07-08] MEDS: PRENATAL VITAMIN 1 TAB PO SCH (14:22)
[2018-07-08] MEDS: DOCUSATE SODIUM 100 MG CAP PO SCH ×2 (14:22→20:19)
[2018-07-09] MEDS ORDERED: KETOROLAC 30 MG/ML VIAL IV PRN (03:15)
[2018-07-09] MEDS ORDERED: MEPERIDINE HCL 50 MG/ML CARP IV PRN (03:15)
[2018-07-09] MEDS ORDERED: DiphenhydrAMINE HCL 50 MG/ML VIAL IV PRN (03:15)
[2018-07-09] MEDS ORDERED: DC INTRASPINAL MORPHINE SCH (03:15)
[2018-07-09] MEDS ORDERED: ONDANSETRON INJ 2 MG/ML 2 ML VIAL IV PRN (03:15)
--- NOTE | 2018-07-09 06:25 | Obstetrical Progress Note ---
Date of Service <Paul Quintana DO - Last Filed: 07/09/18 06:42> July 09, 2018 Assessment & Plan <Paul Quintana DO - Last Filed: 07/09/18 06:42> (1) delivery delivered: Harini Montanez is a 32 year old who delivered via at 38 weeks for breech presentation. O+, GBS-, Rubella immune. - Post-op day 1 - continue routine post-op care, encourage ambulation, advance diet as tolerated Day #:: 1 Subjective <Paul Quintana DO - Last Filed: 07/09/18 06:42> Passing Gas:: Yes Diet Tolerance:: clear liquids Lochia:: Small Feeding Type:: bottle feeding Harini states she is doing well this morning. She just had her curran cath removed this morning. She states she has had mild pain located to surgical site that is improved with analgesics. She denies nausea, vomiting, fever, chills, chest pain, shortness of breath, headache. Physical Exam <Paul Quintana DO - Last Filed: 07/09/18 06:42> Vital Signs (Past 24 Hours) Last Vital Signs Temp 36.7 C 07/09/18 04:15 Pulse 76 07/09/18 04:15 Resp 18 07/09/18 04:15 BP 90/57 L 07/09/18 04:15 Pulse Ox 97 07/09/18 04:15 Constitutional WD/WN, vitals as above cooperative and comfortable Eyes + anicteric sclerae and EOM intact bilaterally Neck normal visual inspection and trachea midline Respiratory normal respiratory effort, lungs clear to auscultation Cardiovascular RRR, no murmur, no edema Gastrointestinal (Abdomen) Percussion/Palpation: abdomen soft uterine fundus is 2cm below umbilicus and is firm/non-tender. Surgical incision site is clean, dry, and intact without any signs of infection Musculoskeletal SCDs in place to lower extremities Skin no rashes, warm and dry Neurologic moves all extremities and awake Psychiatric A+Ox3, euthymic affect Results & Data <Paul Quintana DO - Last Filed: 07/09/18 06:42> Laboratory Results Laboratory Results - last 24 hr 07/08/18 07/08/18 07/08/18 05:30 07:44 07:44 Cord ABG pH TNP Cord ABG pCO2 TNP Cord ABG pO2 TNP Cord ABG HCO3 TNP Cord ABG Base Excess TNP Cord ABG O2 Sat TNP Cord VBG pH 7.35 Cord VBG pCO2 43 Cord VBG pO2 35 Cord VBG HCO3 23 Cord VBG Base Excess -2.3 Cord VBG O2 Sat 71.0 H Barometric Pressure 728.3 Blood Gas Comments INFANT A A Blood Type O Positive Antibody Screen NEGATIVE Medications Administered Acetaminophen (Ofirmev) 1,000 mg IV Q8 PRN PRN Reason: Pain Stop: 08/07/18 09:14 Last Admin: 07/08/18 12:54 Dose: 1,000 mg Documented by: [id number] Docusate Sodium (Colace) 100 mg PO BID [facility] Stop: 08/07/18 08:59 Last Admin: 07/08/18 20:19 Dose: 100 mg Documented by: [id number] Admin: 07/08/18 14:22 Dose: Not Given Documented by: [id number] Lactated Ringer's (Lr) 1,000 mls @ 125 mls/hr IV .Q8H ADAM Stop: 08/07/18 17:29 Last Infusion: 07/09/18 03:00 Dose: 0 mls/hr Documented by: [id number] Infusion: 07/09/18 00:27 Dose: 125 mls/hr Documented by: [id number] Admin: 07/08/18 18:50 Dose: 125 mls/hr Documented by: [id number] Ketorolac Tromethamine (Toradol) 30 mg IV Q6H PRN PRN Reason: Pain Stop: 07/14/18 03:14 Last Admin: 07/09/18 05:52 Dose: 30 mg Documented by: [id number] Prenat Multivit/Gibson/Iron/Folic Ac ( Vitamin) 1 tab PO QAM ADAM Stop: 08/07/18 08:59 Last Admin: 07/08/18 14:22 Dose: Not Given Documented by: [id number] Simethicone (Mylicon) 80 mg PO QID [facility] Stop: 08/07/18 08:59 Last Admin: 07/08/18 20:19 Dose: 80 mg Documented by: [id number] Admin: 07/08/18 17:17 Dose: 80 mg Documented by: [id number] Admin: 07/08/18 14:22 Dose: Not Given Documented by: [id number] Admin: 07/08/18 12:54 Dose: 80 mg Documented by: [id number] <Elizabeth Alvarez MD - Last Filed: 07/09/18 07:18> Co-Signing Physician Notes I have examined the patient and agree with the resident note above.
[2018-07-09] MEDS: LEVOTHYROXINE SODIUM 137 MCG TABLET PO SCH (07:04)
[2018-07-09 07:44] LABS: Basophils # (auto) 0.01 K/uL (0-0.2); Basophils % (auto) 0.1 %; Eosinophils % (auto) 1.3 %; Hematocrit (blood only) 28.2 % (37-47); Hemoglobin 9.1 g/dL (12.0-16.0); Immature Granulocytes # (auto) 0.02 K/uL (0.00-0.02); Immature Granulocytes % (auto) 0.3 %; Lymphocytes # (auto) 1.43 K/uL (1.2-3.4); Lymphocytes % (auto) 19.2 %; Mean Corpuscular Hgb Conc 32.3 g/dL (32-36); Mean Corpuscular Volume 84.9 fL (80-100); Mean Platelet Volume 10.1 fL (7.4-10.4); Monocytes % (auto) 8.1 %; Neutrophils # (auto) 5.27 K/uL (1.4-6.5); Platelet Count 173 K/uL (130-400); RDW Coefficient of Variation 15.6 % (11.5-14.5); RDW Standard Deviation 47.4 fL (36.4-46.3); Red Blood Count 3.32 M/uL (4.2-5.4); White Blood Count 7.43 K/uL (4.8-10.8)
--- NOTE | 2018-07-09 08:07 | Anesthesiology Progress Note ---
Date of Service July 09, 2018 Anesthesia Post Procedure Vital Signs Vital Signs: Temp Pulse Pulse Resp BP BP Pulse Ox 07/09/18 07:42 36.9 C 73 109/73 98 07/09/18 04:15 36.7 C 76 18 90/57 L 97 07/09/18 02:40 18 97 07/09/18 01:30 18 97 07/09/18 00:28 18 96 07/09/18 00:05 36.7 C 82 18 91/60 L 97 07/08/18 23:35 18 97 07/08/18 22:10 17 96 07/08/18 21:00 18 96 07/08/18 20:00 36.8 C 99 H 20 95/63 L 96 07/08/18 19:00 18 99 07/08/18 18:00 18 98 07/08/18 17:30 20 98 07/08/18 16:30 36.5 C 78 18 93/61 L 98 07/08/18 15:30 18 98 07/08/18 14:28 16 99 07/08/18 14:08 36.7 C 89 12 104/70 99 07/08/18 13:30 16 99 07/08/18 12:36 07/08/18 12:26 76 14 93/62 L 99 07/08/18 12:25 14 99 07/08/18 11:20 66 16 109/72 98 07/08/18 10:50 36.6 C 75 14 100/64 96 07/08/18 10:42 74 90/52 L 07/08/18 10:41 86 100 07/08/18 10:36 83 100 07/08/18 10:32 36.5 C 75 16 88/49 L 07/08/18 10:31 65 100 07/08/18 10:26 73 100 07/08/18 10:22 76 88/44 L 07/08/18 10:21 73 98 07/08/18 10:16 68 99 07/08/18 10:13 63 95/46 L 07/08/18 10:11 60 100 07/08/18 10:07 81 85 L 07/08/18 10:06 80 98 07/08/18 10:02 70 16 94/50 L 07/08/18 10:01 64 100 07/08/18 09:56 75 98 07/08/18 09:52 62 92/55 L 88 L 07/08/18 09:51 85 99 07/08/18 09:46 78 100 07/08/18 09:42 87/53 L 07/08/18 09:41 73 100 07/08/18 09:36 77 100 07/08/18 09:34 70 90/53 L 07/08/18 09:32 16 07/08/18 09:31 70 100 07/08/18 09:26 70 98 07/08/18 09:23 71 82/52 L 07/08/18 09:22 18 07/08/18 09:21 75 99 07/08/18 09:16 82 100 07/08/18 09:13 75 81/49 L 07/08/18 09:12 16 07/08/18 09:11 71 99 07/08/18 09:06 80 97 07/08/18 09:05 79 93 07/08/18 09:02 71 16 96/53 L 07/08/18 09:01 72 98 07/08/18 08:56 68 98 07/08/18 08:52 90 16 111/57 L 07/08/18 08:51 91 H 98 07/08/18 08:46 88 98 07/08/18 08:43 84 109/53 L 07/08/18 08:42 16 07/08/18 08:41 84 98 07/08/18 08:36 84 95 07/08/18 08:32 36.4 C L 70 16 107/53 L 07/08/18 08:31 71 96 Pulse Ox 07/09/18 07:42 07/09/18 04:15 07/09/18 02:40 07/09/18 01:30 07/09/18 00:28 07/09/18 00:05 07/08/18 23:35 07/08/18 22:10 07/08/18 21:00 07/08/18 20:00 96 07/08/18 19:00 07/08/18 18:00 07/08/18 17:30 07/08/18 16:30 07/08/18 15:30 07/08/18 14:28 07/08/18 14:08 07/08/18 13:30 07/08/18 12:36 99 07/08/18 12:26 07/08/18 12:25 07/08/18 11:20 07/08/18 10:50 07/08/18 10:42 07/08/18 10:41 07/08/18 10:36 07/08/18 10:32 07/08/18 10:31 07/08/18 10:26 07/08/18 10:22 07/08/18 10:21 07/08/18 10:16 07/08/18 10:13 07/08/18 10:11 07/08/18 10:07 07/08/18 10:06 07/08/18 10:02 07/08/18 10:01 07/08/18 09:56 07/08/18 09:52 07/08/18 09:51 07/08/18 09:46 07/08/18 09:42 07/08/18 09:41 07/08/18 09:36 07/08/18 09:34 07/08/18 09:32 07/08/18 09:31 07/08/18 09:26 07/08/18 09:23 07/08/18 09:22 07/08/18 09:21 07/08/18 09:16 07/08/18 09:13 07/08/18 09:12 07/08/18 09:11 07/08/18 09:06 07/08/18 09:05 07/08/18 09:02 07/08/18 09:01 07/08/18 08:56 07/08/18 08:52 07/08/18 08:51 07/08/18 08:46 07/08/18 08:43 07/08/18 08:42 07/08/18 08:41 07/08/18 08:36 07/08/18 08:32 07/08/18 08:31 Pain Intensity Abdomen: Pain Intensity: 2 Notes Mental Status: alert / awake / arousable and participated in evaluation Nausea / Vomiting: adequately controlled Pain: adequately controlled Airway Patency, RR, SpO2: stable & adequate BP & HR: stable & adequate Hydration State: stable & adequate Neuraxial Anesthesia: was administered and sensory block resolved Anesthetic Complications: no major complications apparent Notes: Pt is 24 hours post emergency . She reports legs feel normal, but has not been up to ambulate yet since delivery. Denies headache at this time. Pt satisfied with anesthetic care and no questions at this time. Encouraged to request to see anesthesia team at any time if she develops any questions or concerns.
[2018-07-09] MEDS: DOCUSATE SODIUM 100 MG CAP PO SCH ×2 (08:20→20:23)
[2018-07-09] MEDS: OXYCODONE/ACETAMINOPHEN 5mg/325mg TAB PO PRN ×3 (08:21→20:22)
[2018-07-09] MEDS: SIMETHICONE 80 MG CHEW PO SCH ×4 (08:24→20:24)
[2018-07-09] MEDS: PRENATAL VITAMIN 1 TAB PO SCH (08:25)
[2018-07-09] MEDS ORDERED: DIPHTHERIA/TETANUS/PERTUSSIS 0.5 ML SYR/VIAL IM ONE (09:00)
[2018-07-09] MEDS: IBUPROFEN 600 MG TAB PO PRN ×2 (12:30→20:22)
[2018-07-10] MEDS: LEVOTHYROXINE SODIUM 137 MCG TABLET PO SCH (06:24)
[2018-07-10] MEDS: IBUPROFEN 600 MG TAB PO PRN ×3 (06:27→18:34)
--- NOTE | 2018-07-10 06:38 | Obstetrical Progress Note ---
Date of Service <Paul Quintana DO - Last Filed: 07/10/18 06:47> July 10, 2018 Assessment & Plan <Paul Quintana DO - Last Filed: 07/10/18 06:47> (1) delivery delivered: Harini Montanez is a 32 year old who delivered via at 38 weeks for breech presentation. O+, GBS-, Rubella immune. - POD #2 - encourage ambulation, analgesics as needed for pain relief, continue routine post-op/ care (2) Breech presentation of fetus: delivered via on 07/08/18. Fetus number: single or unspecified fetus Qualified Code(s): O32.1XX0 - Maternal care for breech presentation, not applicable or unspecified Subjective <Paul Quintana DO - Last Filed: 07/10/18 06:47> Ambulation: ambulating normally Voiding: no voiding problems Passing Gas:: Yes Diet Tolerance:: regular diet Lochia:: Small Feeding Type:: bottle feeding Harini had no acute events overnight. She reports pain to surgical incision site that is improved with analgesics. She also endorses intermittent mild abdominal cramping. She denies fever, chills, chest pain, shortness of breath, headache, nausea, vomiting. She was up out of bed yesterday and ambulated without difficulty. Her curran cath was removed yesterday and she has been urinating without difficulty. Physical Exam <Paul Quintana DO - Last Filed: 07/10/18 06:47> Vital Signs (Past 24 Hours) Last Vital Signs Temp 36.7 C 07/10/18 00:00 Pulse 75 07/10/18 00:00 Resp 16 07/10/18 00:00 BP 95/62 L 07/10/18 00:00 Pulse Ox 96 07/10/18 00:00 Constitutional WD/WN, vitals as above cooperative and comfortable Eyes + anicteric sclerae and EOM intact bilaterally Neck normal visual inspection and trachea midline Respiratory normal respiratory effort, lungs clear to auscultation Cardiovascular RRR, no murmur, no edema Gastrointestinal (Abdomen) Percussion/Palpation: abdomen soft; abdomen nontender uterine fundus is non-tender and 3cm inferior to umbilicus. Surgical incision site to lower abdomen is intact, dry, well healing without erythema, warmth or signs of infection. Musculoskeletal Head/Neck/Chest: normocephalic and head atraumatic Skin no rashes, warm and dry Neurologic moves all extremities and awake Psychiatric A+Ox3, euthymic affect Results & Data <Paul Quintana DO - Last Filed: 07/10/18 06:47> Laboratory Results Laboratory Results - last 24 hr 07/09/18 07:32 WBC 7.43 RBC 3.32 L Hgb 9.1 L Hct 28.2 L MCV 84.9 MCH 27.4 MCHC 32.3 RDW Std Deviation 47.4 H RDW Coeff of Bette 15.6 H Plt Count 173 MPV 10.1 Immature Gran % (Auto) 0.3 Neut % (Auto) 71.0 Lymph % (Auto) 19.2 [place] % (Auto) 8.1 Eos % (Auto) 1.3 Baso % (Auto) 0.1 Immature Gran # (Auto) 0.02 Neut # (Auto) 5.27 Lymph # (Auto) 1.43 [place] # (Auto) 0.60 H Eos # (Auto) 0.10 Baso # (Auto) 0.01 Medications Administered Acetaminophen (Ofirmev) 1,000 mg IV Q8 PRN PRN Reason: Pain Stop: 08/07/18 09:14 Last Admin: 07/08/18 12:54 Dose: 1,000 mg Documented by: [id number] Docusate Sodium (Colace) 100 mg PO BID [facility] Stop: 08/07/18 08:59 Last Admin: 07/09/18 20:23 Dose: 100 mg Documented by: [id number] Admin: 07/09/18 08:20 Dose: 100 mg Documented by: [id number] Cosigned by: [id number] Admin: 07/08/18 20:19 Dose: 100 mg Documented by: [id number] Admin: 07/08/18 14:22 Dose: Not Given Documented by: [id number] Lactated Ringer's (Lr) 1,000 mls @ 125 mls/hr IV .Q8H [facility] Stop: 08/07/18 17:29 Last Infusion: 07/09/18 03:00 Dose: 0 mls/hr Documented by: [id number] Infusion: 07/09/18 00:27 Dose: 125 mls/hr Documented by: [id number] Admin: 07/08/18 18:50 Dose: 125 mls/hr Documented by: [id number] Ibuprofen (Motrin) 600 mg PO Q4H PRN PRN Reason: Pain Stop: 08/07/18 08:54 Last Admin: 07/10/18 06:27 Dose: 600 mg Documented by: [id number] Admin: 07/09/18 20:22 Dose: 600 mg Documented by: [id number] Admin: 07/09/18 12:30 Dose: 600 mg Documented by: [id number] Cosigned by: [id number] Ketorolac Tromethamine (Toradol) 30 mg IV Q6H PRN PRN Reason: Pain Stop: 07/14/18 03:14 Last Admin: 07/09/18 05:52 Dose: 30 mg Documented by: [id number] Levothyroxine Sodium (Levothyroxine Sodium) 274 mcg PO DAILYBB [facility] Stop: 08/08/18 06:29 Last Admin: 07/10/18 06:24 Dose: 274 mcg Documented by: [id number] Admin: 07/09/18 07:04 Dose: 274 mcg Documented by: [id number] Oxycodone/Acetaminophen (Percocet 5mg/325mg) 1 - 2 tab PO Q4H PRN PRN Reason: Pain Stop: 07/23/18 03:14 Last Admin: 07/09/18 20:22 Dose: 1 tab Documented by: [id number] Admin: 07/09/18 12:31 Dose: 1 tab Documented by: [id number] Cosigned by: [id number] Admin: 07/09/18 08:21 Dose: 1 tab Documented by: [id number] Cosigned by: [id number] Prenat Multivit/[place]/Iron/Folic Ac ( Vitamin) 1 tab PO QAM [facility] Stop: 08/07/18 08:59 Last Admin: 07/09/18 08:25 Dose: 1 tab Documented by: [id number] Cosigned by: [id number] Admin: 07/08/18 14:22 Dose: Not Given Documented by: [id number] Simethicone (Mylicon) 80 mg PO QID [facility] Stop: 08/07/18 08:59 Last Admin: 07/09/18 20:24 Dose: 80 mg Documented by: [id number] Admin: 07/09/18 17:31 Dose: Not Given Documented by: [id number] Admin: 04/01/19 12:31 Dose: 80 mg Documented by: [id number] Cosigned by: [id number] Admin: 07/09/18 08:24 Dose: 80 mg Documented by: [id number] Cosigned by: [id number] Admin: 07/08/18 20:19 Dose: 80 mg Documented by: [id number] Admin: 07/08/18 17:17 Dose: 80 mg Documented by: [id number] Admin: 07/08/18 14:22 Dose: Not Given Documented by: [id number] Admin: 07/08/18 12:54 Dose: 80 mg Documented by: [id number] <Theresa Betancourt MD, FACOG - Last Filed: 07/10/18 07:58> Co-Signing Physician Notes Resident Physician Supervision Note: I interviewed and examined the patient. Discussed with Dr. Quintana and agree with findings and plan as documented in the note. Any exceptions or clarifications are listed here: Doing well PP day 2. Routine care. Documented By: Theresa Betancourt MD, FACOG
[2018-07-10 06:48] LABS: Hematocrit (blood only) 27.2 % (37-47); Hemoglobin 8.9 g/dL (12.0-16.0)
[2018-07-10] MEDS: DOCUSATE SODIUM 100 MG CAP PO SCH ×2 (08:45→21:07)
[2018-07-10] MEDS: SIMETHICONE 80 MG CHEW PO SCH ×4 (08:45→21:07)
[2018-07-10] MEDS: PRENATAL VITAMIN 1 TAB PO SCH (08:45)
[2018-07-10] MEDS: OXYCODONE/ACETAMINOPHEN 5mg/325mg TAB PO PRN ×2 (13:43→18:34)
[2018-07-11] MEDS: IBUPROFEN 600 MG TAB PO PRN ×2 (00:30→08:52)
[2018-07-11] MEDS: OXYCODONE/ACETAMINOPHEN 5mg/325mg TAB PO PRN ×2 (00:31→08:54)
[2018-07-11] MEDS: LEVOTHYROXINE SODIUM 137 MCG TABLET PO SCH (06:31)
--- NOTE | 2018-07-11 07:55 | Obstetrical Progress Note ---
Date of Service <Paul Quintana - Last Filed: 07/11/18 07:57> July 11, 2018 Assessment & Plan <Paul Quintana - Last Filed: 07/11/18 07:57> (1) delivery delivered: Harini Montanez is a 32 year old who delivered via at 38 weeks for breech presentation. O+, GBS-, Rubella immune. - POD #3 - encourage ambulation, analgesics as needed for pain relief, continue routine post-op/ care in hospital until discharge home - discharge instructions reviewed at bedside, all questions and concerns addressed (2) Breech presentation of fetus: delivered via on 07/08/18 Fetus number: single or unspecified fetus Qualified Code(s): O32.1XX0 - Maternal care for breech presentation, not applicable or unspecified Subjective <Paul Quintana - Last Filed: 07/11/18 07:57> Ambulation: ambulating normally Voiding: no voiding problems Passing Gas:: Yes Diet Tolerance:: regular diet Lochia:: Small Feeding Type:: bottle feeding Harini is doing well this morning, no acute events overnight. She denies fever, chills, chest pain, shortness of breath, nausea, vomiting, diarrhea. She states she is ready for discharge home today. Physical Exam <Paul Quintana - Last Filed: 07/11/18 07:57> Vital Signs (Past 24 Hours) Last Vital Signs Temp 36.4 C L 07/11/18 00:30 Pulse 71 07/11/18 00:30 Resp 18 07/11/18 00:30 BP 97/65 L 07/11/18 00:30 Pulse Ox 96 07/11/18 00:30 Constitutional WD/WN, vitals as above cooperative and comfortable Eyes + anicteric sclerae and EOM intact bilaterally Neck normal visual inspection and trachea midline Respiratory normal respiratory effort, lungs clear to auscultation Cardiovascular RRR, no murmur, no edema Gastrointestinal (Abdomen) Percussion/Palpation: abdomen soft; abdomen nontender uterine fundus if firm, non-tender, 3cm below umbilicus. Surgical site wound was inspected, is clean, dry, intact, without erythema, warmth or signs of infection. Musculoskeletal Head/Neck/Chest: normocephalic and head atraumatic Skin no rashes, warm and dry Neurologic moves all extremities and awake Psychiatric A+Ox3, euthymic affect Results & Data <Paul Quintana, DO - Last Filed: 07/11/18 07:57> Medications Administered Acetaminophen (Ofirmev) 1,000 mg IV Q8 PRN PRN Reason: Pain Stop: 08/07/18 09:14 Last Admin: 07/08/18 12:54 Dose: 1,000 mg Documented by: [id number] Docusate Sodium (Colace) 100 mg PO BID [facility] Stop: 08/07/18 08:59 Last Admin: 07/10/18 21:07 Dose: 100 mg Documented by: [id number] Admin: 07/10/18 08:45 Dose: 100 mg Documented by: [id number] Admin: 07/09/18 20:23 Dose: 100 mg Documented by: [id number] Admin: 07/09/18 08:20 Dose: 100 mg Documented by: [id number] Cosigned by: [id number] Admin: 07/08/18 20:19 Dose: 100 mg Documented by: [id number] Admin: 07/08/18 14:22 Dose: Not Given Documented by: [id number] Lactated Ringer's (Lr) 1,000 mls @ 125 mls/hr IV .Q8H [facility] Stop: 08/07/18 17:29 Last Infusion: 07/09/18 03:00 Dose: 0 mls/hr Documented by: [id number] Infusion: 07/09/18 00:27 Dose: 125 mls/hr Documented by: [id number] Admin: 07/08/18 18:50 Dose: 125 mls/hr Documented by: [id number] Ibuprofen (Motrin) 600 mg PO Q4H PRN PRN Reason: Pain Stop: 08/07/18 08:54 Last Admin: 07/11/18 00:30 Dose: 600 mg Documented by: [id number] Admin: 07/10/18 18:34 Dose: 600 mg Documented by: [id number] Admin: 07/10/18 12:24 Dose: 600 mg Documented by: [id number] Admin: 07/10/18 06:27 Dose: 600 mg Documented by: [id number] Admin: 07/09/18 20:22 Dose: 600 mg Documented by: [id number] Admin: 07/09/18 12:30 Dose: 600 mg Documented by: [id number] Cosigned by: [id number] Ketorolac Tromethamine (Toradol) 30 mg IV Q6H PRN PRN Reason: Pain Stop: 07/14/18 03:14 Last Admin: 07/09/18 05:52 Dose: 30 mg Documented by: [id number] Levothyroxine Sodium (Levothyroxine Sodium) 274 mcg PO DAILYBB [facility] Stop: 08/08/18 06:29 Last Admin: 07/11/18 06:31 Dose: 274 mcg Documented by: [id number] Admin: 07/10/18 06:24 Dose: 274 mcg Documented by: [id number] Admin: 07/09/18 07:04 Dose: 274 mcg Documented by: [id number] Oxycodone/Acetaminophen (Percocet 5mg/325mg) 1 - 2 tab PO Q4H PRN PRN Reason: Pain Stop: 07/23/18 03:14 Last Admin: 07/11/18 00:31 Dose: 1 tab Documented by: [id number] Admin: 07/10/18 18:34 Dose: 1 tab Documented by: [id number] Admin: 07/10/18 13:43 Dose: 1 tab Documented by: [id number] Admin: 07/09/18 20:22 Dose: 1 tab Documented by: [id number] Admin: 07/09/18 12:31 Dose: 1 tab Documented by: [id number] Cosigned by: [id number] Admin: 07/09/18 08:21 Dose: 1 tab Documented by: [id number] Cosigned by: [id number] Prenat Multivit/[place]/Iron/Folic Ac ( Vitamin) 1 tab PO QAM [facility] Stop: 08/07/18 08:59 Last Admin: 07/10/18 08:45 Dose: 1 tab Documented by: [id number] Admin: 07/09/18 08:25 Dose: 1 tab Documented by: [id number] Cosigned by: [id number] Admin: 07/08/18 14:22 Dose: Not Given Documented by: [id number] Simethicone (Mylicon) 80 mg PO QID [facility] Stop: 08/07/18 08:59 Last Admin: 07/10/18 21:07 Dose: 80 mg Documented by: [id number] Admin: 07/10/18 18:35 Dose: 80 mg Documented by: [id number] Admin: 07/10/18 12:22 Dose: 80 mg Documented by: [id number] Admin: 07/10/18 08:45 Dose: 80 mg Documented by: [id number] Admin: 07/09/18 20:24 Dose: 80 mg Documented by: [id number] Admin: 07/09/18 17:31 Dose: Not Given Documented by: [id number] Admin: 07/09/18 12:31 Dose: 80 mg Documented by: [id number] Cosigned by: [id number] Admin: 07/09/18 08:24 Dose: 80 mg Documented by: [id number] Cosigned by: [id number] Admin: 07/08/18 20:19 Dose: 80 mg Documented by: [id number] Admin: 07/08/18 17:17 Dose: 80 mg Documented by: [id number] Admin: 07/08/18 14:22 Dose: Not Given Documented by: [id number] Admin: 07/08/18 12:54 Dose: 80 mg Documented by: [id number] <Socrates Minor MD - Last Filed: 07/16/18 15:05> Co-Signing Physician Notes Patient seen and agree with the above findings and plan
[2018-07-11] MEDS: PRENATAL VITAMIN 1 TAB PO SCH (08:52)
[2018-07-11] MEDS: DOCUSATE SODIUM 100 MG CAP PO SCH (08:52)
--- NOTE | 2018-07-12 21:55 | Discharge Summary ---
Date of Service July 12, 2018 Discharge Data Consultations 07/08/18 05:18 Consult Anesthesiology Stat Procedures Performed Operation Date: 07/08/18 07:25 Actual Procedures p Section in LD; Live female infant at 0744(Bilateral) - Elizabeth Alvarez MD Hospital Course (1) Breech presentation of fetus: Patient admitted in labor and found to have breech presentation of fetus. She was taken for section, at which time the fetus had actually moved again into transverse presentation, requiring a T-incision of the uterus in order to allow delivery. The remainder of her delivery was uncomplicated and she was discharged home in good condition after an uncomplicated postoperative recovery. Plan for office f/u in 6 weeks.
== END 2018-07-11 11:30 | disposition home or self-care (01) | DRG 788 ==
LOC: OPB 03:59 → 4S1 04:00 → 4S2 11:29
DX: Z3A.38 38 weeks gestation of pregnancy; O32.2XX0 Maternal care for transverse and oblique lie, not applicable or unspecified; Z37.0 Single live birth